=== PATIENT | female | born 1940 | race Hispanic/Latino ===

== ENCOUNTER → 2017-02-22 | Day surgery (SDC) | payer OTHER ==
[~2017-02-22] MED LIST: BUPIVACAINE 0.25%/EPI 30ML SDV INJ ONE; CATAPRES-TTS 21 EACH PO; DECARA25000 UNIT PO; DILANTIN100 MG PO; EXEMESTANE25 MG PO; FENTANYL CITRATE/PF 100MCG/2 ML INJ ONE; LEVOTHYROXINE100 MC1 PO; LIDOCAINE HCL 1% LOCAL INJ 20 ML VIAL ONE; LIDOCAINE HCL 2% LOCAL INJ 5 ML SDV VIAL INJ ONE; OMEPRAZOLE40 MG PO; ONCE DAILY1 EACH PO; OXYBUTYNIN CHLOR5 M1 PO; PROBIOTIC & AC1 EACH PO; PROPOFOL IV EMULSION 10 MG/ML 50 ML VIAL ONE; RESTASIS1 EACH OP; SERTRALINE HCL50 MG PO; STOOL SOFTENER100 MG PO; TYLENOL WITH C1 EACH PO
[2017-02-22 13:10] LABS: BASOPHILS % 0.7 % (0.0-1.0); EOSINOPHILS % 0.7 % (0.0-6.0); HEMATOCRIT 40.8 % (34.2-44.1); HEMOGLOBIN 13.8 g/dL (12.0-16.0); LYMPHOCYTES # (AUTO) 2.3 (1.0-3.2); LYMPHOCYTES % 38.3 % (18.0-39.1); MEAN CORPUSCULAR HEMOGLOBIN 32.2 pg (28-32); MEAN CORPUSCULAR HGB CONC 33.8 g/dL (31-35); MEAN CORPUSCULAR VOLUME 95.1 fL (81-99); MONOCYTES # (AUTO) 0.4 (0.2-0.8); MONOCYTES % 6.1 % (4.4-11.3); NEUTROPHILS # (AUTO) 3.3 (2.1-6.9); PLATELET COUNT 251 x10e3/uL (140-360); RED BLOOD COUNT 4.29 x10e6/uL (3.6-5.1); RED CELL DISTRIBUTION WIDTH 14.5 % (11.7-14.4)
[2017-02-22 13:27] LABS: ALANINE AMINOTRANSFERASE 32 IU/L (0-55); ALBUMIN 4.1 g/dL (3.5-5.0); ALBUMIN/GLOBULIN RATIO 1.1 (0.8-2.0); ALKALINE PHOSPHATASE 142 IU/L (40-150); ANION GAP 14.6 mmol/L (8-16); BLOOD UREA NITROGEN 12 mg/dL (7-26); BUN/CREATININE RATIO 16 (6-25); CALCIUM 9.3 mg/dL (8.4-10.2); CARBON DIOXIDE 26 mmol/L (22-29); CHLORIDE 103 mmol/L (98-107); CREATININE, SERUM 0.74 mg/dL (0.57-1.11); EST GLOMERULAR FILTRATION RATE > 60 ML/MIN (60-); GLUCOSE 96 mg/dL (74-118); POTASSIUM 3.6 mmol/L (3.5-5.1); SODIUM 140 mmol/L (136-145)
--- NOTE | 2017-02-22 16:26 | Operative Report ---
PREOPERATIVE DIAGNOSIS: Malfunctioning venous access port. POSTOPERATIVE DIAGNOSIS: Malfunctioning venous access port. OPERATION PERFORMED: Removal of right subclavian venous access port. ANESTHESIA: Local 1% Xylocaine and MAC. COMPLICATIONS: None. ESTIMATED BLOOD LOSS: Minimal. DESCRIPTION OF PROCEDURE: With the patient lying in bed in the supine position under good IV sedation, the right chest was prepped with Betadine solution and draped in the usual manner. The area overlying the port was then infiltrated with 1% Xylocaine solution. An incision was made, carried down through the subcutaneous tissue and through the capsule of the port. The port was being held down with 3 sutures of Prolene. All 3 were removed and the port very easily was removed in its entirety without any problems. The hemostasis was ascertained. The capsule of the port was then closed with interrupted sutures of 3-0 Vicryl. The subcutaneous tissue was approximated with 4-0 Vicryl and the skin was closed with subcuticular 5-0 Vicryl. Benzoin, Steri-Strips, and dressings were applied. The sponge, lap, and needle count was correct. The patient tolerated the procedure well and returned to the recovery room in stable condition. Job#: [id number] VAS
== END | disposition home or self-care (01) ==
LOC: OR 12:09
PROVIDERS: ATTEND Surgery
DX: T82.598A Other mechanical complication of other cardiac and vascular devices and implants, initial encounter (principal); C50.919 Malignant neoplasm of unspecified site of unspecified female breast; I10 Essential (primary) hypertension; E78.5 Hyperlipidemia, unspecified; M19.90 Unspecified osteoarthritis, unspecified site; R56.9 Unspecified convulsions; K29.70 Gastritis, unspecified, without bleeding; K21.9 Gastro-esophageal reflux disease without esophagitis; N39.0 Urinary tract infection, site not specified; R05 Cough; F32.9 Major depressive disorder, single episode, unspecified; Y83.8 Other surgical procedures as the cause of abnormal reaction of the patient, or of later complication, without mention of misadventure at the time of the procedure
CPT/HCPCS: 36415; 36590; 80053; 85025; 93005; J2001 ×2

== ENCOUNTER 2017-02-26 10:44 | Emergency (ER) | payer OTHER ==
[~2017-02-26] VITALS: Ht 157.5 cm; Wt 60.3 kg
[~2017-02-26 10:44] MED LIST changes: -BUPIVACAINE 0.25%/EPI 30ML SDV INJ ONE; -FENTANYL CITRATE/PF 100MCG/2 ML INJ ONE; -LIDOCAINE HCL 1% LOCAL INJ 20 ML VIAL ONE; -LIDOCAINE HCL 2% LOCAL INJ 5 ML SDV VIAL INJ ONE; -PROPOFOL IV EMULSION 10 MG/ML 50 ML VIAL ONE
== END 2017-02-26 12:08 | disposition home or self-care (01) ==
LOC: ER 10:44
DX: H10.023 Other mucopurulent conjunctivitis, bilateral (principal); I10 Essential (primary) hypertension
CPT/HCPCS: 99282

== ENCOUNTER 2017-03-01 11:24 | Emergency (ER) | payer OTHER ==
[~2017-03-01] VITALS: Ht 157.5 cm; Wt 60.3 kg
== END 2017-03-01 13:06 | disposition home or self-care (01) ==
LOC: ER 11:24
DX: H10.13 Acute atopic conjunctivitis, bilateral (principal)
CPT/HCPCS: 99281

== ENCOUNTER 2018-06-20 06:58 | Observation (INO) | payer OTHER ==
--- NOTE | 2018-06-17 11:01 | Diagnostic Imaging Report ---
EXAMINATION: CHEST 2 VIEWS INDICATION: Pre-op radiograph. COMPARISON: None FINDINGS: TUBES and LINES: None. LUNGS: Lungs are well inflated. There is no evidence of pneumonia or pulmonary edema. PLEURA: No pleural effusion or pneumothorax. HEART AND MEDIASTINUM: The cardiomediastinal silhouette is unremarkable. BONES AND SOFT TISSUES: No acute osseous abnormality. Status post right mastectomy. Right axillary surgical clips. UPPER ABDOMEN: No free air under the diaphragm. IMPRESSION: No acute radiographic abnormality. Signed by: Dr. Jacques Samuel MD on 06/17/2018 10:58 AM
--- OUTSIDE RECORDS SUMMARY | 2018-06-20 07:02 | XMS REPORT | Summary of Care ---
Author Author [facility] Organization [facility] Address Unknown Phone Unavailable Encounter HQ Ryan(FIN) [id number] Date(s): 05/14/17 - 05/14/17 [facility] [address], [address] [place], [place] [id number]- [phone] Discharge Disposition: Home or Self Care Attending Physician: Melissa Griffin MD Vital Signs Most recent to 1 2 oldest [Reference Range]: Height 157.48 cm (05/14/17 11:30 AM) Temperature Oral 97.3 DegF [96.4-99.1 DegF] (05/14/17 11:30 AM) Blood Pressure 135/67 mmHg 152/75 mmHg [90-140/60-90 mmHg] (05/14/17 1:36 PM) *HI* (05/14/17 11:30 AM) Respiratory Rate 16 BRMIN [14-20 BRMIN] (05/14/17 11:30 AM) Peripheral Pulse 66 bpm Rate [60-100 bpm] (05/14/17 11:30 AM) Weight 59.545 kg (05/14/17 11:30 AM) Body Mass Index 24.01 m2 (05/14/17 11:30 AM) Problem List Condition Effective Dates Status Health Status Informant 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 Colitis(Confirmed)2 Resolved Conjunctivitis3 01/02/13 Resolved Intolerance of oral Active bisphosphonate therapy(Confirmed) Gastritis(Confirmed) Active GERD - Active Gastro-esophageal reflux disease(Confirmed) H/O squamous cell Resolved carcinoma of skin(Confirmed) Hyperlipidemia(Confi Active rmed) Hypothyroidism(Confi Active rmed)4 Irritable bowel Active syndrome5 Recurrent cancer of Active right breast.(Confirmed) Mixed anxiety and 12/08/12 Active depressive disorder(Confirmed)6 Osteoarthritis7 06/06/13 Active Osteoporosis(Confirm Active ed) Seizure Active disorder(Confirmed)8 UI (urinary Active incontinence)(Confir med) Vitamin D 08/09/13 Active deficiency9 1Data migrated from [employer] on 08/04/14. 2hospitalized 10/03/2015 and received antibiotics 3Data migrated from [employer] on 09/22/14. 4Data migrated from [employer] on 08/04/14. 5Data migrated from [employer] on 08/04/14. 6Data migrated from [employer] on 08/04/14. 7Data migrated from [employer] on 08/04/14. 8Data migrated from [employer] on 08/04/14. 9Data migrated from [employer] on 08/04/14. Allergies, Adverse Reactions, Alerts Substance Reaction Severity Status penicillins1 Active penicillin Active midazolam2 Active Versed Active 1Data migrated from [employer] on 10/04/14. Originally documented as PENICILLIN. 2Data migrated from [employer] on 07/03/14. Originally documented as VERSED. Medications levothyroxine 88 mcg (0.088 mg) oral tablet 88 microgram=1 tab, PO, Daily, # 90 tab, 0 Refill(s), [id number], Dose decrease from 100 to 88 mcg Start Date: 02/19/17 Stop Date: 03/09/17 Status: Completed levothyroxine 88 mcg (0.088 mg) oral tablet See Instructions, # 90 tab, TAKE ONE TABLET BY MOUTH ONCE DAILY .DOSE DECREASE FROM 100 TO 88 MCG., [id number] Start Date: 08/03/17 Stop Date: 09/13/17 Status: Discontinued Results No data available for this section Immunizations Given and Recorded Vaccine Date Status Refusal Reason influenza virus vaccine, inactivated1 12/08/17 Given influenza virus vaccine, inactivated2 12/18/16 Given influenza virus vaccine, inactivated 02/11/15 Given influenza virus vaccine, inactivated3 02/15/14 Given influenza virus vaccine, inactivated4 11/29/13 Given influenza virus vaccine, inactivated5 12/08/12 Given pneumococcal 13-valent vaccine6 02/15/14 Given Hx influenza vaccine-unspecified7 12/08/12 Given pneumococcal 23-valent vaccine8 01/14/12 Given 1Result Comment: Patient waited in room ten mins no allergic reaction. 2Result Comment: Patient waited in room ten mins, no allergic reaction. 3Admin Note: had at Drs office in nov 2013 4Result Comment: fluzone high dose [[id number]]. Migrated from OBS ; Data migrated from [employer] on 04/09/2015. 5Result Comment: fluzone (>3 yrs.) [[id number]]. Migrated from OBS ; Data migrated from [employer] on 04/09/2015. 6Admin Note: had at Drs office 2 years ago 7Result Comment: done. Migrated from OBS ; Data migrated from [employer] on 04/09/2015. 8Result Comment: pneumovax. Migrated from OBS ; Data migrated from [employer] on 04/09/2015. Procedures Procedure Date Related Diagnosis Body Site Status Mammogram1, 2 03/31/18 Completed Examination of eye3 01/14/18 Completed Bone density scan4 10/20/17 Completed Mastectomy of right breast5 01/2016 Completed Biopsy of breast6 09/05/15 Completed Echocardiogram7 12/28/14 Completed Endoscopy8 11/21/14 Completed Colonoscopy9 12/2011 Completed Appendectomy Completed CEIOL - Cataract extraction and insertion of Completed intraocular lens Cholecystectomy Completed Hysterectomy Completed Lithotripsy of gall bladder using Completed fluoroscopic guidance 1Lymph node 3 cm needs USG biopsy. 2Left diagnostic mammogram: negative. aanual screening in a year Dr Trujillo 3Dr Fuad Solano 4Osteoporosis 5010/16/2015 6Right breast invasive lobular carcinoma 7EF 68% Dr Blackmon 8Gastritis (Dr Rondon) 9Internal Hemorrhoids Dr Rondon Social History Social History Type Response Substance Abuse Use: None. Alcohol Never Smoking Status Never smoker; Exposure to Tobacco Smoke None; Cigarette Smoking Last 365 Days No; Reg Smoking Cessation Counseling No entered on: 03/14/18 Assessment and Plan No data available for this section
--- OUTSIDE RECORDS SUMMARY | 2018-06-20 07:02 | XMS REPORT | Summary of Care ---
Author Author [facility] Organization [facility] Address Unknown Phone Unavailable Encounter MATT Davis(FIN) [id number] Date(s): 05/14/17 - 05/14/17 [facility] [address], [address] [place] [address] [phone] Discharge Disposition: Home or Self Care Attending [...] Active deficiency1 Colitis(Confirmed)2 Resolved Conjunctivitis3 01/02/13 Resolved Gastritis(Confirmed) Active GERD - Active Gastro-esophageal reflux disease(Confirmed) H/O squamous cell Resolved carcinoma of skin(Confirmed) Hypertriglyceridemia Active (Confirmed) Hypothyroidism(Confi Active rmed)4 Irritable bowel Active syndrome5 [...] Daily, # 90 tab, 0 Refill(s), [id number], Dose decrease from 100 to 88 mcg Start Date: 02/19/17 Stop Date: 03/09/17 Status: Completed levothyroxine 88 mcg (0.088 mg) oral tablet See Instructions, # 90 tab, TAKE ONE TABLET BY MOUTH ONCE DAILY .DOSE DECREASE FROM 100 TO 88 MCG., Pharmacy: [id number] Start Date: 08/03/17 Status: Ordered Results No data available for this section Immunizations Given and Recorded Vaccine Date Status Refusal Reason influenza virus vaccine, inactivated1 12/18/16 Given influenza virus vaccine, inactivated 02/11/15 Given influenza virus vaccine, inactivated2 02/15/14 Given influenza virus vaccine, inactivated3 11/29/13 Given influenza virus vaccine, inactivated4 12/08/12 Given pneumococcal 13-valent vaccine5 02/15/14 Given Hx influenza vaccine-unspecified6 12/08/12 Given pneumococcal 23-valent vaccine7 01/14/12 Given 1Result Comment: Patient waited in room ten mins, no allergic reaction. 2Admin Note: had at Drs office in nov 2013 3Result Comment: fluzone high dose [[id number]]. Migrated from OBS ; Data migrated from [employer] on 04/09/2015. 4Result Comment: fluzone (>3 yrs.) [[id number]]. Migrated from OBS ; Data migrated from [employer] on 04/09/2015. 5Admin Note: had at Drs office 2 years ago 6Result Comment: done. Migrated from OBS ; Data migrated from [employer] on 04/09/2015. 7Result Comment: pneumovax. Migrated from OBS ; Data migrated from [employer] on 04/09/2015. Procedures Procedure Date Related Diagnosis Body Site Status Examination of eye1 07/07/17 Completed Mammogram2 02/10/17 Completed Mastectomy of right breast3 01/2016 Completed Biopsy of breast4 09/05/15 Completed Bone density scan 07/23/15 Completed Echocardiogram5 12/28/14 Completed Endoscopy6 11/21/14 Completed Colonoscopy7 12/2011 Completed Appendectomy Completed CEIOL - Cataract extraction and insertion of Completed intraocular lens Cholecystectomy Completed Hysterectomy Completed Lithotripsy of gall bladder using Completed fluoroscopic guidance 1Dr Fuad Solano 2Left diagnostic mammogram: negative. aanual screening in a year Dr Trujillo 4Right breast invasive lobular carcinoma 5EF 68% Dr Blackmon 6Gastritis (Dr Rondon) 7Internal Hemorrhoids Dr Rondon Social History Social History Type Response Substance Abuse Use: None. Alcohol Never Smoking Status Never smoker; Exposure to Tobacco Smoke None; Cigarette Smoking Last 365 Days No; Reg Smoking Cessation Counseling No entered on: 05/14/17 Assessment and Plan No data available for this section
--- OUTSIDE RECORDS SUMMARY | 2018-06-20 07:02 | XMS REPORT | Continuity of Care Document ---
Author Author [facility] Interface Address Unknown Phone Unavailable Problems Problem Status Onset Date Classification Date Reported Comments Source UNK Active 03/27/2016 [facility] C50.919 Active 01/28/2016 [facility] COLITIS Active 10/02/2015 [facility] ABD PAIN Active 10/02/2015 [facility] ABN MAMMO RT BREAST Active 07/29/2015 [facility] Dizziness<sup>5</sup> Active 10/02/2014 Problem 04/04/2016 Data migrated from [employer] on 10/27/14. [facility] Dizziness<sup>3</sup> Active 10/02/2014 Problem 10/07/2015 Data migrated from [employer] on 10/27/14. 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 [facility] Vitamin D deficiency<sup>9</sup> Active 08/09/2013 Problem 06/06/2018 Data migrated from [employer] on 08/04/14. [facility] Cobalamin deficiency<sup>2</sup> Active 08/09/2013 Problem 04/04/2016 Data migrated from [employer] on 08/04/14. [facility] Vitamin D deficiency<sup>14</sup> Active 08/09/2013 Problem 04/04/2016 Data migrated from [employer] on 08/04/14. [facility] Vitamin D deficiency<sup>11</sup> Active 08/09/2013 Problem 10/07/2015 Data migrated from [employer] on 08/04/14. [facility] Osteoarthritis<sup>7</sup> Active 06/06/2013 Problem 06/06/2018 Data migrated from [employer] on 08/04/14. [facility] Osteoarthritis<sup>10</sup> Active 06/06/2013 Problem 04/04/2016 Data migrated from [employer] on 08/04/14. [facility] Tinnitus<sup>13</sup> Active 06/06/2013 Problem 04/04/2016 Data migrated from [employer] on 08/04/14. [facility] Osteoarthritis<sup>8</sup> Active 06/06/2013 Problem 10/07/2015 Data migrated from [employer] on 08/04/14. [facility] Tinnitus<sup>10</sup> Active 06/06/2013 Problem 10/07/2015 Data migrated from [employer] on 08/04/14. [facility] Conjunctivitis<sup>3</sup> Resolved 01/02/2013 Problem 06/06/2018 Data migrated from [employer] on 09/22/14. [facility] Conjunctivitis<sup>4</sup> Resolved 01/02/2013 Problem 04/04/2016 Data migrated from [employer] on 09/22/14. [facility] Conjunctivitis<sup>2</sup> Resolved 01/02/2013 Problem 10/07/2015 Data migrated from [employer] on 09/22/14. [facility] Mixed anxiety and depressive disorder<sup>6</sup> Active 12/08/2012 Problem 06/06/2018 Data migrated from [employer] on 08/04/14. [facility] Mixed anxiety and depressive disorder<sup>9</sup> Active 12/08/2012 Problem 04/04/2016 Data migrated from [employer] on 08/04/14. [facility] Mixed anxiety and depressive disorder<sup>7</sup> Active 12/08/2012 Problem 10/07/2015 Data migrated from [employer] on 08/04/14. [facility] Grand mal seizure Active 09/30/2010 Problem 02/19/2014 [facility] Colitis<sup>2</sup> Resolved Problem 06/06/2018 hospitalized 10/03/2015 and received antibiotics [facility] Gastritis Active Problem 06/06/2018 [facility] GERD - Gastro-esophageal reflux disease Active Problem 06/06/2018 [facility] H/O squamous cell carcinoma of skin Resolved Problem 06/06/2018 [facility] Hypertriglyceridemia Active Problem 08/21/2017 [facility] Hypothyroidism<sup>4</sup> Active Problem 06/06/2018 Data migrated from [employer] on 08/04/14. [facility] Irritable bowel syndrome<sup>5</sup> Active Problem 06/06/2018 Data migrated from [employer] on 08/04/14. [facility] Recurrent cancer of right breast. Active Problem 06/06/2018 [facility] Osteoporosis Active Problem 06/06/2018 [facility] Seizure disorder<sup>8</sup> Active Problem 06/06/2018 Data migrated from [employer] on 08/04/14. 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 [facility] Impaired fasting glycaemia<sup>7</sup> Active Problem 04/04/2016 Data migrated from [employer] on 08/04/14. [facility] Irritable bowel syndrome<sup>8</sup> Active Problem 04/04/2016 Data migrated from [employer] on 08/04/14. [facility] Overactive bladder Active Problem 04/04/2016 [facility] Recurrent cyst of breast<sup>11</sup> Active Problem 04/04/2016 right breast [facility] Seizure Active Problem 11/21/2015 [facility] Seizure disorder<sup>12</sup> Active Problem 04/04/2016 Data migrated from [employer] on 08/04/14. [facility] Depression Active Problem 04/04/2016 [facility] Motion sickness Active Problem 04/04/2016 [facility] Breast cancer Active Problem 10/07/2015 [facility] Impaired fasting glycaemia<sup>5</sup> Active Problem 10/07/2015 Data migrated from [place] on 08/04/14. [facility] Irritable bowel syndrome<sup>6</sup> Active Problem 10/07/2015 Data migrated from [employer] on 08/04/14. [facility] Seizure disorder<sup>9</sup> Active Problem 10/07/2015 Data migrated from [employer] on 08/04/14. 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 Active [facility] Medications Medication Details Route Status Patient Instructions Ordering Provider Order Date Source Prolia as directed Subcutaneous Active 60 MG/ML Subcutaneous q 6 months Blake 12/13/2017 Ramy Blake meloxicam 7.5 mg oral tablet 7.5 mg=1 tab, PO, BID, as needed for pain, # 40 tab, 0 Refill(s), Pharmacy: [id number] Active 09/13/2017 [facility] levothyroxine 100 mcg (0.1 mg) oral tablet 100 microgram=1 tab, PO, Daily, # 30 tab, 1 Refill(s), Pharmacy: [id number], Dose increased from 88 to 100 mcg Active 09/13/2017 [facility] levothyroxine 88 mcg (0.088 mg) oral tablet See Instructions, # 90 tab, TAKE ONE TABLET BY MOUTH ONCE DAILY .DOSE DECREASE FROM 100 TO 88 MCG., Pharmacy: [id number] No Longer Active 08/03/2017 [facility] levothyroxine 88 mcg (0.088 mg) oral tablet 88 microgram=1 tab, PO, Daily, # 90 tab, 0 Refill(s), Pharmacy: [id number], Dose decrease from 100 to 88 mcg No Longer Active 02/19/2017 [facility] acetaminophen-codeine #3 1 tab, Route: PO, Drug Form: TAB, Dosing Weight 61.989, kg, Q4H, PRN Pain Score 4-6, Start date: 04/01/16 13:14:00 [employer]YPESET[employer] MACHINE OPERATOR, Duration: 30 day, Stop date: 05/01/16 13:13:00 [employer]RON[employer] TYPESETTING MACHINE OPERATOR No Longer Active 04/01/2016 [facility] Acetaminophen 300 MG / Codeine Phosphate 30 MG Oral Tablet [Tylenol with Codeine #3] 1 - 2 tab, PO, Q4H, PRN Pain, X 4 day, # 36 tab, 0 Refill(s) Active 04/01/2016 [facility] propofol (ANES) Route: IV, Drug form: INJ, ONCE, Stop date: 04/01/16 13:09:00 [employer]LECTRON[employer] TYPESETTING MACHINE OPERATOR Inactive 04/01/2016 [facility] ondansetron (ANES) Route: IV, Drug form: INJ, ONCE, Stop date: 04/01/16 13:09:00 [employer]LECTRON[employer] TYPESETTING MACHINE OPERATOR Inactive 04/01/2016 [facility] ceFAZolin (ANES) Route: IV, Drug form: INJ, ONCE, Stop date: 04/01/16 13:09:00 ELECTRONIC TYPESETTING MACHINE OPERATOR Inactive 04/01/2016 [facility] lidocaine (ANES) Route: IV, Drug form: INJ, ONCE, Stop date: 04/01/16 13:09:00 [employer]LECTRONIC TYPESETTING MACHINE OPERATOR Inactive 04/01/2016 [facility] phenylephrine (ANES) Route: IV, Drug form: INJ, ONCE, Stop date: 04/01/16 13:09:00 ELECTRONIC TYPESETTING MACHINE OPERATOR Inactive 04/01/2016 [facility] fentaNYL (ANES) Route: IV, Drug form: INJ, ONCE, Stop date: 04/01/16 13:09:00 ELECTRONIC TYPESETTING MACHINE OPERATOR Inactive 04/01/2016 [facility] dexamethasone (ANES) Route: IV, Drug form: INJ, ONCE, Stop date: 04/01/16 13:09:00 [employer]LECTRONIC TYPESETTING MACHINE OPERATOR Inactive 04/01/2016 [facility] Albuterol 0.83 MG/ML Inhalant Solution 2.49 mg, Route: NEB, Q20Min, Dosing Weight 61.989, kg, PRN Wheezing, Priority: STAT, Start date: 04/01/16 13:08:00 [employer]LECTRON[employer] TYPESETTING MACHINE OPERATOR, Duration: 30 day, Stop date: 05/01/16 13:07:00 ELECTRONIC TYPESETTING MACHINE OPERATOR No Longer Active 04/01/2016 [facility] Diphenhydramine 12.5 mg, Route: IVP, Drug form: INJ, Q6H, Dosing Weight 61.989, kg, PRN Itching, Start date: 04/01/16 13:08:00 ELECTRONIC TYPESETTING MACHINE OPERATOR, Duration: 30 day, Stop date: 05/01/16 13:07:00 ELECTRONIC TYPESETTING MACHINE OPERATOR No Longer Active 04/01/2016 [facility] Flumazenil 0.2 mg, Route: IVP, PRN, Dosing Weight 61.989, kg, PRN Benzodiazepine Reversal, Initial dose, Start date: 04/01/16 13:08:00 ELECTRONIC TYPESETTING MACHINE OPERATOR, Duration: 30 day, Stop date: 05/01/16 13:07:00 ELECTRONIC TYPESETTING MACHINE OPERATOR No Longer Active 04/01/2016 [facility] Naloxone 0.4 mg, Route: IVP, Q2MIN, Dosing Weight 61.989, kg, PRN Narcotic Reversal, Start date: 04/01/16 13:08:00 ELECTRONIC TYPESETTING MACHINE OPERATOR, Duration: 8 doses or times, Stop date: Limited # of times No Longer Active 04/01/2016 [facility] Meperidine 12.5 mg, Route: IVP, Q30Min, Dosing Weight 61.989, kg, PRN Other -See Comment, For shivering, Start date: 04/01/16 13:08:00 ELECTRONIC TYPESETTING MACHINE OPERATOR, Duration: 2 doses or times, Stop date: Limited # of times No Longer Active 04/01/2016 [facility] Ondansetron 4 mg, Route: IVP, ONCE, Dosing Weight 61.989, kg, PRN Nausea & Vomiting, Start date: 04/01/16 13:08:00 ELECTRONIC TYPESETTING MACHINE OPERATOR Inactive 04/01/2016 [facility] Hydromorphone 0.5 mg, Route: IVP, Q5Min, Dosing Weight 61.989, kg, PRN Pain Score 7-10, Start date: 04/01/16 13:08:00 ELECTRONIC TYPESETTING MACHINE OPERATOR, Duration: 4 doses or times, Stop date: Limited # of times No Longer Active 04/01/2016 [facility] Oxycodone 5 mg, Route: PO, Drug form: TAB, Q4H, Dosing Weight 61.989, kg, PRN Pain Score 4-6, Start date: 04/01/16 13:08:00 ELECTRONIC TYPESETTING MACHINE OPERATOR, Duration: 30 day, Stop date: 05/01/16 13:07:00 ELECTRONIC TYPESETTING MACHINE OPERATOR No Longer Active 04/01/2016 [facility] Fentanyl 25 microgram, Route: IVP, Q5Min, Dosing Weight 61.989, kg, PRN Pain Score 4-6, Priority: Routine, Start date: 04/01/16 13:08:00 ELECTRONIC TYPESETTING MACHINE OPERATOR, Duration: 4 doses or times, Stop date: Limited # of times No Longer Active 04/01/2016 [facility] Hydralazine 10 mg, Route: IVP, Q20Min, Dosing Weight 61.989, kg, PRN Elevated BP, Start date: 04/01/16 13:08:00 ELECTRONIC TYPESETTING MACHINE OPERATOR, Duration: 2 doses or times, Stop date: Limited # of times No Longer Active 04/01/2016 [facility] esmolol 10 mg, Route: IVP, Q5Min, Dosing Weight 61.989, kg, PRN Other -See Comment, Start date: 04/01/16 13:08:00 ELECTRONIC TYPESETTING MACHINE OPERATOR, Duration: 5 doses or times, Stop date: Limited # of times No Longer Active 04/01/2016 [facility] Labetalol 10 mg, Route: IVP, Q5Min, Dosing Weight 61.989, kg, PRN Elevated BP, Start date: 04/01/16 13:08:00 ELECTRONIC TYPESETTING MACHINE OPERATOR, Duration: 5 doses or times, Stop date: Limited # of times No Longer Active 04/01/2016 [facility] Acetaminophen 1,000 mg, Route: PO, Drug form: TAB, ONCE, Dosing Weight 61.989, kg, PRN Pain Score 1-3, Start date: 04/01/16 13:08:00 ELECTRONIC TYPESETTING MACHINE OPERATOR, Duration: 1 doses or times, Stop date: Limited # of times No Longer Active 04/01/2016 [facility] LR 1000 mL INJ (ANES) Route: IV, Total Volume: 1,000, Start date: 04/01/16 12:20:00 ELECTRONIC TYPESETTING MACHINE OPERATOR, Stop date: 04/01/16 13:20:00 ELECTRONIC TYPESETTING MACHINE OPERATOR Inactive 04/01/2016 [facility] Calcium Chloride 0.0014 MEQ/ML / Potassium Chloride 0.004 MEQ/ML / Sodium Chloride 0.103 MEQ/ML / Sodium Lactate 0.028 MEQ/ML Injectable Solution 1,000 mL, Rate: 25 ml/hr, Infuse over: 40 hr, Route: IV, Dosing Weight 61.989 kg, Total Volume: 1,000, Start date: 04/01/16 10:34:00 ELECTRONIC TYPESETTING MACHINE OPERATOR, Duration: 30 day, Stop date: 05/01/16 10:33:00 ELECTRONIC TYPESETTING MACHINE OPERATOR No Longer Active 04/01/2016 [facility] Radha-Colace Reformulated Apr 2007 2 tab, PO, Dinner, 0 Refill(s) Active 03/31/2016 [facility] omeprazole 40 mg oral delayed release capsule 40 mg=1 cap, PO, Daily, # 90 cap, 0 Refill(s) Active 03/31/2016 [facility] levothyroxine 100 mcg (0.1 mg) oral tablet 100 microgram=1 tab, PO, Daily, # 90 tab, 1 Refill(s) Active 03/31/2016 [facility] Ondansetron 4 mg, Route: IVP, ONCE, Dosing Weight 62.182, kg, PRN Nausea & Vomiting, Start date: 02/03/16 12:21:00 ELECTRONIC TYPESETTING MACHINE OPERATOR Inactive 02/03/2016 [facility] Naloxone 0.4 mg, Route: IVP, Q2MIN, Dosing Weight 62.182, kg, PRN Narcotic Reversal, Start date: 02/03/16 12:21:00 ELECTRONIC TYPESETTING MACHINE OPERATOR, Duration: 8 doses or times, Stop date: Limited # of times No Longer Active 02/03/2016 [facility] Morphine 2 mg, Route: IVP, Q5Min, Dosing Weight 62.182, kg, PRN Pain Score 4-6, Start date: 02/03/16 12:21:00 ELECTRONIC TYPESETTING MACHINE OPERATOR, Duration: 5 doses or times, Stop date: Limited # of times No Longer Active 02/03/2016 [facility] Flumazenil 0.2 mg, Route: IVP, PRN, Dosing Weight 62.182, kg, PRN Benzodiazepine Reversal, Initial dose, Start date: 02/03/16 12:21:00 ELECTRONIC TYPESETTING MACHINE OPERATOR, Duration: 30 day, Stop date: 03/04/16 12:20:00 ELECTRONIC TYPESETTING MACHINE OPERATOR No Longer Active 02/03/2016 [facility] Labetalol 10 mg, Route: IVP, Q5Min, Dosing Weight 62.182, kg, PRN Elevated BP, Start date: 02/03/16 12:21:00 ELECTRONIC TYPESETTING MACHINE OPERATOR, Duration: 5 doses or times, Stop date: Limited # of times No Longer Active 02/03/2016 [facility] glycopyrrolate (ANES) Route: IV, Drug form: INJ, ONCE, Stop date: 02/03/16 12:01:00 ELECTRONIC TYPESETTING MACHINE OPERATOR Inactive 02/03/2016 [facility] neostigmine (ANES) Route: IV, Drug form: INJ, ONCE, Stop date: 02/03/16 12:01:00 ELECTRONIC TYPESETTING MACHINE OPERATOR Inactive 02/03/2016 [facility] acetaminophen (ANES) Route: IV, Drug form: INJ, ONCE, Stop date: 02/03/16 12:01:00 ELECTRONIC TYPESETTING MACHINE OPERATOR Inactive 02/03/2016 [facility] ondansetron (ANES) Route: IV, Drug form: INJ, ONCE, Stop date: 02/03/16 12:01:00 ELECTRONIC TYPESETTING MACHINE OPERATOR Inactive 02/03/2016 [facility] fentaNYL (ANES) Route: IV, Drug form: INJ, ONCE, Stop date: 02/03/16 11:55:00 ELECTRONIC TYPESETTING MACHINE OPERATOR Inactive 02/03/2016 [facility] lidocaine (ANES) Route: IV, Drug form: INJ, ONCE, Stop date: 02/03/16 11:55:00 ELECTRONIC TYPESETTING MACHINE OPERATOR Inactive 02/03/2016 [facility] rocuronium (ANES) Route: IV, Drug form: INJ, ONCE, Stop date: 02/03/16 11:55:00 ELECTRONIC TYPESETTING MACHINE OPERATOR Inactive 02/03/2016 [facility] propofol (ANES) Route: IV, Drug form: INJ, ONCE, Stop date: 02/03/16 11:55:00 ELECTRONIC TYPESETTING MACHINE OPERATOR Inactive 02/03/2016 [facility] Calcium Chloride 0.0014 MEQ/ML / Potassium Chloride 0.004 MEQ/ML / Sodium Chloride 0.103 MEQ/ML / Sodium Lactate 0.028 MEQ/ML Injectable Solution 1,000 mL, Rate: 25 ml/hr, Infuse over: 40 hr, Route: IV, Dosing Weight 62.182 kg, Total Volume: 1,000, Start date: 02/03/16 11:34:00 ELECTRONIC TYPESETTING MACHINE OPERATOR, Duration: 30 day, Stop date: 03/04/16 11:33:00 ELECTRONIC TYPESETTING MACHINE OPERATOR Inactive 02/03/2016 [facility] LR 1000 mL INJ (ANES) Route: IV, Total Volume: 1,000, Start date: 02/03/16 11:00:00 ELECTRONIC TYPESETTING MACHINE OPERATOR, Stop date: 02/03/16 12:00:00 ELECTRONIC TYPESETTING MACHINE OPERATOR Inactive 02/03/2016 [facility] ketOROLAC 30 mg/mL injectable solution 30 mg, Route: IV, POST OP, Dosing Weight 62.5, kg, Start date: 11/18/15 13:00:00 CDT Inactive 11/18/2015 [facility] Promethazine 6.25 mg, Route: IVPB, ONCE, Dosing Weight 62.5, kg, PRN Nausea & Vomiting, Start date: 11/18/15 12:01:00 CDT Inactive 11/18/2015 [facility] Ondansetron 4 mg, Route: IVP, ONCE, Dosing Weight 61.364, kg, PRN Nausea & Vomiting, Start date: 11/18/15 12:01:00 CDT Inactive 11/18/2015 [facility] Diphenhydramine 12.5 mg, Route: IVP, Drug form: INJ, Q6H, Dosing Weight 62.5, kg, PRN Itching, Start date: 11/18/15 12:01:00 CDT, Duration: 30 day, Stop date: 12/18/15 12:00:00 CDT Inactive 11/18/2015 [facility] Meperidine 12.5 mg, Route: IVP, Q30Min, Dosing Weight 62.5, kg, PRN Other -See Comment, For shivering, Start date: 11/18/15 12:01:00 CDT, Duration: 2 doses or times, Stop date: Limited # of times Inactive 11/18/2015 [facility] Naloxone 0.4 mg, Route: IVP, Q2MIN, Dosing Weight 61.364, kg, PRN Narcotic Reversal, Start date: 11/18/15 12:01:00 CDT, Duration: 8 doses or times, Stop date: Limited # of times Inactive 11/18/2015 [facility] Oxycodone 5 mg, Route: PO, Drug form: TAB, Q4H, Dosing Weight 61.364, kg, PRN Pain Score 4-6, Start date: 11/18/15 12:01:00 CDT, Duration: 30 day, Stop date: 12/18/15 12:00:00 CDT Inactive 11/18/2015 [facility] Hydralazine 10 mg, Route: IVP, Q20Min, Dosing Weight 62.5, kg, PRN Elevated BP, Start date: 11/18/15 12:01:00 CDT, Duration: 2 doses or times, Stop date: Limited # of times Inactive 11/18/2015 [facility] Labetalol 10 mg, Route: IVP, Q5Min, Dosing Weight 62.5, kg, PRN Elevated BP, Start date: 11/18/15 12:01:00 CDT, Duration: 5 doses or times, Stop date: Limited # of times Inactive 11/18/2015 [facility] esmolol 10 mg, Route: IVP, Q5Min, Dosing Weight 62.5, kg, PRN Other -See Comment, Start date: 11/18/15 12:01:00 CDT, Duration: 5 doses or times, Stop date: Limited # of times Inactive 11/18/2015 [facility] Fentanyl 25 microgram, Route: IVP, Q5Min, Dosing Weight 61.364, kg, PRN Pain Score 4-6, Start date: 11/18/15 12:01:00 CDT, Duration: 4 doses or times, Stop date: Limited # of times Inactive 11/18/2015 [facility] Hydromorphone 0.5 mg, Route: IVP, Q5Min, Dosing Weight 61.364, kg, PRN Pain Score 7-10, Start date: 11/18/15 12:01:00 CDT, Duration: 4 doses or times, Stop date: Limited # of times Inactive 11/18/2015 [facility] Acetaminophen 1,000 mg, Route: PO, Drug form: TAB, ONCE, Dosing Weight 62.5, kg, PRN Pain Score 1-3, Start date: 11/18/15 12:01:00 CDT, Duration: 1 doses or times, Stop date: Limited # of times Inactive 11/18/2015 [facility] Sodium Chloride 0.154 MEQ/ML Injectable Solution 500 mL, Rate: 125 ml/hr, Infuse over: 4 hr, Route: IV, Dosing Weight 62.5 kg, Total Volume: 500, Start date: 11/18/15 12:01:00 CDT, Duration: 30 day, Stop date: 12/18/15 12:00:00 CDT Inactive 11/18/2015 [facility] Calcium Chloride 0.0014 MEQ/ML / Potassium Chloride 0.004 MEQ/ML / Sodium Chloride 0.103 MEQ/ML / Sodium Lactate 0.028 MEQ/ML Injectable Solution 1,000 mL, Rate: 125 ml/hr, Infuse over: 8 hr, Route: IV, Dosing Weight 62.5 kg, Total Volume: 1,000, Start date: 11/18/15 12:01:00 CDT, Duration: 30 day, Stop date: 12/18/15 12:00:00 CDT Inactive 11/18/2015 [facility] Flumazenil 0.2 mg, Route: IVP, PRN, Dosing Weight 61.364, kg, PRN Benzodiazepine Reversal, Initial dose, Start date: 11/18/15 12:01:00 CDT, Duration: 30 day, Stop date: 12/18/15 12:00:00 CDT Inactive 11/18/2015 [facility] tramadol hydrochloride 50 MG Oral Tablet 50 mg=1 tab, PO, Q6H, PRN Pain, X 10 day, # 20 tab, 0 Refill(s) Active 11/18/2015 [facility] acetaminophen (ANES) Route: IV, Drug form: INJ, ONCE, Stop date: 11/18/15 11:43:00 CDT Inactive 11/18/2015 [facility] ondansetron (ANES) Route: IV, Drug form: INJ, ONCE, Stop date: 11/18/15 11:38:00 CDT Inactive 11/18/2015 [facility] famotidine (ANES) Route: IV, Drug form: INJ, ONCE, Stop date: 11/18/15 11:38:00 CDT Inactive 11/18/2015 [facility] lidocaine (ANES) Route: IV, Drug form: INJ, ONCE, Stop date: 11/18/15 11:33:00 CDT Inactive 11/18/2015 [facility] ceFAZolin (ANES) Route: IV, Drug form: INJ, ONCE, Stop date: 11/18/15 11:33:00 CDT Inactive 11/18/2015 [facility] fentaNYL (ANES) Route: IV, Drug form: INJ, ONCE, Stop date: 11/18/15 11:33:00 CDT Inactive 11/18/2015 [facility] propofol (ANES) Route: IV, Drug form: INJ, ONCE, Stop date: 11/18/15 11:33:00 CDT Inactive 11/18/2015 [facility] LR 1000 mL INJ (ANES) Route: IV, Total Volume: 1,000, Start date: 11/18/15 10:47:00 CDT, Stop date: 11/18/15 11:47:00 CDT Inactive 11/18/2015 [facility] Albuterol 0.833 MG/ML / Ipratropium [place] 0.167 MG/ML Inhalant Solution 3 mL, Route: NEB, Dosing Weight 62.5, kg, ONCE, STAT, Start date: 11/18/15 9:34:00 CDT, Stop date: 11/18/15 9:34:00 CDT Inactive 11/18/2015 [facility] Sodium Chloride 0.154 MEQ/ML Injectable Solution 500 mL, Rate: 25 ml/hr, Infuse over: 20 hr, Route: IV, Dosing Weight 62.5 kg, Total Volume: 500, Start date: 11/18/15 9:34:00 CDT, Duration: 30 day, Stop date: 12/18/15 9:33:00 CDT Inactive 11/18/2015 [facility] Calcium Chloride 0.0014 MEQ/ML / Potassium Chloride 0.004 MEQ/ML / Sodium Chloride 0.103 MEQ/ML / Sodium Lactate 0.028 MEQ/ML Injectable Solution 1,000 mL, Rate: 25 ml/hr, Infuse over: 40 hr, Route: IV, Dosing Weight 62.5 kg, Total Volume: 1,000, Start date: 11/18/15 9:34:00 CDT, Duration: 30 day, Stop date: 12/18/15 9:33:00 CDT Inactive 11/18/2015 [facility] tramadol hydrochloride 50 MG Oral Tablet 100 mg, Route: PO, Drug form: TAB, ONCE, Dosing Weight 61.364, kg, PRN Pain Score 4-6, Start date: 10/16/15 15:54:00 CDT, Stop date: 11/15/15 15:53:00 CDT Inactive 10/16/2015 [facility] Promethazine 6.25 mg, Route: IVPB, ONCE, Dosing Weight 61.364, kg, PRN Nausea & Vomiting, Start date: 10/16/15 12:40:00 CDT Inactive 10/16/2015 [facility] Ondansetron 4 mg, Route: IVP, ONCE, Dosing Weight 61.364, kg, PRN Nausea & Vomiting, Start date: 10/16/15 12:40:00 CDT Inactive 10/16/2015 [facility] Meperidine 12.5 mg, Route: IVP, Q30Min, Dosing Weight 61.364, kg, PRN Other -See Comment, For shivering, Start date: 10/16/15 12:40:00 CDT, Duration: 2 doses or times, Stop date: Limited # of times Inactive 10/16/2015 [facility] Hydralazine 10 mg, Route: IVP, Q20Min, Dosing Weight 61.364, kg, PRN Elevated BP, Start date: 10/16/15 12:40:00 CDT, Duration: 2 doses or times, Stop date: Limited # of times Inactive 10/16/2015 [facility] esmolol 10 mg, Route: IVP, Q5Min, Dosing Weight 61.364, kg, PRN Other -See Comment, Start date: 10/16/15 12:40:00 CDT, Duration: 5 doses or times, Stop date: Limited # of times Inactive 10/16/2015 [facility] Labetalol 10 mg, Route: IVP, Q5Min, Dosing Weight 61.364, kg, PRN Elevated BP, Start date: 10/16/15 12:40:00 CDT, Duration: 5 doses or times, Stop date: Limited # of times Inactive 10/16/2015 [facility] Acetaminophen 1,000 mg, Route: IVPB, Drug form: INJ, ONCE, Dosing Weight 61.364, kg, PRN Pain Score 1-3, Start date: 10/16/15 12:40:00 CDT, Duration: 1 doses or times, Stop date: Limited # of times Inactive 10/16/2015 [facility] Calcium Chloride 0.0014 MEQ/ML / Potassium Chloride 0.004 MEQ/ML / Sodium Chloride 0.103 MEQ/ML / Sodium Lactate 0.028 MEQ/ML Injectable Solution 1,000 mL, Rate: 125 ml/hr, Infuse over: 8 hr, Route: IV, Dosing Weight 61.364 kg, Total Volume: 1,000, Start date: 10/16/15 12:40:00 CDT, Duration: 30 day, Stop date: 11/15/15 12:39:00 CDT Inactive 10/16/2015 [facility] Sodium Chloride 0.154 MEQ/ML Injectable Solution 500 mL, Rate: 125 ml/hr, Infuse over: 4 hr, Route: IV, Dosing Weight 61.364 kg, Total Volume: 500, Start date: 10/16/15 12:40:00 CDT, Duration: 30 day, Stop date: 11/15/15 12:39:00 CDT Inactive 10/16/2015 [facility] Flumazenil 0.2 mg, Route: IVP, PRN, Dosing Weight 61.364, kg, PRN Benzodiazepine Reversal, Initial dose, Start date: 10/16/15 12:40:00 CDT, Duration: 30 day, Stop date: 11/15/15 12:39:00 CDT Inactive 10/16/2015 [facility] Naloxone 0.4 mg, Route: IVP, Q2MIN, Dosing Weight 61.364, kg, PRN Narcotic Reversal, Start date: 10/16/15 12:40:00 CDT, Duration: 8 doses or times, Stop date: Limited # of times Inactive 10/16/2015 [facility] Diphenhydramine 12.5 mg, Route: IVP, Drug form: INJ, Q6H, Dosing Weight 61.364, kg, PRN Itching, Start date: 10/16/15 12:40:00 CDT, Duration: 30 day, Stop date: 11/15/15 12:39:00 CDT Inactive 10/16/2015 [facility] Fentanyl 25 microgram, Route: IVP, Q5Min, Dosing Weight 61.364, kg, PRN Pain Score 4-6, Start date: 10/16/15 12:40:00 CDT, Duration: 4 doses or times, Stop date: Limited # of times Inactive 10/16/2015 [facility] Oxycodone 10 mg, Route: PO, Drug form: TAB, Q4H, Dosing Weight 61.364, kg, PRN Pain Score 7-10, Start date: 10/16/15 12:40:00 CDT, Duration: 30 day, Stop date: 11/15/15 12:39:00 CDT Inactive 10/16/2015 [facility] Hydromorphone 0.5 mg, Route: IVP, Q5Min, Dosing Weight 61.364, kg, PRN Pain Score 7-10, Start date: 10/16/15 12:40:00 CDT, Duration: 4 doses or times, Stop date: Limited # of times Inactive 10/16/2015 [facility] tramadol hydrochloride 50 MG Oral Tablet 50 mg=1 tab, PO, Q6H, PRN Pain, X 10 day, # 20 tab, 0 Refill(s) Active 10/16/2015 [facility] ketOROLAC (ANES) IV, ONCE Inactive 10/16/2015 [facility] ondansetron (ANES) Route: IV, Drug form: INJ, ONCE, Stop date: 10/16/15 12:00:00 CDT Inactive 10/16/2015 [facility] clindamycin (ANES) Route: IV, Drug form: INJ, ONCE, Stop date: 10/16/15 12:00:00 CDT Inactive 10/16/2015 [facility] dexamethasone (ANES) Route: IV, Drug form: INJ, ONCE, Stop date: 10/16/15 12:00:00 CDT Inactive 10/16/2015 [facility] lidocaine (ANES) Route: IV, Drug form: INJ, ONCE, Stop date: 10/16/15 11:55:00 CDT Inactive 10/16/2015 [facility] propofol (ANES) Route: IV, Drug form: INJ, ONCE, Stop date: 10/16/15 11:55:00 CDT Inactive 10/16/2015 [facility] fentaNYL (ANES) Route: IV, Drug form: INJ, ONCE, Stop date: 10/16/15 11:55:00 CDT Inactive 10/16/2015 [facility] Albuterol 0.833 MG/ML / Ipratropium [place] 0.167 MG/ML Inhalant Solution 3 mL, Route: NEB, Dosing Weight 61.364, kg, ONCE, STAT, Start date: 10/16/15 10:58:00 CDT, Stop date: 10/16/15 10:58:00 CDT Inactive 10/16/2015 [facility] Calcium Chloride 0.0014 MEQ/ML / Potassium Chloride 0.004 MEQ/ML / Sodium Chloride 0.103 MEQ/ML / Sodium Lactate 0.028 MEQ/ML Injectable Solution 1,000 mL, Rate: 25 ml/hr, Infuse over: 40 hr, Route: IV, Dosing Weight 61.364 kg, Total Volume: 1,000, Start date: 10/16/15 10:58:00 CDT, Duration: 30 day, Stop date: 11/15/15 10:57:00 CDT Inactive 10/16/2015 [facility] Sodium Chloride 0.154 MEQ/ML Injectable Solution 500 mL, Rate: 25 ml/hr, Infuse over: 20 hr, Route: IV, Dosing Weight 61.364 kg, Total Volume: 500, Start date: 10/16/15 10:58:00 CDT, Duration: 30 day, Stop date: 11/15/15 10:57:00 CDT Inactive 10/16/2015 [facility] LR 1000 mL INJ (ANES) Route: IV, Total Volume: 1,000, Start date: 10/16/15 10:54:00 CDT, Stop date: 10/16/15 11:54:00 CDT Inactive 10/16/2015 [facility] EVA EVA, PO, Daily, Refill(s) 0 Active 10/09/2015 [facility] stool softener stool softener, Daily, Refill(s) 0 Active 10/09/2015 [facility] Ondansetron 4 MG Oral Tablet [Zofran] 4 mg=1 tab, PO, TID, # 3 tab, 0 Refill(s) Active 10/09/2015 [facility] Probiotic Formula 1 cap, PO, Daily, 0 Refill(s) Active 10/09/2015 [facility] multivitamin PO, Daily, 0 Refill(s) Active 10/09/2015 [facility] meclizine 25 mg oral tablet 25 mg=1 tab, PO, TID, PRN Other- See Comments, # 30 tab, 0 Refill(s) Active 10/09/2015 [facility] ciprofloxacin 500 mg oral tablet 500 mg=1 tab, PO, Q12H, X 7 day, # 14 tab, 0 Refill(s) Active 10/04/2015 [facility] Metronidazole 500 MG Oral Tablet 500 mg=1 tab, PO, Q8H, X 7 day, # 21 tab, 0 Refill(s) Active 10/04/2015 [facility] potassium chloride 40 mEq, 2 tab, Route: PO, Drug form: ERTAB, ONCE, Dosing Weight 65.455, kg, Start date: 10/04/15 9:35:00 CDT, Stop date: 10/04/15 9:35:00 CDTNotes: (Same as: K-Dur 20) "Do Not Crush" With food and full glass of water Inactive 10/04/2015 [facility] Thyroxine 100 microgram, 1 tab, Route: PO, Drug form: TAB, Q6AM, Dosing Weight 65.455, kg, Start date: 10/04/15 6:00:00 CDT, Duration: 30 day, Stop date: 11/02/15 6:00:00 CDTNotes: Take 1 hour before or 2 hours after meal; Enteral feeds may interefere with the absorption of this medication. (Same as:Levothroid, Synthroid) Inactive 10/04/2015 [facility] Calcium Carbonate 1500 MG / Cholecalciferol 400 UNT Oral Tablet 1 tab, Route: PO, Drug Form: TAB, Dosing Weight 65.455, kg, BID-Meals, Start date: 10/03/15 17:00:00 CDT, Duration: 30 day, Stop date: 11/02/15 8:00:00 CDTNotes: (Same As: Keron-D, OsCal-D, Oyster Calcium) No Longer Active 10/03/2015 [facility] Phenytoin sodium 100 MG Extended Release Capsule [Dilantin] 300 mg, 3 cap, Route: PO, Drug form: ERCAP, Bedtime, Dosing Weight 65.455, kg, Start date: 10/03/15 9:09:00 CDT, Duration: 30 day, Stop date: 11/01/15 21:00:00 CDT No Longer Active 10/03/2015 [facility] Pepcid 20 mg, 1 tab, Route: PO, Drug form: TAB, Daily, Start date: 10/03/15 9:00:00 CDT, Duration: 30 day, Stop date: 11/01/15 9:00:00 CDTNotes: (Same as: Pepcid) No Longer Active 10/03/2015 [facility] Enoxaparin 40 mg, 0.4 mL, Route: SUB-Q, Drug form: INJ, [id number], Dosing Weight 65.455, kg, Start date: 10/03/15 9:00:00 CDT, Duration: 30 day, Stop date: 11/01/15 9:00:00 CDTNotes: (Same as: Lovenox) No Longer Active 10/03/2015 [facility] Streptococcus pneumoniae serotype 1 capsular antigen diphtheria [id number] protein conjugate vaccine / Streptococcus pneumoniae serotype 14 capsular antigen diphtheria [id number] protein conjugate vaccine / Streptococcus pneumoniae serotype 18C capsular antigen d 0.5 mL, Route: IM, Drug Form: INJ, Daily, Start date: 10/03/15 9:00:00 CDT, Duration: 1 doses or times, Stop date: 10/03/15 9:00:00 CDTNotes: Lightly roll vial (DO NOT SHAKE) before administration. (Same as: Prevnar 13) Inactive 10/03/2015 [facility] Sertraline 50 mg, 1 tab, Route: PO, Drug form: TAB, Daily, Dosing Weight 65.455, kg, Start date: 10/03/15 9:00:00 CDT, Duration: 30 day, Stop date: 11/01/15 9:00:00 CDTNotes: (Same as: Zoloft) No Longer Active 10/03/2015 [facility] Ranitidine 150 MG Oral Tablet 150 mg, 1 tab, Route: PO, Drug form: TAB, Daily, Dosing Weight 65.455, kg, Start date: 10/03/15 9:00:00 CDT, Duration: 30 day, Stop date: 11/01/15 9:00:00 CDT Inactive 10/03/2015 [facility] Lorazepam 1 mg, 1 tab, Route: PO, Drug form: TAB, Q8H, Dosing Weight 65.455, kg, PRN Anxiety, Start date: 10/03/15 8:23:00 CDT, Duration: 30 day, Stop date: 11/02/15 8:22:00 CDTNotes: (Same as: Ativan) No Longer Active 10/03/2015 [facility] Dilaudid 0.5 mg, 0.5 mL, Route: IV, Drug form: INJ, Q4H, Dosing Weight 61.364, kg, PRN Pain Score 7-10, Start date: 10/03/15 4:11:00 CDT, Duration: 30 day, Stop date: 11/02/15 4:10:00 CDT No Longer Active 10/03/2015 [facility] Saline Flush 0.9% 10 ml, Route: IVP, Drug Form: INJ, Dosing Weight 61.364, kg, PRN, PRN Line Flush, Start date: 10/03/15 3:31:00 CDT, Duration: 30 day, Stop date: 11/02/15 3:30:00 CDTNotes: (Same as: BD Posiflush) No Longer Active 10/03/2015 [facility] Ondansetron 4 mg, 2 mL, Route: IVP, Drug form: INJ, Q6H, Dosing Weight 61.364, kg, PRN Nausea & Vomiting, Start date: 10/03/15 3:31:00 CDT, Duration: 30 day, Stop date: 11/02/15 3:30:00 CDTNotes: (Same as: Zofran) MEDICATION WASTE Product Size: 4 mg Product Wasted: ___ mg No Longer Active 10/03/2015 [facility] Morphine 4 mg, 2 mL, Route: IVP, Drug form: INJ, Q4H, Dosing Weight 61.364, kg, PRN Pain Score 7-10, Start date: 10/03/15 3:31:00 CDT, Duration: 30 day, Stop date: 11/02/15 3:30:00 CDTNotes: (Same as:MORPhine Sulfate) No Longer Active 10/03/2015 [facility] Flagyl 500 mg, 100 mL, Route: IVPB, Drug form: INJ, ABXQ8H, Dosing Weight 61.364, kg, Priority: STAT, Start date: 10/03/15 3:31:00 CDT, Duration: 30 day, Stop date: 11/01/15 18:00:00 CDTNotes: (Same as: Flagyl) Avoid alcohol. No Longer Active 10/03/2015 [facility] Cipro 400 mg, 200 mL, Route: IVPB, Drug form: INJ, [id number], Dosing Weight 61.364, kg, Priority: STAT, Start date: 10/03/15 3:31:00 CDT, Duration: 30 day, Stop date: 11/01/15 15:00:00 CDTNotes: Do not refrigerate No Longer Active 10/03/2015 [facility] Morphine 4 mg, Route: IVP, Drug form: INJ, ONCE, Dosing Weight 61.364, kg, Priority: STAT, Start date: 10/03/15 2:15:00 CDT, Stop date: 10/03/15 2:15:00 CDT Inactive 10/03/2015 [facility] Ciprofloxacin 400 mg, Route: IVPB, ONCE, Dosing Weight 61.364, kg, Priority: STAT, Start date: 10/03/15 1:20:00 CDT, Stop date: 10/03/15 1:20:00 CDT Inactive 10/03/2015 [facility] Metronidazole 500 mg, Route: IVPB, ONCE, Dosing Weight 61.364, kg, Priority: STAT, Start date: 10/03/15 1:20:00 CDT, Stop date: 10/03/15 1:20:00 CDT Inactive 10/03/2015 [facility] Ondansetron 4 mg, 2 mL, Route: IVP, Drug form: INJ, ONCE, Dosing Weight 61.364, kg, Priority: STAT, Start date: 10/02/15 21:33:00 CDT, Stop date: 10/02/15 21:33:00 CDTNotes: (Same as: Zofran) MEDICATION WASTE Product Size: 4 mg Product Wasted: ___ mg Inactive 10/03/2015 [facility] Morphine 4 mg, 2 mL, Route: IVP, Drug form: INJ, ONCE, Dosing Weight 61.364, kg, Priority: STAT, Start date: 10/02/15 21:33:00 CDT, Stop date: 10/02/15 21:33:00 CDTNotes: (Same as:MORPhine Sulfate) Inactive 10/03/2015 [facility] Sodium Chloride 0.154 MEQ/ML Injectable Solution 1,000 mL, 2,000 ml/hr, Infuse Over: 30 minutes, Route: IV, 1,000, Drug form: INJ, ONCE, Priority: STAT, Dosing Weight 61.364 kg, Start date: 10/02/15 21:33:00 CDT, Duration: 1 doses or times, Stop date: 10/02/15 21:33:00 CDT Inactive 10/03/2015 [facility] Protonix 40 mg, 1 tab, Route: PO, Drug form: ECTAB, Before Dinner, Start date: 02/16/14 16:30:00, Duration: 30 day, Stop date: 03/17/14 16:30:00Notes: Tablet should not be chewed or crushed. (Same as: Protonix) Inactive 02/16/2014 [facility] vancomycin 250 mg/5 mL oral solution 125 mg=2.5 mL, PO, ABXQ6H, # 100 mL, 0 Refill(s) Active 02/16/2014 [facility] Calcium Gluconate 2 gm, 20 mL, Route: IVPB, PRN, Dosing Weight 61.364, kg, PRN Abnormal Lab Result, For NON-ICU Patients Only., Start date: 02/16/14 15:07:00, Duration: 30 day, Stop date: 03/18/14 15:06:00 Inactive 02/16/2014 [facility] Potassium Chloride 20 mEq, 15 mL, Route: NJ, Drug form: LIQ, PRN, Dosing Weight 61.364, kg, PRN Abnormal Lab Result, For NON-ICU Patients Only, Start date: 02/16/14 15:07:00, Duration: 30 day, Stop date: 03/18/14 15:06:00Notes: (Same as: Potassium Chloride) Inactive 02/16/2014 [facility] Phosphorus / Potassium 15 mmol, 5 mL, Route: IVPB, PRN, Dosing Weight 61.364, kg, PRN Abnormal Lab Result, For NON-ICU Patients Only., Start date: 02/16/14 15:07:00, Duration: 30 day, Stop date: 03/18/14 15:06:00Notes: (Same as: K Phosphate.) 1 mMol phoshate has 1.47 mEq potassium Infuse over 4 hours Inactive 02/16/2014 [facility] Sodium Phosphate, Monobasic 15 mmol, 5 mL, Route: IVPB, PRN, Dosing Weight 61.364, kg, PRN Abnormal Lab Result, For NON-ICU Patients Only., Start date: 02/16/14 15:07:00, Duration: 30 day, Stop date: 03/18/14 15:06:00 Inactive 02/16/2014 [facility] Magnesium Sulfate 2 gm, 50 mL, Route: IVPB, Drug form: INJ, PRN, Dosing Weight 61.364, kg, PRN Abnormal Lab Result, For NON-ICU Patients Only., Start date: 02/16/14 15:07:00, Duration: 30 day, Stop date: 03/18/14 15:06:00 Inactive 02/16/2014 [facility] Magnesium Oxide 800 mg, 2 tab, Route: PO, Drug form: TAB, PRN, Dosing Weight 61.364, kg, PRN Abnormal Lab Result, For NON-ICU Patients Only., Start date: 02/16/14 15:07:00, Duration: 30 day, Stop date: 03/18/14 15:0 6:00Notes: (Same as: Mag-Ox 400) Magnesium oxide [id number] elemental magnesium Dose=____mg magnesium oxide (___mg elemental magnesium) Inactive 02/16/2014 [facility] potassium phosphate-sodium phosphate 250 mg-278 mg-164 mg oral powder 2 pkt, Route: PO, Drug Form: PDR/REC, Dosing Weight 61.364, kg, PRN, PRN Abnormal Lab Result, For NON-ICU Patients Only, Start date: 02/16/14 15:07:00, Duration: 30 day, Stop date: 03/18/14 15:06:00Notes: (Same as: Neutra- Phos) Each 1.25 gm pkt has 250mg phosphorous. Mix w/2.5oz water and stir. Inactive 02/16/2014 [facility] Sertraline 50 mg, 1 tab, Route: PO, Drug form: TAB, Daily, Dosing Weight 61.364, kg, Start date: 02/16/14 9:00:00, Duration: 30 day, Stop date: 03/17/14 9:00:00Notes: (Same as: Zoloft) Inactive 02/16/2014 [facility] oxybutynin 15 mg, 3 tab, Route: PO, Drug form: ERTAB, Daily, Dosing Weight 61.364, kg, Start date: 02/16/14 9:00:00, Duration: 30 day, Stop date: 03/17/14 9:00:00Notes: (Same as: Ditropan XL) "Do Not Crush" Inactive 02/16/2014 [facility] Nexium 40 mg, Route: PO, Drug form: ECCAP, Daily, Dosing Weight 61.364, kg, Start date: 02/16/14 9:00:00, Duration: 30 day, Stop date: 03/17/14 9:00:00 No Longer Active 02/16/2014 [facility] Thyroxine 88 microgram, 1 tab, Route: PO, Drug form: TAB, [id number], Dosing Weight 61.364, kg, Start date: 02/16/14 6:30:00, Duration: 30 day, Stop date: 03/17/14 6:30:00Notes: Take 1 hour before or 2 hours after meal; Enteral feeds may interefere with the absorption of this medication. (Same as:Synthroid) Inactive 02/16/2014 [facility] Nitroglycerin 0.4 MG Sublingual Tablet 0.4 mg, 1 tab, Route: SL, Drug form: TAB, Q5Min, Dosing Weight 61.364, kg, PRN Chest Pain, Start date: 02/16/14 6:13:00, Duration: 30 day, Stop date: 03/18/14 6:12:00, Chest Pain,repeat Q5 minutes for total of 3 dosesNotes: (Same as:Nitroquick, Nitrostat) "Do Not Crush" Sublingual tablet Inactive 02/16/2014 [facility] Atropine 0.5 mg, 1.25 mL, Route: IVP, Drug form: INJ, PRN, Dosing Weight 61.364, kg, PRN See Nurse's Notes, Start date: 02/16/14 6:13:00, Duration: 30 day, Stop date: 03/18/14 6:12:00, symptomatic bradycardia, HR Inactive 02/16/2014 [facility] Phenytoin 200 mg, 2 cap, Route: PO, Drug form: ERCAP, Bedtime, Dosing Weight 61.364, kg, Start date: 02/15/14 21:00:00, Duration: 30 day, Stop date: 03/16/14 21:00:00Notes: (Same as: Dilantin) Do not open, crush, or chew. No Longer Active 02/16/2014 [facility] Vancomycin 125 mg, 2.5 mL, Route: PO, Drug form: SUSP, ABXQ6H, Dosing Weight 61.364, kg, Priority: NOW, Start date: 02/15/14 14:03:00, Duration: 30 day, Stop date: 03/17/14 8:03:00Notes: "DILUTE EACH DOSE WITH 30ML OF WATER OR APPLE/ORANGE JUICE PRIOR TO ADMINISTRATION" No Longer Active 02/15/2014 [facility] Esomeprazole 40 MG Enteric Coated Capsule [Nexium] 40 mg=1 cap, PO, Daily Active 02/15/2014 [facility] phenytoin 100 mg oral capsule, extended release 200 mg=2 cap, PO, Bedtime Active 02/15/2014 [facility] sertraline 50 mg oral tablet 50 mg=1 tab, PO, Daily Active 02/15/2014 [facility] Enoxaparin 40 mg, 0.4 mL, Route: SUB-Q, Drug form: INJ, [id number], Dosing Weight 61.364, kg, Start date: 02/15/14 9:00:00, Duration: 30 day, Stop date: 03/16/14 9:00:00Notes: (Same as: Lovenox) No Longer Active 02/15/2014 [facility] Phenergan 6.25 mg, 0.25 mL, Route: IVPB, Drug form: INJ, Q6H, Dosing Weight 61.364, kg, PRN Nausea & Vomiting, Start date: 02/15/14 8:30:00, Duration: 30 day, Stop date: 03/17/14 8:29:00Notes: Do not give IV p ush. (Same as: Phenergan) No Longer Active 02/15/2014 [facility] Ciprofloxacin 400 mg, 200 mL, Route: IVPB, Drug form: INJ, [id number], Dosing Weight 61.364, kg, Priority: STAT, Start date: 02/15/14 4:34:00, Duration: 30 day, Stop date: 03/16/14 16:34:00Notes: Do not refrigerate Inactive 02/15/2014 [facility] Flagyl 500 mg, 100 mL, Route: IVPB, Drug form: INJ, ABXQ8H, Dosing Weight 61.364, kg, Priority: STAT, Start date: 02/15/14 4:34:00, Duration: 30 day, Stop date: 03/16/14 20:34:00Notes: (Same as: Flagyl) Avoid alcohol. No Longer Active 02/15/2014 [facility] Sodium Chloride 0.154 MEQ/ML Injectable Solution 1,000 mL, Rate: 125 ml/hr, Infuse over: 8 hr, Route: IV, Dosing Weight 61.364 kg, Total Volume: 1,000, Start date: 02/15/14 4:34:00, Duration: 30 day, Stop date: 03/17/14 4:33:00 No Longer Active 02/15/2014 [facility] Saline Flush 0.9% 10 ml, Route: IVP, Drug Form: INJ, Dosing Weight 61.364, kg, PRN, PRN Line Flush, Start date: 02/15/14 4:34:00, Duration: 30 day, Stop date: 03/17/14 4:33:00Notes: (Same as: BD Posiflush) No Longer Active 02/15/2014 [facility] Acetaminophen 650 mg, 2 tab, Route: PO, Drug form: TAB, Q4H, Dosing Weight 61.364, kg, PRN Pain 1-3/Temp > 100.4 F, Start date: 02/15/14 4:34:00, Duration: 30 day, Stop date: 03/17/14 4:33:00Notes: Do not exceed 4 gm/day. (Same as: Tylenol) No Longer Active 02/15/2014 [facility] Morphine 2 mg, 1 mL, Route: IVP, Drug form: INJ, Q3H, Dosing Weight 61.364, kg, PRN Pain Score 4-6, Start date: 02/15/14 4:34:00, Duration: 30 day, Stop date: 03/17/14 4:33:00Notes: (Same as:MORPhine Sulfate) No Longer Active 02/15/2014 [facility] Docusate 100 mg, 1 cap, Route: PO, Drug form: CAP, BID, Dosing Weight 61.364, kg, PRN Constipation, Start date: 02/15/14 4:34:00, Duration: 30 day, Stop date: 03/17/14 4:33:00Notes: (Same as: Colace) (Do Not Crush) No Longer Active 02/15/2014 [facility] Cipro 400 mg, Route: IVPB, ONCE, Dosing Weight 61.364, kg, Priority: STAT, Start date: 02/15/14 3:57:00, Stop date: 02/15/14 3:57:00 Inactive 02/15/2014 [facility] Flagyl 500 mg, 100 mL, Route: IVPB, Drug form: INJ, ONCE, Dosing Weight 61.364, kg, Priority: STAT, Start date: 02/15/14 3:56:00, Stop date: 02/15/14 3:56:00Notes: (Same as: Flagyl) Avoid alcohol. Inactive 02/15/2014 [facility] Zofran 4 mg, Route: IM, Drug form: INJ, ONCE, Dosing Weight 61.364, kg, Priority: STAT, Start date: 02/15/14 3:54:00, Stop date: 02/15/14 3:54:00 Inactive 02/15/2014 [facility] Zofran 4 mg, Route: IVP, Drug form: INJ, ONCE, Dosing Weight 61.364, kg, Priority: STAT, Start date: 02/15/14 1:48:00, Stop date: 02/15/14 1:48:00 Inactive 02/15/2014 [facility] Morphine 4 mg, Route: IVP, Drug form: INJ, ONCE, Dosing Weight 61.364, kg, Priority: STAT, Start date: 02/15/14 1:48:00, Stop date: 02/15/14 1:48:00 Inactive 02/15/2014 [facility] Ketorolac 30 mg, Route: IVP, Drug form: INJ, ONCE, Dosing Weight 61.364, kg, Priority: STAT, Start date: 02/14/14 23:11:00, Stop date: 02/14/14 23:11:00 Inactive 02/15/2014 [facility] Pepcid 20 mg, Route: IV, ONCE, Dosing Weight 61.364, kg, Start date: 02/14/14 23:07:00, Stop date: 02/14/14 23:07:00 Inactive 02/15/2014 [facility] GI cocktail 30 mL, Route: PO, Dosing Weight 61.364, kg, ONCE, STAT, Start date: 02/14/14 23:07:00, Stop date: 02/14/14 23:07:00 Inactive 02/15/2014 [facility] Potassium Chloride 1.33 MEQ/ML Oral Solution 40 mEq, 30 mL, Route: PO, Drug form: LIQ, ONCE, Dosing Weight 61.364, kg, Priority: STAT, Start date: 02/14/14 23:06:00, Stop date: 02/14/14 23:06:00Notes: (Same as: Potassium Chloride) Inactive 02/15/2014 [facility] Ondansetron 4 mg, 2 mL, Route: IVP, Drug form: INJ, ONCE, Dosing Weight 61.364, kg, Priority: STAT, Start date: 02/14/14 21:33:00, Stop date: 02/14/14 21:33:00Notes: (Same as: Zofran) Inactive 02/15/2014 [facility] GI cocktail 30 mL, Route: PO, Drug Form: SUSP, Dosing Weight 61.364, kg, ONCE, STAT, Start date: 02/14/14 21:33:00, Stop date: 02/14/14 21:33:00Notes: G.I. Cocktail=antacid with simethicone 22.5 mL - lidocaine v iscous 7.5 mL Inactive 02/15/2014 [facility] Famotidine 20 mg, 2 mL, Route: IVP, Drug form: INJ, ONCE, Dosing Weight 61.364, kg, Priority: STAT, Start date: 02/14/14 21:33:00, Stop date: 02/14/14 21:33:00Notes: (Same as: Pepcid) Can be dilute in 5-10cc NS IVP: Slow IV push over at least 2 minutes. Inactive 02/15/2014 [facility] Morphine 4 mg, 2 mL, Route: IVP, Drug form: INJ, ONCE, Dosing Weight 61.364, kg, Priority: STAT, Start date: 02/14/14 21:33:00, Stop date: 02/14/14 21:33:00Notes: (Same as:MORPhine Sulfate) Inactive 02/15/2014 [facility] Saline Flush 0.9% 10 mL, Route: IVP, Drug Form: INJ, Dosing Weight 61.364, kg, PRN, PRN Line Flush, Start date: 02/14/14 21:33:00, Duration: 30 day, Stop date: 03/16/14 21:32:00Notes: (Same as: BD Posiflush) No Longer Active 02/15/2014 [facility] Green Tea as directed Orally Active 150 MG Orally [facility] Ramy Blake Multivitamin as directed Orally Active - Orally [facility] Ramy Blake Dilantin 1 capsule Orally Active 100 MG Orally twice a day [facility] Ramy Blake Oxybutynin Chloride as directed Orally Active 15 MG Orally [facility] Ramy Blake Omeprazole 1 capsule Orally Active 40 MG Orally Once a day [facility] Rmay Blake Probiotic 1 capsule Orally Active 250 MG Orally Twice a day [facility] Ramy Blake Tumeric 1 capsule Orally Active 400 MG Orally Once a day [facility] Ramy Blake Sertraline HCl 1 tablet Orally Active 50 MG Orally Once a day [facility] Ramy lBake Levothyroxine Sodium 1 tablet on an empty stomach in the morning Orally Active 88 MCG Orally Once a day [facility] Ramy Blake Allergies, Adverse Reactions, Alerts Substance Category Reaction Severity Reaction type Status Date Reported Comments Source midazolam<sup>2</sup> Assertion Drug allergy Active 06/06/2013 Data migrated from [place] on 07/03/14. Originally documented as VERSED. [facility] midazolam<sup>1</sup> Assertion Drug allergy Active 06/06/2013 Data migrated from [place] on 07/03/14. Originally documented as VERSED. [facility] penicillins<sup>1</sup> Assertion Drug allergy Active Data migrated from [place] on 10/04/14. Originally documented as PENICILLIN. [facility] penicillin Assertion Drug allergy Active [facility] Versed Assertion Drug allergy Active [facility] penicillins<sup>2</sup> Assertion Drug allergy Active Data migrated from [place] on 10/04/14. Originally documented as PENICILLIN. [facility] Immunizations Immunization Date Given Site Status Last Updated Comments Source influenza virus vaccine, inactivated<sup>1</sup> 12/08/2017 Left Deltoid completed [facility] Result Comment: Patient waited in room ten mins no allergic reaction. [facility] influenza virus vaccine, inactivated<sup>1</sup> 12/18/2016 Left Deltoid completed [facility] Result Comment: Patient waited in room ten mins, no allergic reaction. [facility] influenza virus vaccine, inactivated<sup>2</sup> 12/18/2016 Left Deltoid completed [facility] Result Comment: Patient waited in room ten mins, no allergic reaction. [facility] influenza virus vaccine, inactivated 02/11/2015 Left Deltoid completed [facility] pneumococcal 13-valent vaccine<sup>5</sup> 02/15/2014 completed Hail Admin Note: had at Drs office 2 years ago [facility] pneumococcal 13-valent vaccine<sup>6</sup> 02/15/2014 completed Hail Admin Note: had at Drs office 2 years ago [facility] pneumococcal 13-valent vaccine<sup>2</sup> 02/15/2014 completed Hail 2Admin Note: had at Drs office 2 years ago [facility] influenza virus vaccine, inactivated<sup>2</sup> 02/15/2014 Right upper arm completed Hail Admin Note: had at Drs office in nov 2013 [facility] influenza virus vaccine, inactivated<sup>3</sup> 02/15/2014 Right upper arm completed Hail Admin Note: had at Drs office in nov 2013 [facility] influenza virus vaccine, inactivated<sup>1</sup> 02/15/2014 Right upper arm completed Hail 1Admin Note: had at [facility] office in nov 2013 [facility] influenza virus vaccine, inactivated<sup>3</sup> 11/29/2013 Left Deltoid completed GE Result Comment: fluzone high dose [[id number]]. Migrated from [place] ; Data migrated from [employer] on 04/09/2015. [facility] influenza virus vaccine, inactivated<sup>4</sup> 11/29/2013 Left Deltoid completed GE Result Comment: fluzone high dose [[id number]]. Migrated from OBS ; Data migrated from [employer] on 04/09/2015. [facility] Hx influenza vaccine-unspecified<sup>6</sup> 12/08/2012 completed GE Result Comment: done. Migrated from OBS ; Data migrated from [employer] on 04/09/2015. [facility] Hx influenza vaccine-unspecified<sup>7</sup> 12/08/2012 completed GE Result Comment: done. Migrated from OBS ; Data migrated from [employer] on 04/09/2015. [facility] Hx influenza vaccine-unspecified<sup>1</sup> 12/08/2012 completed GE Result Comment: done. Migrated from OBS ; Data migrated from [employer] on 04/09/2015. [facility] influenza virus vaccine, inactivated<sup>4</sup> 12/08/2012 Right Deltoid completed GE Result Comment: fluzone (>3 yrs.) [[id number]]. Migrated from OBS ; Data migrated from [employer] on 04/09/2015. [facility] influenza virus vaccine, inactivated<sup>5</sup> 12/08/2012 Right Deltoid completed GE Result Comment: fluzone (>3 yrs.) [[id number]]. Migrated from OBS ; Data migrated from [employer] on 04/09/2015. [facility] pneumococcal 23-valent vaccine<sup>7</sup> 01/14/2012 completed GE Result Comment: pneumovax. Migrated from OBS ; Data migrated from [employer] on 04/09/2015. [facility] pneumococcal 23-valent vaccine<sup>8</sup> 01/14/2012 completed GE Result Comment: pneumovax. Migrated from OBS ; Data migrated from [employer] on 04/09/2015. [facility] pneumococcal 23-valent vaccine<sup>6</sup> 01/14/2012 completed [facility] Result Comment: pneumovax. Migrated from [facility] ; Data migrated from [place] on 04/09/2015. [facility] Results Order Name Results Value Reference Range Date Interpretation Comments Source Chest 1view DX Chest 1view DX Chest 1view DX CLINICAL HISTORY:Tube/Catheter Placement COMPARISON: 10/02/2015 FINDINGS/IMPRESSION: Limited AP portable study. Support Lines/Devices: Interval placement of right IJ Port-A-Cath and the tip terminates near SVC right atrial junction. No pneumothorax is evident. Lungs: Patchy infiltrate is noted in the right lower lobe. Findings may be related to atelectasis versus pneumonia. Left lung is clear. Cardiomediastinum: Cardiomediastinal silhouette is stable. Bone and Soft Tissues: No significant abnormality is evident. Multiple EKG leads and other wires project over the patient's chest. SL: [id number] 04/01/2016 - - Read by: Maurizio Lindsey MD Dictated Date/time: 04/01/16 17:32 Electronically Signed by: Maurizio Lindsey MD 04/01/16 17:33 FINAL REPORT [facility] ELECTROLYTES AGAP 11.9 meq/L 10.0 - 20.0 03/31/2016 [facility] ELECTROLYTES eGFR 82 mL/min/1.73m2 03/31/2016 Result Comment: The eGFR is calculated using the CKD-EPI formula. In most young, healthy individuals the eGFR will be >90 mL/min/1.73m2. The eGFR declines with age. An eGFR of 60-89 may be normal in some populations, particularly the elderly, for whom the CKD-EPI formula has not been extensively validated. Use of the eGFR is not recommended in the following populations: Individuals with unstable creatinine concentrations, including patients and those with serious co-morbid conditions. Patients with extremes in muscle mass or diet. The data above are obtained from the National Kidney Disease Education Program (NKDEP) which additionally recommends that when the eGFR is used in patients with extremes of body mass index for purposes of drug dosing, the eGFR should be multiplied by the estimated BMI. [facility] ELECTROLYTES Sodium Lvl 139 meq/L 135 - 145 03/31/2016 [facility] ELECTROLYTES BUN 9 mg/dL 7 - 22 03/31/2016 [facility] ELECTROLYTES Chloride Lvl 105 meq/L 95 - 109 03/31/2016 [facility] ELECTROLYTES CO2 26 meq/L 24 - 32 03/31/2016 [facility] ELECTROLYTES Potassium Lvl 3.9 meq/L 3.5 - 5.1 03/31/2016 [facility] ELECTROLYTES Glucose Lvl 105 mg/dL 70 - 99 03/31/2016 [facility] ELECTROLYTES Creatinine Lvl 0.72 mg/dL 0.50 - 1.40 03/31/2016 [facility] ELECTROLYTES Calcium Lvl 8.7 mg/dL 8.5 - 10.5 03/31/2016 [facility] HEMATOLOGY Basophils 0.7 % 0.0 - 1.0 03/31/2016 [facility] HEMATOLOGY Eosinophils 0.9 % 0.0 - 4.0 03/31/2016 [facility] HEMATOLOGY Monocytes 5.7 % 2.0 - 12.0 03/31/2016 [facility] HEMATOLOGY Monocytes # 0.4 K/CMM 0.0 - 0.8 03/31/2016 [facility] HEMATOLOGY Lymphocytes # 2.6 K/CMM 1.0 - 5.5 03/31/2016 [facility] HEMATOLOGY Segs-Bands # 3.7 K/CMM 1.5 - 8.1 03/31/2016 [facility] HEMATOLOGY Lymphocytes 38.1 % 20.0 - 40.0 03/31/2016 [facility] HEMATOLOGY Segs 54.6 % 45.0 - 75.0 03/31/2016 [facility] HEMATOLOGY Basophils # 0.1 K/CMM 0.0 - 0.2 03/31/2016 [facility] HEMATOLOGY Eosinophils # 0.1 K/CMM 0.0 - 0.5 03/31/2016 [facility] HEMATOLOGY MPV 7.4 fL 7.4 - 10.4 03/31/2016 [facility] HEMATOLOGY Hct 44.6 % 36.0 - 48.0 03/31/2016 [facility] HEMATOLOGY Hgb 15.0 g/dL 12.0 - 16.0 03/31/2016 [facility] HEMATOLOGY RBC 4.70 M/CMM 4.20 - 5.40 03/31/2016 [facility] MCH 32.0 pg 27.0 - 31.0 03/31/2016 [facility] HEMATOLOGY MCV 94.9 fL 80.0 - 98.0 03/31/2016 [facility] HEMATOLOGY Platelet 260 K/CMM 133 - 450 03/31/2016 [facility] HEMATOLOGY RDW 13.6 % 11.5 - 14.5 03/31/2016 [facility] MCHC 33.7 g/dL 32.0 - 36.0 03/31/2016 [facility] HEMATOLOGY WBC 6.8 K/CMM 3.7 - 10.4 03/31/2016 [facility] MPV 6.9 fL 7.4 - 10.4 11/18/2015 [facility] RDW 13.8 % 11.5 - 14.5 11/18/2015 [facility] HEMATOLOGY Platelet 269 K/CMM 133 - 450 11/18/2015 [facility] MCV 94.6 fL 80.0 - 98.0 11/18/2015 [facility] Hgb 14.5 g/dL 12.0 - 16.0 11/18/2015 [facility] Hct 43.9 % 36.0 - 48.0 11/18/2015 [facility] RBC 4.64 M/CMM 4.20 - 5.40 11/18/2015 [facility] WBC 7.3 K/CMM 3.7 - 10.4 11/18/2015 [facility] MCHC 33.1 g/dL 32.0 - 36.0 11/18/2015 [facility] MCH 31.3 pg 27.0 - 31.0 11/18/2015 [facility] Lymphocytes 40.7 % 20.0 - 40.0 11/18/2015 [facility] Monocytes 6.9 % 2.0 - 12.0 11/18/2015 [facility] Eosinophils 3.4 % 0.0 - 4.0 11/18/2015 [facility] Basophils 0.3 % 0.0 - 1.0 11/18/2015 [facility] HEMATOLOGY Segs-Bands # 3.6 K/CMM 1.5 - 8.1 11/18/2015 [facility] Lymphocytes # 3.0 K/CMM 1.0 - 5.5 11/18/2015 [facility] Monocytes # 0.5 K/CMM 0.0 - 0.8 11/18/2015 [facility] Eosinophils # 0.2 K/CMM 0.0 - 0.5 11/18/2015 [facility] Segs 48.7 % 45.0 - 75.0 11/18/2015 [facility] Sentinal Node injection NM Sentinal Node injection NM Sentinal Node injection NM CLINICAL HISTORY: 75 year-old female with right breast carcinoma presents for preoperative sentinel node injection. TECHNIQUE: The patient was cleaned and prepped in the usual manner. 1 mCi of Tc 99m filtered sulfur colloid was administered in the subareolar location of the right breast. The patient tolerated procedure well. The patient's right breast will be massaged per protocol by the industrial technologist prior to sending the patient for surgery. IMPRESSION: Injection performed without incident. No immediate complications. SL: [id number] 10/16/2015 - - Read by: Maurizio Lindsey MD Dictated Date/time: 10/16/15 16:07 Electronically Signed by: Maurizio Lindsey MD 10/16/15 16:08 FINAL REPORT [facility] CHEM PANEL eGFR 88 mL/min/1.73m2 10/09/2015 Result Comment: The eGFR is calculated using the CKD-EPI formula. In most young, healthy individuals the eGFR will be >90 mL/min/1.73m2. The eGFR declines with age. An eGFR of 60-89 may be normal in some populations, particularly the elderly, for whom the CKD-EPI formula has not been extensively validated. Use of the eGFR is not recommended in the following populations: Individuals with unstable creatinine concentrations, including patients and those with serious co-morbid conditions. Patients with extremes in muscle mass or diet. The data above are obtained from the National Kidney Disease Education Program (NKDEP) which additionally recommends that when the eGFR is used in patients with extremes of body mass index for purposes of drug dosing, the eGFR should be multiplied by the estimated BMI. [facility] CHEM PANEL BUN 10 mg/dL 7 - 22 10/09/2015 [facility] CHEM PANEL Glucose Lvl 88 mg/dL 70 - 99 10/09/2015 [facility] CHEM PANEL AGAP 9.8 meq/L 10.0 - 20.0 10/09/2015 [facility] CHEM PANEL Potassium Lvl 3.8 meq/L 3.5 - 5.1 10/09/2015 [facility] CHEM PANEL Sodium Lvl 138 meq/L 135 - 145 10/09/2015 [facility] CHEM PANEL Creatinine Lvl 0.61 mg/dL 0.50 - 1.40 10/09/2015 [facility] CHEM PANEL CO2 28 meq/L 24 - 32 10/09/2015 [facility] CHEM PANEL Chloride Lvl 104 meq/L 95 - 109 10/09/2015 [facility] CHEM PANEL Calcium Lvl 8.7 mg/dL 8.5 - 10.5 10/09/2015 [facility] CHEM PANEL Phosphorus 3.5 mg/dL 2.5 - 4.5 10/04/2015 [facility] CHEM PANEL Magnesium Lvl 1.8 mg/dL 1.8 - 2.4 10/04/2015 [facility] ELECTROLYTES AGAP 16.2 meq/L 10.0 - 20.0 10/04/2015 [facility] ELECTROLYTES eGFR 85 mL/min/1.73m2 10/04/2015 Result Comment: The eGFR is calculated using the CKD-EPI formula. In most young, healthy individuals the eGFR will be >90 mL/min/1.73m2. The eGFR declines with age. An eGFR of 60-89 may be normal in some populations, particularly the elderly, for whom the CKD-EPI formula has not been extensively validated. Use of the eGFR is not recommended in the following populations: Individuals with unstable creatinine concentrations, including patients and those with serious co-morbid conditions. Patients with extremes in muscle mass or diet. The data above are obtained from the National Kidney Disease Education Program (NKDEP) which additionally recommends that when the eGFR is used in patients with extremes of body mass index for purposes of drug dosing, the eGFR should be multiplied by the estimated BMI. [facility] ELECTROLYTES Calcium Lvl 7.9 mg/dL 8.5 - 10.5 10/04/2015 [facility] ELECTROLYTES CO2 23 meq/L 24 - 32 10/04/2015 [facility] ELECTROLYTES Potassium Lvl 3.2 meq/L 3.5 - 5.1 10/04/2015 [facility] ELECTROLYTES Chloride Lvl 105 meq/L 95 - 109 10/04/2015 [facility] ELECTROLYTES Sodium Lvl 141 meq/L 135 - 145 10/04/2015 [facility] ELECTROLYTES Glucose Lvl 107 mg/dL 70 - 99 10/04/2015 [facility] ELECTROLYTES BUN 12 mg/dL 7 - 22 10/04/2015 [facility] ELECTROLYTES Creatinine Lvl 0.68 mg/dL 0.50 - 1.40 10/04/2015 [facility] HEMATOLOGY Monocytes # 0.6 K/CMM 0.0 - 0.8 10/04/2015 [facility] HEMATOLOGY Eosinophils # 0.1 K/CMM 0.0 - 0.5 10/04/2015 [facility] HEMATOLOGY Basophils # 0.1 K/CMM 0.0 - 0.2 10/04/2015 [facility] HEMATOLOGY Lymphocytes # 2.4 K/CMM 1.0 - 5.5 10/04/2015 [facility] HEMATOLOGY Segs 64.2 % 45.0 - 75.0 10/04/2015 [facility] Lymphocytes 27.6 % 20.0 - 40.0 10/04/2015 [facility] Monocytes 6.8 % 2.0 - 12.0 10/04/2015 [facility] Eosinophils 0.8 % 0.0 - 4.0 10/04/2015 [facility] Basophils 0.6 % 0.0 - 1.0 10/04/2015 [facility] Segs-Bands # 5.6 K/CMM 1.5 - 8.1 10/04/2015 [facility] Hct 40.0 % 36.0 - 48.0 10/04/2015 [facility] RBC 4.26 M/CMM 4.20 - 5.40 10/04/2015 [facility] MCV 93.9 fL 80.0 - 98.0 10/04/2015 [facility] WBC 8.8 K/CMM 3.7 - 10.4 10/04/2015 [facility] Hgb 13.7 g/dL 12.0 - 16.0 10/04/2015 [facility] MPV 7.2 fL 7.4 - 10.4 10/04/2015 [facility] Platelet 231 K/CMM 133 - 450 10/04/2015 [facility] RDW 14.2 % 11.5 - 14.5 10/04/2015 [facility] MCHC 34.2 g/dL 32.0 - 36.0 10/04/2015 [facility] MCH 32.1 pg 27.0 - 31.0 10/04/2015 [facility] CHEM PANEL eGFR 83 mL/min/1.73m2 10/03/2015 Result Comment: The eGFR is calculated using the CKD-EPI formula. In most young, healthy individuals the eGFR will be >90 mL/min/1.73m2. The eGFR declines with age. An eGFR of 60-89 may be normal in some populations, particularly the elderly, for whom the CKD-EPI formula has not been extensively validated. Use of the eGFR is not recommended in the following populations: Individuals with unstable creatinine concentrations, including patients and those with serious co-morbid conditions. Patients with extremes in muscle mass or diet. The data above are obtained from the National Kidney Disease Education Program (NKDEP) which additionally recommends that when the eGFR is used in patients with extremes of body mass index for purposes of drug dosing, the eGFR should be multiplied by the estimated BMI. [facility] CHEM PANEL Creatinine Lvl 0.71 mg/dL 0.50 - 1.40 10/03/2015 [facility] HEMATOLOGY Platelet 242 K/CMM 133 - 450 10/03/2015 [facility] TOXICOLOGY Phenytoin Free 0.85 ug/ml 1.00 - 2.00 10/03/2015 [facility] URINE AND STOOL UA Color Ltyellow 10/03/2015 [facility] URINE AND STOOL UA Urobilinogen <=1.0 mg/dL 0.1 - 1.0 10/03/2015 [facility] URINE AND STOOL UA RBC null 0 - 2 10/03/2015 [facility] URINE AND STOOL UA Sq Epi None Seen 10/03/2015 [facility] URINE AND STOOL UA WBC 1 /HPF 0 - 5 10/03/2015 [facility] URINE AND STOOL UA Leuk Est Negative (10/02/15 11:33 PM) Negative 10/03/2015 [facility] URINE AND STOOL UA Nitrite Negative (10/02/15 11:33 PM) Negative 10/03/2015 [facility] URINE AND STOOL UA Blood Negative (10/02/15 11:33 PM) Negative 10/03/2015 [facility] URINE AND STOOL UA Bili Negative *NA* (10/02/15 11:33 PM) Negative 10/03/2015 [facility] URINE AND STOOL UA pH 8.0 5.0 - 8.0 10/03/2015 [facility] URINE AND STOOL UA Spec Grav 1.002 <=1.030 10/03/2015 [facility] URINE AND STOOL UA Turbidity Clear (10/02/15 11:33 PM) Clear 10/03/2015 [facility] URINE AND STOOL UA Protein Negative mg/dL Negative mg/dL 10/03/2015 [facility] URINE AND STOOL UA Glucose Negative mg/dL Negative mg/dL 10/03/2015 [facility] URINE AND STOOL UA Ketones Negative mg/dL Negative mg/dL 10/03/2015 [facility] CARDIAC ENZYMES Total CK 59 unit/L 12 - 191 10/03/2015 [facility] CARDIAC ENZYMES Troponin-I null 0.00 - 0.40 10/03/2015 [facility] CARDIAC ENZYMES CK MB null 0.5 - 3.6 10/03/2015 [facility] CARDIAC ENZYMES CK MB Index null 0.0 - 2.5 10/03/2015 [facility] CHEM PANEL Lipase Lvl 105 unit/L 73 - 393 10/03/2015 [facility] CHEM PANEL eGFR 66 mL/min/1.73m2 10/03/2015 Result Comment: The eGFR is calculated using the CKD-EPI formula. In most young, healthy individuals the eGFR will be >90 mL/min/1.73m2. The eGFR declines with age. An eGFR of 60-89 may be normal in some populations, particularly the elderly, for whom the CKD-EPI formula has not been extensively validated. Use of the eGFR is not recommended in the following populations: Individuals with unstable creatinine concentrations, including patients and those with serious co-morbid conditions. Patients with extremes in muscle mass or diet. The data above are obtained from the National Kidney Disease Education Program (NKDEP) which additionally recommends that when the eGFR is used in patients with extremes of body mass index for purposes of drug dosing, the eGFR should be multiplied by the estimated BMI. [facility] CHEM PANEL A/G Ratio 1.3 0.7 - 1.6 10/03/2015 [facility] CHEM PANEL Alk Phos 143 unit/L 39 - 136 10/03/2015 [facility] CHEM PANEL Bili Total 0.3 mg/dL 0.2 - 1.3 10/03/2015 [facility] CHEM PANEL AGAP 15.7 meq/L 10.0 - 20.0 10/03/2015 [facility] CHEM PANEL B/C Ratio 19 6 - 25 10/03/2015 [facility] CHEM PANEL Globulin 3.4 g/dL 2.0 - 4.0 10/03/2015 [facility] CHEM PANEL ALT 54 unit/L 0 - 65 10/03/2015 [facility] CHEM PANEL Albumin Lvl 4.3 g/dL 3.5 - 5.0 10/03/2015 [facility] CHEM PANEL AST 32 unit/L 0 - 37 10/03/2015 [facility] CHEM PANEL Sodium Lvl 137 meq/L 135 - 145 10/03/2015 [facility] CHEM PANEL Creatinine Lvl 0.85 mg/dL 0.50 - 1.40 10/03/2015 [facility] CHEM PANEL Potassium Lvl 3.7 meq/L 3.5 - 5.1 10/03/2015 [facility] CHEM PANEL Total Protein 7.7 g/dL 6.4 - 8.4 10/03/2015 [facility] CHEM PANEL Chloride Lvl 98 meq/L 95 - 109 10/03/2015 [facility] CHEM PANEL CO2 27 meq/L 24 - 32 10/03/2015 [facility] CHEM PANEL Calcium Lvl 9.4 mg/dL 8.5 - 10.5 10/03/2015 [facility] CHEM PANEL Glucose Lvl 102 mg/dL 70 - 99 10/03/2015 [facility] CHEM PANEL BUN 16 mg/dL 7 - 22 10/03/2015 [facility] HEMATOLOGY PTT 27.6 s 22.9 - 35.8 10/03/2015 [facility] HEMATOLOGY INR 1.06 0.85 - 1.17 10/03/2015 [facility] HEMATOLOGY PT 14.1 s 12.0 - 14.7 10/03/2015 [facility] HEMATOLOGY RDW 14.1 % 11.5 - 14.5 10/03/2015 [facility] Platelet 266 K/CMM 133 - 450 10/03/2015 [facility] MCHC 33.0 g/dL 32.0 - 36.0 10/03/2015 [facility] MPV 8.0 fL 7.4 - 10.4 10/03/2015 [facility] WBC 14.9 K/CMM 3.7 - 10.4 10/03/2015 [facility] RBC 4.94 M/CMM 4.20 - 5.40 10/03/2015 [facility] Hgb 15.4 g/dL 12.0 - 16.0 10/03/2015 [facility] Hct 46.6 % 36.0 - 48.0 10/03/2015 [facility] MCV 94.4 fL 80.0 - 98.0 10/03/2015 [facility] MCH 31.1 pg 27.0 - 31.0 10/03/2015 [facility] HEMATOLOGY Segs 81.3 % 45.0 - 75.0 10/03/2015 [facility] HEMATOLOGY Lymphocytes 13.4 % 20.0 - 40.0 10/03/2015 [facility] HEMATOLOGY Monocytes 4.6 % 2.0 - 12.0 10/03/2015 [facility] HEMATOLOGY Eosinophils 0.2 % 0.0 - 4.0 10/03/2015 [facility] HEMATOLOGY Basophils 0.5 % 0.0 - 1.0 10/03/2015 [facility] HEMATOLOGY Segs-Bands # 12.2 K/CMM 1.5 - 8.1 10/03/2015 [facility] HEMATOLOGY Basophils # 0.1 K/CMM 0.0 - 0.2 10/03/2015 [facility] HEMATOLOGY Monocytes # 0.7 K/CMM 0.0 - 0.8 10/03/2015 [facility] HEMATOLOGY Lymphocytes # 2.0 K/CMM 1.0 - 5.5 10/03/2015 [facility] Abdomen/Pelvis w IV contrast CT Abdomen/Pelvis w IV contrast CT Patient Name: HERBERT KAY : 1940; Age: 75 years Female MR: [id number] Study: Abdomen/Pelvis w IV contrast CT 10/02/2015 9:20 PM CDT Clinical Indication: Abdominal pain, acute. from home with abd pain x 10 starting today, with blood in stool today. hx of breast CA, with scheduled surgery oct 15. pt states chills, but denies any fever, cp, sob, or headache. COMPARISON: February 2014. June 2006. TECHNIQUE: Helical imaging was performed diaphragm through the symphysis with multiplanar reformations obtained after the administration of IV contrast. FINDINGS: LOWER CHEST: Bibasilar atelectasis. Cardiomegaly. ABDOMEN: No free air. LIVER: Normal. BILIARY TREE: Stable dilation of the biliary tree. GALLBLADDER: Surgically absent. Right. Clip in the mid abdomen. PANCREAS: Normal. SPLEEN: Normal. ADRENALS: Normal. KIDNEYS: No hydronephrosis. PELVIS: No pelvic mass. The urinary bladder is normal. BOWEL: No small bowel obstruction. Diffuse wall thickening involving the entirety of the colon with sparing of the cecum and ascending colon. The appendix is not confidently visualized. PERITONEUM: No free intraperitoneal fluid. RETROPERITONEUM: Atheromatous aortic calcification. There is no pathologic lymphadenopathy. MUSCULOSKELETAL: L5-S1 spondylosis. Schmorl's node formation at L1. IMPRESSION: 1. Changes in the majority of the colon suspicious for colitis, inflammatory bowel disease. 2. Postcholecystectomy with its stable dilation of the biliary tree. 3. The appendix is not confidently visualized. Consider follow-up imaging as indicated. 4. Cardiomegaly. SL: ALDO 10/03/2015 - - Read by: Audie Woodson MD Dictated Date/time: 10/03/15 00:59 Electronically Signed by: Audie Woodson MD 10/03/15 01:08 FINAL REPORT [facility] Chest 1view DX Chest 1view DX EXAM: Chest 1view DX DATE: 10/02/2015 9:20 PM CDT INDICATION: Chest pain COMPARISON: 09/30/2010. IMPRESSION: Stable cardiac silhouette and mediastinum. Atherosclerotic thoracic aorta. No focal consolidation, significant pleural effusion or pneumothorax. Multiple surgical clips are present within the right axilla. SL: [id number] 10/02/2015 - - Read by: Aryan Trujillo MD Dictated Date/time: 10/02/15 21:44 Electronically Signed by: Aryan Trujillo MD 10/02/15 21:45 FINAL REPORT [facility] CHEM PANEL Magnesium Lvl 1.9 mg/dL 1.8 - 2.4 02/16/2014 [facility] ELECTROLYTES Potassium Lvl 3.1 meq/L 3.5 - 5.1 02/16/2014 [facility] ELECTROLYTES Sodium Lvl 145 meq/L 135 - 145 02/16/2014 [facility] ELECTROLYTES Chloride Lvl 111 meq/L 95 - 109 02/16/2014 [facility] ELECTROLYTES eGFR 86 mL/min/1.73m2 02/16/2014 2Result Comment: The eGFR is calculated using the CKD-EPI formula. In most young, healthy individuals the eGFR will be >90 mL/min/1.73m2. The eGFR declines with age. An eGFR of 60-89 may be normal in some populations, particularly the elderly, for whom the CKD-EPI formula has not been extensively validated. Use of the eGFR is not recommended in the following populations: Individuals with unstable creatinine concentrations, including patients and those with serious co-morbid conditions. Patients with extremes in muscle mass or diet. The data above are obtained from the National Kidney Disease Education Program (NKDEP) which additionally recommends that when the eGFR is used in patients with extremes of body mass index for purposes of drug dosing, the eGFR should be multiplied by the estimated BMI. [facility] ELECTROLYTES Glucose Lvl 94 mg/dL 70 - 99 02/16/2014 5Interpretive Data: Adult reference range values reflect the clinical guidelines of the [place] [employer]. [facility] ELECTROLYTES BUN 10 mg/dL 7 - 22 02/16/2014 [facility] ELECTROLYTES ALT 47 unit/L 0 - 65 02/16/2014 [facility] ELECTROLYTES Creatinine Lvl 0.7 mg/dL 0.5 - 1.4 02/16/2014 [facility] ELECTROLYTES Bili Total 0.5 mg/dL 0.2 - 1.3 02/16/2014 [facility] ELECTROLYTES Alk Phos 102 unit/L 39 - 136 02/16/2014 [facility] ELECTROLYTES AST 27 unit/L 0 - 37 02/16/2014 [facility] ELECTROLYTES Albumin Lvl 2.8 g/dL 3.5 - 5.0 02/16/2014 [facility] ELECTROLYTES Total Protein 5.6 g/dL 6.4 - 8.4 02/16/2014 [facility] ELECTROLYTES Calcium Lvl 7.8 mg/dL 8.5 - 10.5 02/16/2014 [facility] ELECTROLYTES CO2 26 meq/L 24 - 32 02/16/2014 [facility] ELECT[facility]YTES A/G Ratio 1.0 0.7 - 1.6 02/16/2014 [facility] ELECTROLYTES Globulin 2.8 g/dL 2.0 - 4.0 02/16/2014 [facility] ELECTROLYTES B/C Ratio 14 6 - 25 02/16/2014 [facility] ELECTROLYTES AGAP 11.1 meq/L 10.0 - 20.0 02/16/2014 [facility] HEMATOLOGY Monocytes 6.0 % 2.0 - 12.0 02/16/2014 [facility] HEMATOLOGY Lymphocytes 35.1 % 20.0 - 40.0 02/16/2014 [facility] HEMATOLOGY Segs 57.5 % 45.0 - 75.0 02/16/2014 [facility] HEMATOLOGY Eosinophils 0.8 % 0.0 - 4.0 02/16/2014 [facility] HEMATOLOGY Monocytes # 0.5 K/CMM 0.0 - 0.8 02/16/2014 [facility] HEMATOLOGY Lymphocytes # 3.1 K/CMM 1.0 - 5.5 02/16/2014 [facility] HEMATOLOGY Eosinophils # 0.1 K/CMM 0.0 - 0.5 02/16/2014 [facility] HEMATOLOGY Segs-Bands # 5.0 K/CMM 1.5 - 8.1 02/16/2014 [facility] HEMATOLOGY Basophils 0.6 % 0.0 - 1.0 02/16/2014 [facility] HEMATOLOGY Basophils # 0.1 K/CMM 0.0 - 0.2 02/16/2014 [facility] HEMATOLOGY WBC 8.7 K/CMM 3.7 - 10.4 02/16/2014 [facility] HEMATOLOGY Hgb 12.3 g/dL 12.0 - 16.0 02/16/2014 [facility] HEMATOLOGY RBC 3.74 M/CMM 4.20 - 5.40 02/16/2014 [facility] HEMATOLOGY Hct 35.7 % 36.0 - 48.0 02/16/2014 [facility] HEMATOLOGY MCV 95.4 fL 80.0 - 98.0 02/16/2014 [facility] MCH 32.8 pg 27.0 - 31.0 02/16/2014 [facility] MCHC 34.4 g/dL 32.0 - 36.0 02/16/2014 [facility] RDW 13.9 % 11.5 - 14.5 02/16/2014 [facility] MPV 7.6 fL 7.4 - 10.4 02/16/2014 [facility] Platelet 286 K/CMM 133 - 450 02/16/2014 [facility] PTT 31.7 s 22.9 - 35.8 02/15/2014 7Interpretive Data: Heparin Therapeutic Range: 57 - 92 Seconds [facility] CHEM PANEL eGFR 86 mL/min/1.73m2 02/15/2014 3Result Comment: The eGFR is calculated using the CKD-EPI formula. In most young, healthy individuals the eGFR will be >90 mL/min/1.73m2. The eGFR declines with age. An eGFR of 60-89 may be normal in some populations, particularly the elderly, for whom the CKD-EPI formula has not been extensively validated. Use of the eGFR is not recommended in the following populations: Individuals with unstable creatinine concentrations, including patients and those with serious co-morbid conditions. Patients with extremes in muscle mass or diet. The data above are obtained from the National Kidney Disease Education Program (NKDEP) which additionally recommends that when the eGFR is used in patients with extremes of body mass index for purposes of drug dosing, the eGFR should be multiplied by the estimated BMI. [facility] CHEM PANEL Creatinine Lvl 0.7 mg/dL 0.5 - 1.4 02/15/2014 [facility] Platelet 300 K/CMM 133 - 450 02/15/2014 [facility] TOXICOLOGY Phenytoin Total 3.5 ug/ml 10.0 - 20.0 02/15/2014 [facility] URINE AND STOOL UA Urobilinogen <=1.0 mg/dL 0.1 - 1.0 02/15/2014 [facility] URINE AND STOOL UA Color Ltyellow 02/15/2014 [facility] URINE AND STOOL UA Turbidity Clear (02/14/14 11:47 PM) Clear 02/15/2014 [facility] URINE AND STOOL UA Sq Epi Occasional /LPF Few /LPF 02/15/2014 [facility] URINE AND STOOL UA Nitrite Negative (02/14/14 11:47 PM) Negative 02/15/2014 [facility] URINE AND STOOL UA Leuk Est Trace *ABN* (02/14/14 11:47 PM) Negative 02/15/2014 [facility] URINE AND STOOL UA Blood Negative (02/14/14 11:47 PM) Negative 02/15/2014 [facility] URINE AND STOOL UA Bili Negative *NA* (02/14/14 11:47 PM) Negative 02/15/2014 [facility] URINE AND STOOL UA Glucose Negative mg/dL Negative mg/dL 02/15/2014 [facility] URINE AND STOOL UA Ketones 20 mg/dL Negative mg/dL 02/15/2014 [facility] URINE AND STOOL UA pH 8.0 5.0 - 8.0 02/15/2014 [facility] URINE AND STOOL UA Protein Negative mg/dL Negative mg/dL 02/15/2014 [facility] URINE AND STOOL UA Spec Grav 1.013 <=1.030 02/15/2014 [facility] URINE AND STOOL UA Bacteria Occasional /HPF None Seen /HPF 02/15/2014 [facility] URINE AND STOOL UA Mucus Few /LPF None Seen /LPF 02/15/2014 [facility] URINE AND STOOL UA WBC 9 /HPF 0 - 5 02/15/2014 [facility] URINE AND STOOL UA RBC 4 /HPF 0 - 2 02/15/2014 [facility] CARDIAC ENZYMES Troponin-I null 0.00 - 0.40 02/15/2014 [facility] CARDIAC ENZYMES CK MB null 0.5 - 3.6 02/15/2014 [facility] CHEM PANEL Lipase Lvl 56 unit/L 73 - 393 02/15/2014 [facility] CHEM PANEL Amylase Lvl 46 unit/L 25 - 115 02/15/2014 [facility] CHEM PANEL A/G Ratio 0.9 0.7 - 1.6 02/15/2014 [facility] CHEM PANEL AGAP 13.0 meq/L 10.0 - 20.0 02/15/2014 [facility] CHEM PANEL Globulin 3.6 g/dL 2.0 - 4.0 02/15/2014 [facility] CHEM PANEL B/C Ratio 17 6 - 25 02/15/2014 [facility] CHEM PANEL eGFR 90 mL/min/1.73m2 02/15/2014 4Result Comment: The eGFR is calculated using the CKD-EPI formula. In most young, healthy individuals the eGFR will be >90 mL/min/1.73m2. The eGFR declines with age. An eGFR of 60-89 may be normal in some populations, particularly the elderly, for whom the CKD-EPI formula has not been extensively validated. Use of the eGFR is not recommended in the following populations: Individuals with unstable creatinine concentrations, including patients and those with serious co-morbid conditions. Patients with extremes in muscle mass or diet. The data above are obtained from the National Kidney Disease Education Program (NKDEP) which additionally recommends that when the eGFR is used in patients with extremes of body mass index for purposes of drug dosing, the eGFR should be multiplied by the estimated BMI. [facility] CHEM PANEL ALT 45 unit/L 0 - 65 02/15/2014 [facility] CHEM PANEL Alk Phos 140 unit/L 39 - 136 02/15/2014 [facility] CHEM PANEL Albumin Lvl 3.4 g/dL 3.5 - 5.0 02/15/2014 [facility] CHEM PANEL Bili Total 0.4 mg/dL 0.2 - 1.3 02/15/2014 [facility] CHEM PANEL AST 25 unit/L 0 - 37 02/15/2014 [facility] CHEM PANEL Total Protein 7.0 g/dL 6.4 - 8.4 02/15/2014 [facility] CHEM PANEL BUN 10 mg/dL 7 - 22 02/15/2014 [facility] CHEM PANEL CO2 24 meq/L 24 - 32 02/15/2014 [facility] CHEM PANEL Creatinine Lvl 0.6 mg/dL 0.5 - 1.4 02/15/2014 [facility] CHEM PANEL Glucose Lvl 116 mg/dL 70 - 99 02/15/2014 6Interpretive Data: Adult reference range values reflect the clinical guidelines of the [place] [employer]. [facility] CHEM PANEL Sodium Lvl 137 meq/L 135 - 145 02/15/2014 [facility] CHEM PANEL Potassium Lvl 3.0 meq/L 3.5 - 5.1 02/15/2014 1Result Comment: Critical Result(s) called to prasad bansal at 02/14/2014 23:02 byemw. Read back OK. [facility] CHEM PANEL Chloride Lvl 103 meq/L 95 - 109 02/15/2014 [facility] CHEM PANEL Calcium Lvl 8.7 mg/dL 8.5 - 10.5 02/15/2014 [facility] HEMATOLOGY Monocytes # 0.5 K/CMM 0.0 - 0.8 02/15/2014 [facility] Monocytes 4.7 % 2.0 - 12.0 02/15/2014 [facility] Lymphocytes 27.7 % 20.0 - 40.0 02/15/2014 [facility] Segs-Bands # 6.9 K/CMM 1.5 - 8.1 02/15/2014 [facility] Basophils 0.4 % 0.0 - 1.0 02/15/2014 [facility] Eosinophils 0.1 % 0.0 - 4.0 02/15/2014 [facility] Lymphocytes # 2.8 K/CMM 1.0 - 5.5 02/15/2014 [facility] Segs 67.1 % 45.0 - 75.0 02/15/2014 [facility] MPV 7.3 fL 7.4 - 10.4 02/15/2014 [facility] Platelet 330 K/CMM 133 - 450 02/15/2014 [facility] RDW 13.4 % 11.5 - 14.5 02/15/2014 [facility] MCHC 34.4 g/dL 32.0 - 36.0 02/15/2014 [facility] MCH 32.6 pg 27.0 - 31.0 02/15/2014 [facility] MCV 94.7 fL 80.0 - 98.0 02/15/2014 [facility] Hct 40.9 % 36.0 - 48.0 02/15/2014 [facility] Hgb 14.1 g/dL 12.0 - 16.0 02/15/2014 [facility] RBC 4.32 M/CMM 4.20 - 5.40 02/15/2014 [facility] WBC 10.2 K/CMM 3.7 - 10.4 02/15/2014 [facility] Abdomen/Pelvis w IV contrast CT Abdomen/Pelvis w IV contrast CT I. CT SCAN of the ABDOMEN with CONTRAST II. CT SCAN of the PELVIS with CONTRAST HISTORY: Abdominal pain. Comparison is made to 06/26/2006. I. CT SCAN of the ABDOMEN with CONTRAST TECHNIQUE: Helical CT images were obtained from the domes the diaphragms to the iliac crests following the administration of oral and nonionic iodinated intravenous contrast. II. CT SCAN of the PELVIS with CONTRAST TECHNIQUE: Helical CT images were obtained from the iliac crests to the pubic symphysis following the administration of oral and nonionic iodinated intravenous contrast. Sagittal and coronal reconstructions were provided. FINDINGS: 1. Questionable right-sided colitis. On the prior CT scan from 2006, there is suggestive mild thickening of the terminal ileum and cecum. On today's study, there appears to be focal thickening of the cecum and ascending colon although evaluation is difficult due to lack of distention. Also, there is minimal hazy density adjacent the right colon which may represent inflammation. Overall, there may be colitis involving the cecum and proximal ascending colon. Please correlate with clinical information. If indicated, further evaluation with colonoscopy would be helpful. 2. The remainder of the gastrointestinal structures are unremarkable. No evidence of obstruction or ileus. The appendix is not visualized. However, there are no findings to suggest appendicitis. 3. There is no free intraperitoneal gas, intra-abdominal abscess, or ascites. 4. Status post cholecystectomy. There is marked dilatation the common bile duct which measures up to 15 mm in maximal diameter. There is also mild intrahepatic ductal dilatation. The appearance is unchanged from June 2006 and therefore may represent postcholecystectomy changes although these changes are greater than normally seen. Please correlate with clinical and laboratory information. 5. No mass or adenopathy seen within the abdomen or pelvis. 6. Mild diffuse fatty change involving the liver. The liver is otherwise unremarkable. 7. The spleen, pancreas, adrenal glands, and kidneys are normal in appearance. The kidneys show good, symmetrical excretion without hydronephrosis. 8. Mild atherosclerotic change involving the abdominal aorta. There is no aneurysm. 9. Very small umbilical hernia. There is no herniation of bowel. 10. The visualized lung bases are clear. There is mild scarring in the right middle lobe. There are no pleural effusions. 11. Borderline cardiomegaly. There is no pericardial effusion. 12. Mild compression deformity involving the superior endplate of L1. This is of indeterminate age but was not present on 06/26/2006. The remainder of the vertebral bodies in the lumbar spine are normal in height. 13. Degenerative disease at L5-S1 with disc space narrowing and a vacuum disc phenomena. There are very mild degenerative changes elsewhere in the lumbar spine. Coding: Abdomen/Pelvis w contrast CT SL: 12 Jhon Potter M.D. 02/15/2014 - - Read by: Jhon Potter MD Dictated Date/time: 02/15/14 02:42 Electronically Signed by: Jhon Potter MD 02/15/14 02:49 FINAL REPORT [facility] Vital Signs Vital Sign Value Date Comments Source Weight 58.182 04/08/2018 [facility] BMI Calculated 23.46 04/08/2018 [facility] Height 157.48 cm 04/08/2018 [facility] Respitory Rate 16 04/08/2018 [facility] Temperature Oral (F) 97.3 F 04/08/2018 [facility] Heart Rate 77 04/08/2018 [facility] Systolic (mm Hg) 126 04/08/2018 [facility] Diastolic (mm Hg) 77 04/08/2018 [facility] Weight 131 12/23/2017 [facility] Height 60 12/23/2017 [facility] Temperature Oral (F) 99.2 F 12/23/2017 [facility] Heart Rate 80 12/23/2017 [facility] Diastolic (mm Hg) 86 12/23/2017 [facility] Systolic (mm Hg) 130 12/23/2017 [facility] Weight 131 12/13/2017 [facility] Height 60 12/13/2017 [facility] Temperature Oral (F) 98.2 F 12/13/2017 [facility] Heart Rate 72 12/13/2017 [facility] Diastolic (mm Hg) 60 12/13/2017 [facility] Systolic (mm Hg) 108 12/13/2017 [facility] Systolic (mm Hg) 130 10/18/2017 [facility] Diastolic (mm Hg) 77 10/18/2017 [facility] Temperature Oral (F) 97.2 F 10/18/2017 [facility] Respitory Rate 14 10/18/2017 [facility] Heart Rate 67 10/18/2017 [facility] Height 154.94 cm 10/18/2017 [facility] BMI Calculated 24.61 10/18/2017 [facility] Weight 59.091 10/18/2017 [facility] Height 157.48 cm 09/13/2017 [facility] Weight 60.142 09/13/2017 [facility] BMI Calculated 24.25 09/13/2017 [facility] Systolic (mm Hg) 135 09/13/2017 [facility] Diastolic (mm Hg) 71 09/13/2017 [facility] Respitory Rate 16 09/13/2017 [facility] Heart Rate 71 09/13/2017 [facility] Temperature Oral (F) 97.3 F 09/13/2017 [facility] Systolic (mm Hg) 135 05/14/2017 [facility] Diastolic (mm Hg) 67 05/14/2017 [facility] BMI Calculated 24.01 05/14/2017 [facility] Weight 59.545 05/14/2017 [facility] Height 157.48 cm 05/14/2017 [facility] Respitory Rate 16 05/14/2017 [facility] Heart Rate 66 05/14/2017 [facility] Temperature Oral (F) 97.3 F 05/14/2017 [facility] Systolic (mm Hg) 152 05/14/2017 [facility] Diastolic (mm Hg) 75 05/14/2017 [facility] Systolic (mm Hg) 121 04/01/2016 [facility] Diastolic (mm Hg) 62 04/01/2016 [facility] Respitory Rate 14 04/01/2016 [facility] Systolic (mm Hg) 131 04/01/2016 [facility] Diastolic (mm Hg) 62 04/01/2016 [facility] Respitory Rate 14 04/01/2016 [facility] Systolic (mm Hg) 128 04/01/2016 [facility] Diastolic (mm Hg) 59 04/01/2016 [facility] Respitory Rate 16 04/01/2016 [facility] Heart Rate 68 04/01/2016 [facility] Temperature Oral (F) 97.8 F 03/31/2016 [facility] Heart Rate 63 03/31/2016 [facility] Weight 61.989 03/31/2016 [facility] BMI Calculated 25.82 03/31/2016 [facility] Height 154.94 cm 03/31/2016 [facility] Systolic (mm Hg) 104 02/03/2016 [facility] Diastolic (mm Hg) 53 02/03/2016 [facility] Respitory Rate 40 02/03/2016 [facility] Systolic (mm Hg) 117 02/03/2016 [facility] Diastolic (mm Hg) 55 02/03/2016 [facility] Respitory Rate 12 02/03/2016 [facility] Systolic (mm Hg) 109 02/03/2016 [facility] Diastolic (mm Hg) 49 02/03/2016 [facility] Respitory Rate 12 02/03/2016 [facility] Heart Rate 65 01/29/2016 [facility] Temperature Oral (F) 98 F 01/29/2016 [facility] Weight 62.182 01/29/2016 [facility] BMI Calculated 25.9 01/29/2016 [facility] Height 154.94 cm 01/29/2016 [facility] Systolic (mm Hg) 123 11/18/2015 [facility] Diastolic (mm Hg) 62 11/18/2015 [facility] Systolic (mm Hg) 126 11/18/2015 [facility] Diastolic (mm Hg) 70 11/18/2015 [facility] Systolic (mm Hg) 137 11/18/2015 [facility] Diastolic (mm Hg) 63 11/18/2015 [facility] Respitory Rate 12 11/18/2015 [facility] Respitory Rate 9 11/18/2015 [facility] Respitory Rate 18 11/18/2015 [facility] Temperature Oral (F) 97.6 F 11/18/2015 [facility] Heart Rate 65 11/18/2015 [facility] BMI Calculated 26.03 11/18/2015 [facility] Height 154.94 cm 11/18/2015 [facility] Weight 62.5 11/18/2015 [facility] Systolic (mm Hg) 130 10/16/2015 [facility] Diastolic (mm Hg) 61 10/16/2015 [facility] Systolic (mm Hg) 154 10/16/2015 [facility] Diastolic (mm Hg) 78 10/16/2015 [facility] Systolic (mm Hg) 142 10/16/2015 [facility] Diastolic (mm Hg) 61 10/16/2015 [facility] Respitory Rate 23 10/16/2015 [facility] Respitory Rate 14 10/16/2015 [facility] Respitory Rate 14 10/16/2015 [facility] Temperature Oral (F) 98 F 10/09/2015 [facility] Heart Rate 68 10/09/2015 [facility] Weight 61.364 10/09/2015 [facility] BMI Calculated 25.15 10/09/2015 [facility] Height 156.21 cm 10/09/2015 [facility] Respitory Rate 16 10/04/2015 [facility] Heart Rate 64 10/04/2015 [facility] Temperature Oral (F) 97.5 F 10/04/2015 [facility] Systolic (mm Hg) 129 10/04/2015 [facility] Diastolic (mm Hg) 71 10/04/2015 [facility] Temperature Oral (F) 97.5 F 10/04/2015 [facility] Heart Rate 69 10/04/2015 [facility] Systolic (mm Hg) 143 10/04/2015 [facility] Diastolic (mm Hg) 77 10/04/2015 [facility] Respitory Rate 18 10/04/2015 [facility] Temperature Oral (F) 98.1 F 10/04/2015 [facility] Respitory Rate 18 10/04/2015 [facility] Systolic (mm Hg) 108 10/04/2015 [facility] Diastolic (mm Hg) 58 10/04/2015 [facility] Heart Rate 63 10/04/2015 [facility] Weight 65.455 10/03/2015 [facility] BMI Calculated 24.01 10/03/2015 [facility] Height 165.1 cm 10/03/2015 [facility] Height 154.94 cm 10/03/2015 [facility] BMI Calculated 25.56 10/03/2015 [facility] Weight 61.364 10/03/2015 [facility] Diastolic (mm Hg) 84 02/16/2014 [facility] Temperature Oral (F) 98.3 F 02/16/2014 [facility] Respitory Rate 18 02/16/2014 [facility] Heart Rate 61 02/16/2014 [facility] Systolic (mm Hg) 166 02/16/2014 [facility] Temperature Oral (F) 98.4 F 02/16/2014 [facility] Diastolic (mm Hg) 80 02/16/2014 [facility] Systolic (mm Hg) 157 02/16/2014 [facility] Respitory Rate 18 02/16/2014 [facility] Heart Rate 60 02/16/2014 [facility] Heart Rate 57 02/16/2014 [facility] Respitory Rate 18 02/16/2014 [facility] Diastolic (mm Hg) 75 02/16/2014 [facility] Temperature Oral (F) 98.3 F 02/16/2014 [facility] Systolic (mm Hg) 132 02/16/2014 [facility] Height 165.1 cm 02/15/2014 [facility] BMI Calculated 22.51 02/15/2014 [facility] Weight 61.364 02/15/2014 [facility] Encounters Location Location Details Encounter Type Encounter Number Reason For Visit Attending Provider ADM Date DC Date Status Source [facility] OBS Observation Patient [id number] London Lynch 02/15/2014 02/16/2014 [facility] Outpatient [id number] JELENA ESPINO 09/19/2014 Active [facility] Outpatient [id number] JELENA ESPINO 11/16/2014 Active [facility] Outpatient [id number] NURSE VISIT 02/11/2015 Active [facility] Outpatient [id number] JUAN SÁNCHEZ 03/14/2015 Active [facility] Outpatient [id number] JELENA ESPINO 05/23/2015 Active [facility] Outpatient [id number] JELENA ESPINO 06/07/2015 Active [facility] Outpatient [id number] JELENA ESPINO 07/12/2015 Active [facility] Outpatient [id number] JELENA ESPINO 08/30/2015 Active [facility] Inpatient [id number] Pepper Sam 10/03/2015 10/04/2015 [facility] Day Surgery [id number] Abhijit Ballesteros 10/16/2015 10/16/2015 [facility] Day Surgery [id number] Abhijit Krishnamurthynandez 11/18/2015 11/18/2015 [facility] Outpatient [id number] JELENA ESPINO 01/22/2016 Active [facility] Unknown [id number] 01/28/2016 01/28/2016 [facility] Day Surgery [id number] Abhijit Ballesteros 02/03/2016 02/03/2016 [facility] Day Surgery [id number] Sidra Fox 04/01/2016 04/01/2016 [facility] Outpatient [id number] JELENA ESPINO 04/23/2016 Active [facility] Outpatient [id number] JELENA ESPINO 08/19/2016 Active [facility] Outpatient [id number] JELENA ESPINO 12/18/2016 Active [facility] Outpatient [id number] JELENA ESPINO 05/14/2017 Active [facility] Outpatient [id number] Jelena Espino 05/14/2017 05/15/2017 [facility] Outpatient [id number] JELENA ESPINO 09/13/2017 Active [facility] Outpatient [id number] Jelena Espino 09/13/2017 09/14/2017 [facility] Outpatient [id number] LUIS LEMOS 10/18/2017 Active [facility] Outpatient [id number] Jelena Espino 10/18/2017 10/19/2017 [facility] Phone Message [id number] 10/18/2017 10/20/2017 [facility] Outpatient [id number] NURSE VISIT 12/08/2017 Active [facility] [id number] SHANEL CARDENAS 03/14/2018 Active [facility] [id number] JELENA ESPINO 04/08/2018 Active [facility] [id number] Jelena Espino 04/08/2018 04/09/2018 [facility] Phone Message [id number] 05/24/2018 05/26/2018 [facility] Phone Message [id number] 06/03/2018 06/05/2018 [facility] Procedures Procedure Code Date Perfomer Comments Source Mammogram<sup>1, 2</sup> [id number] 03/31/2018 Lymph node 3 cm needs USG biopsy.Left diagnostic mammogram: negative. aanual screening in a year Dr Trujillo [facility] Examination of eye<sup>3</sup> [id number] 01/14/2018 Dr Fuad Solano [facility] Bone density scan<sup>4</sup> [id number] 10/20/2017 Osteoporosis [facility] Examination of eye<sup>1</sup> [id number] 07/07/2017 Dr Fuad Solano [facility] Examination of eye<sup>1</sup> [id number] 03/10/2017 Dr Fuad Solano [facility] Mammogram<sup>2</sup> [id number] 02/10/2017 Left diagnostic mammogram: negative. aanual screening in a year Dr Trujillo [facility] Mastectomy of right breast<sup>3</sup> [id number] 01/07/2016 10/16/2015 [facility] Mastectomy of right breast<sup>5</sup> [id number] 01/07/2016 10/16/2015 [facility] Breast lumpectomy [id number] 11/07/2015 [facility] Biopsy of breast<sup>4</sup> [id number] 09/05/2015 Right breast invasive lobular carcinoma [facility] Biopsy of breast<sup>6</sup> [id number] 09/05/2015 Right breast invasive lobular carcinoma [facility] Biopsy of breast<sup>1</sup> [id number] 09/05/2015 Right breast invasive lobular carcinoma [facility] Mammogram<sup>2</sup> [id number] 08/26/2015 Right breast biopsy Invasive lobular carcinoma [facility] Bone density scan [id number] 07/23/2015 [facility] Bone density scan [id number] 07/23/2015 [facility] Eye examination<sup>3</sup> [id number] 2015 Dr Fuad Solano dry eyes [facility] Echocardiogram<sup>5</sup> [id number] 12/28/2014 EF 68% Dr [facility] Echocardiogram<sup>7</sup> [id number] 12/28/2014 EF 68% Dr [facility] Echocardiogram<sup>4</sup> [id number] 12/28/2014 EF 68% Dr Blackmon [facility]<sup>6</sup> [id number] 11/21/2014 Gastritis (Dr Rondon) [facility] Endoscopy<sup>8</sup> [id number] 11/21/2014 Gastritis (Dr Rondon[facility] Endoscopy<sup>5</sup> [id number] 11/21/2014 Gastritis (Dr Rondon) [facility] Colonoscopy<sup>7</sup> [id number] 12/07/[address] [facility] Colonoscopy<sup>9</sup> [id number] 12/07/[address] [facility] Colonoscopy<sup>6</sup> [id number] 12/07/[address] Rondon [facility] Breast lumpectomy [id number] 03/08/1996 [facility] Mastectomy of right breast [id number] 03/08/1996 [facility] Appendectomy [id number] [facility] CEIOL - Cataract extraction and insertion of intraocular lens [id number] [facility] Cholecystectomy [id number] [facility] Hysterectomy [id number] [facility] Lithotripsy of gall bladder using fluoroscopic guidance [id number] [facility] Appendectomy [id number] [facility] CEIOL - Cataract extraction and insertion of intraocular lens [id number] [facility] Cholecystectomy [id number] [facility] Hysterectomy [id number] [facility] Lithotripsy of gall bladder using fluoroscopic guidance [id number] [facility] Mastectomy of right breast<sup>7</sup> [id number] 10/16/2015 [facility] Procedure on thyroid gland [id number] [facility]
--- OUTSIDE RECORDS SUMMARY | 2018-06-20 07:02 | XMS REPORT | Summary of Care ---
Author Author [facility] Organization [facility] Address Unknown Phone Unavailable Encounter HQ Ryan(FIN) [id number] Date(s): 10/18/17 - 10/18/17 [facility] [address], [address] [place], [place] [address]- [phone] Discharge Disposition: Home or Self Care Attending Physician: Melissa Griffin MD Vital Signs Most recent to 1 oldest [Reference Range]: Height 154.94 cm (10/18/17 11:10 AM) Temperature Oral 97.2 DegF [96.4-99.1 DegF] (10/18/17 11:10 AM) Blood Pressure 130/77 mmHg [90-140/60-90 mmHg] (10/18/17 11:10 AM) Respiratory Rate 14 BRMIN [14-20 BRMIN] (10/18/17 11:10 AM) Peripheral Pulse 67 bpm Rate [60-100 bpm] (10/18/17 11:10 AM) Weight 59.091 kg (10/18/17 11:10 AM) Body Mass Index 24.61 m2 (10/18/17 11:10 AM) Problem List Condition Effective Dates Status [...] disorder(Confirmed)6 Osteoarthritis7 06/06/13 Active Osteoporosis(Confirm Active ed) 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 Originally documented as VERSED. Medications No Known Medications Results No data available for this section [...] nov 2013 4Result Comment: fluzone high dose [[id number]]. Migrated from OBS ; Data migrated from [employer] on 04/09/2015. 5Result Comment: fluzone (>3 yrs.) [[id number]]. Migrated from OBS ; Data migrated from [employer] on 04/09/2015. 6Admin Note: had at Drs office 2 years ago 7Result Comment: done. Migrated from OBS ; Data migrated from [employer] on 04/09/2015. 8Result Comment: pneumovax. Migrated from OBS ; Data migrated from [employer] on 04/09/2015. Procedures Procedure Date Related Diagnosis [...] Reg Smoking Cessation Counseling No entered on: 04/08/18 Assessment and Plan No data available for this section
--- OUTSIDE RECORDS SUMMARY | 2018-06-20 07:02 | XMS REPORT | Summary of Care ---
Author Author [facility] Organization [facility] Address Unknown Phone Unavailable Encounter HQ Rommelr_lin(FIN) [id number] Date(s): 06/03/18 - 06/04/18 [facility] [address] [address]- Vital Signs No data available for this section Problem List Condition Effective Dates Status Health [...] 07/03/14. Originally documented as VERSED. Medications No data available for this section Results No data available for this section [...] nov 2013 4Result Comment: fluzone high dose [[id number]]. Migrated from OBS ; Data migrated from [employer] on 04/09/2015. 5Result Comment: fluzone (>3 yrs.) [[id number]]. Migrated from OBS ; Data migrated from [...] year Dr Trujillo 3Dr Fuad Solano 4Osteoporosis 508/12/2015 6Right breast invasive lobular carcinoma 7EF 68% [...]
--- OUTSIDE RECORDS SUMMARY | 2018-06-20 07:02 | XMS REPORT | Summary of Care ---
Author Author [facility] Organization [facility] Address Unknown Phone Unavailable Encounter HQ Ryan(FIN) [id number] Date(s): 09/13/17 - 09/13/17 [facility] [address], [address] [place] [address]- [phone] Discharge Disposition: Home or Self Care Attending Physician: Melissa Griffin MD Vital Signs Most recent to 1 oldest [Reference Range]: Height 157.48 cm (09/13/17 1:08 PM) Temperature Oral 97.3 DegF [96.4-99.1 DegF] (09/13/17 1:08 PM) Blood Pressure 135/71 mmHg [90-140/60-90 mmHg] (09/13/17 1:08 PM) Respiratory Rate 16 BRMIN [14-20 BRMIN] (09/13/17 1:08 PM) Peripheral Pulse 71 bpm Rate [60-100 bpm] (09/13/17 1:08 PM) Weight 60.142 kg (09/13/17 1:08 PM) Body Mass Index 24.25 m2 (09/13/17 1:08 PM) Problem List Condition Effective Dates Status Health [...] D 08/09/13 Active deficiency9 1Data migrated from [facility] on 08/04/14. 2hospitalized 10/03/2015 and received antibiotics [...] 07/03/14. Originally documented as VERSED. Medications levothyroxine 100 mcg (0.1 mg) oral tablet 100 microgram=1 tab, PO, Daily, # 30 tab, 1 Refill(s), [id number], Dose increased from 88 to 100 mcg Start Date: 09/13/17 Status: Ordered meloxicam 7.5 mg oral tablet 7.5 mg=1 tab, PO, BID, as needed for pain, # 40 tab, 0 Refill(s), Pharmacy: [id number] Start Date: 09/13/17 Status: Ordered Results No data available for [...] nov 2013 3Result Comment: fluzone high dose [[id number]]. Migrated from OBS ; Data migrated from [employer] on 04/09/2015. 4Result Comment: fluzone (>3 yrs.) [[id number]]. Migrated from OBS ; Data migrated from [employer] on 04/09/2015. 5Admin Note: had at Drs office 2 years ago 6Result Comment: done. Migrated from OBS ; Data migrated from [employer] on 04/09/2015. 7Result Comment: pneumovax. Migrated from OBS ; Data migrated from [employer] on 04/09/2015. Procedures Procedure Date Related Diagnosis [...] Reg Smoking Cessation Counseling No entered on: 09/13/17 Assessment and Plan No data available for this section
--- OUTSIDE RECORDS SUMMARY | 2018-06-20 07:02 | XMS REPORT | Summary of Care ---
Author Author [facility] Organization [facility] Address Unknown Phone Unavailable Encounter MATT Davis(FIN) [id number] Date(s): 05/14/17 - 05/14/17 [facility] [address], [address] [place] [address]- [phone] Discharge Disposition: Home or Self Care Attending [...] Daily, # 90 tab, 0 Refill(s), Pharmacy: [id number], Dose decrease from 100 to 88 mcg Start Date: 02/19/17 Stop Date: 03/09/17 Status: Completed Results No data available for this section [...] nov 2013 3Result Comment: fluzone high dose [[id number]]. Migrated from OBS ; Data migrated from [employer] on 04/09/2015. 4Result Comment: fluzone (>3 yrs.) [[id number]]. Migrated from OBS ; Data migrated from [employer] on 04/09/2015. 5Admin Note: had at Drs office 2 years ago 6Result Comment: done. Migrated from OBS ; Data migrated from [employer] on 04/09/2015. 7Result Comment: pneumovax. Migrated from OBS ; Data migrated from [employer] on 04/09/2015. Procedures Procedure Date Related Diagnosis Body Site Status Examination of eye1 03/10/17 Completed Mammogram2 02/10/17 Completed Mastectomy of right [...]
--- OUTSIDE RECORDS SUMMARY | 2018-06-20 07:02 | XMS REPORT | Summary of Care ---
Author Author [facility] Organization [facility] Address Unknown Phone Unavailable Encounter HQ Jorgentr_lin(FIN) [id number] Date(s): 10/18/17 - 10/19/17 [facility] [address], [address] [place], [place] [address]- [phone] Vital Signs No data available for this [...] nov 2013 4Result Comment: fluzone high dose [[id number]]. Migrated from OBS ; Data migrated from [employer] on 04/09/2015. 5Result Comment: fluzone (>3 yrs.) [[id number]]. Migrated from OBS ; Data migrated from [...]
--- OUTSIDE RECORDS SUMMARY | 2018-06-20 07:03 | XMS REPORT | Summary of Care ---
Author Author [facility] Organization [facility] Address Unknown Phone Unavailable Encounter MATT Davis(SKYLA) [id number] Date(s): 11/18/15 - 11/18/15 [facility] [address] [place] [address]- Discharge Disposition: Home or Self Care Attending Physician: Abhijit Ballesteros MD Referring Physician: Abhijit Ballesteros MD Vital Signs 1 2 3 Most recent to oldest [Reference Range]: 154.94 cm (11/18/15 8:08 AM) Height 97.6 DegF (11/18/15 8:19 AM) Temperature Oral [96.4-99.1 DegF] 123/62 mmHg (11/18/15 2:30 PM) 126/70 mmHg (11/18/15 2:00 PM) 137/63 mmHg (11/18/15 1:30 PM) Blood Pressure [90-140/60-90 mmHg] 12 BRMIN *LOW* (11/18/15 1:00 PM) 9 BRMIN *LOW* (11/18/15 12:45 PM) 18 BRMIN (11/18/15 12:30 PM) Respiratory Rate [14-20 BRMIN] 65 bpm (11/18/15 8:19 AM) Peripheral Pulse Rate [60-100 bpm] 62.5 kg (11/18/15 8:08 AM) Weight 26.03 m2 (11/18/15 8:08 AM) Body Mass Index Problem List Condition Effective Dates Status Health Status Informant Anxiety(Confirmed) Active Breast Active cancer(Confirmed)1 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 Colitis(Confirmed)3 Resolved Conjunctivitis4 01/02/13 Resolved Dizziness5 10/02/14 Active Gastritis(Confirmed) Active GERD - Active Gastro-esophageal reflux disease(Confirmed) H/O squamous cell Resolved carcinoma of skin(Confirmed) Hypertriglyceridemia Active (Confirmed) Hypothyroid(Confirme Active d) Hypothyroidism6 Active Impaired fasting Active glycaemia7 Irritable bowel Active syndrome8 Mixed anxiety and 12/08/12 Active depressive disorder9 [id number] 06/06/13 Active Osteoporosis(Confirm Active ed) Osteoporosis(Confirm Active ed) Overactive Active bladder(Confirmed) Recurrent cyst of Active breast(Confirmed)11 Seizure(Confirmed) Active Seizure(Confirmed) Resolved Seizure [id number] Active Cyauotrx54 06/06/13 Active Vitamin D 08/09/13 Active [id number] 1previous right breast cancer 2Data migrated from [employer] on 08/04/14. 3hospitalized 10/03/2015 and received antibiotics 4Data migrated from [employer] on 09/22/14. 5Data migrated from [employer] on 10/27/14. 6Data migrated from [employer] on 08/04/14. 7Data migrated from [employer] on 08/04/14. 8Data migrated from [employer] on 08/04/14. 9Data migrated from [employer] on 08/04/14. 10Data migrated from [employer] on 08/04/14. 11right breast 12Data migrated from [employer] on 08/04/14. 13Data migrated from [employer] on 08/04/14. 14Data migrated from [employer] on 08/04/14. Allergies, Adverse Reactions, Alerts Substance Reaction Severity Status midazolam1 Active penicillin Active penicillins2 Active Versed Active 1Data migrated from [employer] on 07/03/14. Originally documented as VERSED. 2Data migrated from [employer] on 10/04/14. Originally documented as PENICILLIN. Medications acetaminophen (ANES) Route: IV, Drug form: INJ, ONCE, Stop date: 11/18/15 11:43:00 CDT Start Date: 11/18/15 Stop Date: 11/18/15 Status: Completed albuterol-ipratropium 2.5-0.5 mg inhalation solution 3 mL, Route: NEB, Dosing Weight 62.5, kg, ONCE, STAT, Start date: 11/18/15 9:34: 00 CDT, Stop date: 11/18/15 9:34:00 CDT Start Date: 11/18/15 Stop Date: 11/18/15 Status: Discontinued ANES acetaminophen 1,000 mg, Route: PO, Drug form: TAB, ONCE, Dosing Weight 62.5, kg, PRN Pain Scor e 1-3, Start date: 11/18/15 12:01:00 CDT, Duration: 1 doses or times, Stop date: Limited # of times Start Date: 11/18/15 Stop Date: 11/18/15 Status: Discontinued ANES diphenhydrAMINE 12.5 mg, Route: IVP, Drug form: INJ, Q6H, Dosing Weight 62.5, kg, PRN Itching, S tart date: 11/18/15 12:01:00 CDT, Duration: 30 day, Stop date: 12/18/15 12:00:00 CDT Start Date: 11/18/15 Stop Date: 11/18/15 Status: Discontinued ANES esmolol 10 mg, Route: IVP, Q5Min, Dosing Weight 62.5, kg, PRN Other -See Comment, Start date: 11/18/15 12:01:00 CDT, Duration: 5 doses or times, Stop date: Limited # of times Start Date: 11/18/15 Stop Date: 11/18/15 Status: Discontinued ANES fentaNYL 25 microgram, Route: IVP, Q5Min, Dosing Weight 61.364, kg, PRN Pain Score 4-6, S tart date: 11/18/15 12:01:00 CDT, Duration: 4 doses or times, Stop date: Limited # of times Start Date: 11/18/15 Stop Date: 11/18/15 Status: Discontinued ANES fentaNYL 50 microgram, Route: IVP, Q5Min, Dosing Weight 61.364, kg, PRN Pain Score 7-10, Start date: 11/18/15 12:01:00 CDT, Duration: 2 doses or times, Stop date: Limite d # of times Start Date: 11/18/15 Stop Date: 11/18/15 Status: Discontinued ANES flumazenil 0.2 mg, Route: IVP, PRN, Dosing Weight 61.364, kg, PRN Benzodiazepine Reversal, Initial dose, Start date: 11/18/15 12:01:00 CDT, Duration: 30 day, Stop date: 12:00:00 CDT Start Date: 11/18/15 Stop Date: 11/18/15 Status: Discontinued ANES hydrALAZINE 10 mg, Route: IVP, Q20Min, Dosing Weight 62.5, kg, PRN Elevated BP, Start date: 11/18/15 12:01:00 CDT, Duration: 2 doses or times, Stop date: Limited # of times Start Date: 11/18/15 Stop Date: 11/18/15 Status: Discontinued ANES HYDROmorphone 0.5 mg, Route: IVP, Q5Min, Dosing Weight 61.364, kg, PRN Pain Score 7-10, Start date: 11/18/15 12:01:00 CDT, Duration: 4 doses or times, Stop date: Limited # of times Start Date: 11/18/15 Stop Date: 11/18/15 Status: Discontinued ANES labetalol 10 mg, Route: IVP, Q5Min, Dosing Weight 62.5, kg, PRN Elevated BP, Start date: 0 11/18/15 12:01:00 CDT, Duration: 5 doses or times, Stop date: Limited # of times Start Date: 11/18/15 Stop Date: 11/18/15 Status: Discontinued ANES meperidine 12.5 mg, Route: IVP, Q30Min, Dosing Weight 62.5, kg, PRN Other -See Comment, For shivering, Start date: 11/18/15 12:01:00 CDT, Duration: 2 doses or times, Stop date: Limited # of times Start Date: 11/18/15 Stop Date: 11/18/15 Status: Discontinued ANES naloxone 0.4 mg, Route: IVP, Q2MIN, Dosing Weight 61.364, kg, PRN Narcotic Reversal, Star t date: 11/18/15 12:01:00 CDT, Duration: 8 doses or times, Stop date: Limited # of times Start Date: 11/18/15 Stop Date: 11/18/15 Status: Discontinued ANES ondansetron 4 mg, Route: IVP, ONCE, Dosing Weight 61.364, kg, PRN Nausea & Vomiting, Start date: 11/18/15 12:01:00 CDT Start Date: 11/18/15 Stop Date: 11/18/15 Status: Discontinued ANES oxyCODONE 5 mg, Route: PO, Drug form: TAB, Q4H, Dosing Weight 61.364, kg, PRN Pain Score 4 -6, Start date: 11/18/15 12:01:00 CDT, Duration: 30 day, Stop date: 12/18/15 12: 00:00 CDT Start Date: 11/18/15 Stop Date: 11/18/15 Status: Discontinued ANES oxyCODONE 10 mg, Route: PO, Drug form: TAB, Q4H, Dosing Weight 61.364, kg, PRN Pain Score 7-10, Start date: 11/18/15 12:01:00 CDT, Duration: 30 day, Stop date: 12/18/15 1 2:00:00 CDT Start Date: 11/18/15 Stop Date: 11/18/15 Status: Discontinued ANES promethazine 6.25 mg, Route: IVPB, ONCE, Dosing Weight 62.5, kg, PRN Nausea & Vomiting, Start date: 11/18/15 12:01:00 CDT Start Date: 11/18/15 Stop Date: 11/18/15 Status: Discontinued ceFAZolin (ANES) Route: IV, Drug form: INJ, ONCE, Stop date: 11/18/15 11:33:00 CDT Start Date: 11/18/15 Stop Date: 11/18/15 Status: Completed famotidine (ANES) Route: IV, Drug form: INJ, ONCE, Stop date: 11/18/15 11:38:00 CDT Start Date: 11/18/15 Stop Date: 11/18/15 Status: Completed fentaNYL (ANES) Route: IV, Drug form: INJ, ONCE, Stop date: 11/18/15 11:33:00 CDT Start Date: 11/18/15 Stop Date: 11/18/15 Status: Completed ketOROLAC 30 mg/mL injectable solution 30 mg, Route: IV, POST OP, Dosing Weight 62.5, kg, Start date: 11/18/15 13:00:00 CDT Start Date: 11/18/15 Stop Date: 11/18/15 Status: Completed Lactated Ringers Injection IV 1000 mL 1,000 mL, Rate: 125 ml/hr, Infuse over: 8 hr, Route: IV, Dosing Weight 62.5 kg, Total Volume: 1,000, Start date: 11/18/15 12:01:00 CDT, Duration: 30 day, Stop d ate: 12/18/15 12:00:00 CDT Start Date: 11/18/15 Stop Date: 11/18/15 Status: Discontinued Lactated Ringers Injection IV 1000 mL 1,000 mL, Rate: 25 ml/hr, Infuse over: 40 hr, Route: IV, Dosing Weight 62.5 kg, Total Volume: 1,000, Start date: 11/18/15 9:34:00 CDT, Duration: 30 day, Stop da te: 12/18/15 9:33:00 CDT Start Date: 11/18/15 Stop Date: 11/18/15 Status: Discontinued lidocaine (ANES) Route: IV, Drug form: INJ, ONCE, Stop date: 11/18/15 11:33:00 CDT Start Date: 11/18/15 Stop Date: 11/18/15 Status: Completed LR 1000 mL INJ (ANES) Route: IV, Total Volume: 1,000, Start date: 11/18/15 10:47:00 CDT, Stop date: 11:47:00 CDT Start Date: 11/18/15 Stop Date: 11/18/15 Status: Completed ondansetron (ANES) Route: IV, Drug form: INJ, ONCE, Stop date: 11/18/15 11:38:00 CDT Start Date: 11/18/15 Stop Date: 11/18/15 Status: Completed propofol (ANES) Route: IV, Drug form: INJ, ONCE, Stop date: 11/18/15 11:33:00 CDT Start Date: 11/18/15 Stop Date: 11/18/15 Status: Completed Sodium Chloride 0.9% IV 500 mL 500 mL, Rate: 125 ml/hr, Infuse over: 4 hr, Route: IV, Dosing Weight 62.5 kg, To layton Volume: 500, Start date: 11/18/15 12:01:00 CDT, Duration: 30 day, Stop date: 12/18/15 12:00:00 CDT Start Date: 11/18/15 Stop Date: 11/18/15 Status: Discontinued Sodium Chloride 0.9% IV 500 mL 500 mL, Rate: 25 ml/hr, Infuse over: 20 hr, Route: IV, Dosing Weight 62.5 kg, To layton Volume: 500, Start date: 11/18/15 9:34:00 CDT, Duration: 30 day, Stop date: 12/18/15 9:33:00 CDT Start Date: 11/18/15 Stop Date: 11/18/15 Status: Discontinued tramadol 50 mg oral tablet 50 mg=1 tab, PO, Q6H, PRN Pain, X 10 day, # 20 tab, 0 Refill(s) Start Date: 11/18/15 Stop Date: 11/28/15 Status: Ordered Results HEMATOLOGY Most recent to 1 oldest [Reference Range]: WBC [3.7-10.4 K/CMM] 7.3 K/CMM (11/18/15 8:25 AM) RBC [4.20-5.40 4.64 M/CMM M/CMM] (11/18/15 8:25 AM) Hgb [12.0-16.0 g/dL] 14.5 g/dL (11/18/15 8:25 AM) Hct [36.0-48.0 %] 43.9 % (11/18/15 8:25 AM) MCV [80.0-98.0 fL] 94.6 fL (11/18/15 8:25 AM) MCH [27.0-31.0 pg] 31.3 pg *HI* (11/18/15 8:25 AM) MCHC [32.0-36.0 33.1 g/dL g/dL] (11/18/15 8:25 AM) RDW [11.5-14.5 %] 13.8 % (11/18/15 8:25 AM) Platelet [133-450 269 K/CMM K/CMM] (11/18/15 8:25 AM) MPV [7.4-10.4 fL] 6.9 fL *LOW* (11/18/15 8:25 AM) Segs [45.0-75.0 %] 48.7 % (11/18/15 8:25 AM) Lymphocytes 40.7 % [20.0-40.0 %] *HI* (11/18/15 8:25 AM) Monocytes [2.0-12.0 6.9 % %] (11/18/15 8:25 AM) Eosinophils [0.0-4.0 3.4 % %] (11/18/15 8:25 AM) Basophils [0.0-1.0 0.3 % %] (11/18/15 8:25 AM) Segs-Bands # 3.6 K/CMM [1.5-8.1 K/CMM] (11/18/15 8:25 AM) Lymphocytes # 3.0 K/CMM [1.0-5.5 K/CMM] (11/18/15 8:25 AM) Monocytes # [0.0-0.8 0.5 K/CMM K/CMM] (11/18/15 8:25 AM) Eosinophils # 0.2 K/CMM [0.0-0.5 K/CMM] (11/18/15 8:25 AM) Immunizations Given and Recorded Vaccine Date Status Refusal Reason Hx influenza vaccine-unspecified1 12/08/12 Given influenza virus vaccine, inactivated 02/11/15 Given influenza virus vaccine, inactivated2 02/15/14 Given influenza virus vaccine, inactivated3 11/29/13 Given influenza virus vaccine, inactivated4 12/08/12 Given pneumococcal 13-valent vaccine5 02/15/14 Given pneumococcal 23-valent vaccine6 01/14/12 Given 1Result Comment: done. Migrated from OBS ; Data migrated from [email or web address] on 04/09/2015. 2Admin Note: had at Drs office in nov 2013 3Result Comment: fluzone high dose [[id number]]. Migrated from OBS ; Data migrated from [employer] on 04/09/2015. 4Result Comment: fluzone (>3 yrs.) [[id number]]. Migrated from OBS ; Data migrated from [employer] on 04/09/2015. 5Admin Note: had at Drs office 2 years ago 6Result Comment: pneumovax. Migrated from OBS ; Data migrated from [email or web address] on 04/09/2015. Procedures Procedure Date Related Diagnosis Body Site Biopsy of breast1 09/05/15 Mammogram2 08/26/15 Bone density scan 07/23/15 Eye examination3 05/10/15 Echocardiogram4 12/28/14 Endoscopy5 11/21/14 Colonoscopy6 12/2011 Breast lumpectomy 1996 Appendectomy CEIOL - Cataract extraction and insertion of intraocular lens Cholecystectomy Hysterectomy Lithotripsy of gall bladder using fluoroscopic guidance Mastectomy of right breast7 Procedure on thyroid gland 1Right breast invasive lobular carcinoma 2Right breast biopsy Invasive lobular carcinoma 3Dr Fuad Solano dry eyes 4EF 68% Dr Blackmon 5Gastritis (Dr Rondon) 6Internal Hemorrhoids Dr Rondon Social History Social History Type Response Alcohol Never Smoking Status Never smoker; Exposure to Tobacco Smoke None; Cigarette Smoking Last 365 Days No; Reg Smoking Cessation Counseling No Assessment and Plan No data available for this section
--- OUTSIDE RECORDS SUMMARY | 2018-06-20 07:03 | XMS REPORT | Summary of Care ---
Author Organization Unknown Address Unknown Phone Unavailable Encounter HQ Ryan(SKYLA) [id number] Date(s): 02/14/14 - 02/16/[address] [facility] [id number] [address] [place] [id number] - [facility] Discharge Disposition: Home Physician Attending: London Lynch MD Physician Admitting: London Lynch MD Reason for Visit ACUTE GASTROENTERITIS, ABDOMINAL PAIN, COLITIS, HYPOKAL Vital Signs 1 2 3 Most recent to oldest [Reference Range]: 165.1 cm (02/14/14 6:26 PM) Height 98.3 DegF (02/16/14 4:05 PM) 98.4 DegF (02/16/14 11:47 AM) 98.3 DegF (02/16/14 8:06 AM) Temperature Oral [96.4-99.1 DegF] 166 mmHg *HI* (02/16/14 4:05 PM) 157 mmHg *HI* (02/16/14 11:47 AM) 132 mmHg (02/16/14 8:06 AM) Systolic Blood Pressure [90-140 mmHg] 84 mmHg (02/16/14 4:05 PM) 80 mmHg (02/16/14 11:47 AM) 75 mmHg (02/16/14 8:06 AM) Diastolic Blood Pressure [60-90 mmHg] 18 BRMIN (02/16/14 4:05 PM) 18 BRMIN (02/16/14 11:47 AM) 18 BRMIN (02/16/14 8:06 AM) Respiratory Rate [14-20 BRMIN] 61 bpm (02/16/14 4:05 PM) 60 bpm (02/16/14 11:47 AM) 57 bpm *LOW* (02/16/14 8:06 AM) Peripheral Pulse Rate [60-100 bpm] 61.364 kg (02/14/14 6:26 PM) Weight 22.51 m2 (02/14/14 6:26 PM) Body Mass Index Problem List Condition Effective Dates Status Health Status Informant Breast 1996 Active cancer(Confirmed) Breast Resolved cancer(Confirmed) Depression(Confirmed Active ) GERD - Active Gastro-esophageal reflux disease(Confirmed) 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 (Same as: Tylenol) Start Date: 02/15/14 Stop Date: 02/16/14 Status: Discontinued atropine 0.5 mg, 1.25 mL, Route: IVP, Drug form: INJ, PRN, Dosing Weight 61.364, kg, PRN See Nurse's Notes, Start date: 02/16/14 6:13:00, Duration: 30 day, Stop date: 6:12:00, symptomatic bradycardia, HR <40/minute Start Date: 02/16/14 Stop Date: 02/16/14 Status: Discontinued calcium gluconate + Sodium Chloride 0.9% IV 120 mL 3 gm, 30 mL, Route: IVPB, PRN, Dosing Weight 61.364, kg, PRN Abnormal Lab Result , For NON-ICU Patients Only., Start date: 02/16/14 15:07:00, Duration: 30 day, S top date: 03/18/14 15:06:00 Start Date: 02/16/14 Stop Date: 02/16/14 Status: Discontinued calcium gluconate + Sodium Chloride 0.9% IV 80 mL 2 gm, 20 mL, Route: IVPB, PRN, Dosing Weight 61.364, kg, PRN Abnormal Lab Result , For NON-ICU Patients Only., Start date: 02/16/14 15:07:00, Duration: 30 day, S top date: 03/18/14 15:06:00 Start Date: 02/16/14 Stop Date: 02/16/14 Status: Discontinued Cipro 400 mg, Route: IVPB, ONCE, Dosing Weight 61.364, kg, Priority: STAT, Start date: 02/15/14 3:57:00, Stop date: 02/15/14 3:57:00 Start Date: 02/15/14 Stop Date: 02/15/14 Status: Completed ciprofloxacin 400 mg, 200 mL, Route: IVPB, Drug form: INJ, [id number], Dosing Weight 61.364, kg, Priority: STAT, Start date: 02/15/14 4:34:00, Duration: 30 day, Stop date: 03/16 16:34:00 Notes: Do not refrigerate Start Date: 02/15/14 Stop Date: 02/15/14 Status: Discontinued docusate 100 mg, 1 cap, Route: PO, Drug form: CAP, BID, Dosing Weight 61.364, kg, PRN Con stipation, Start date: 02/15/14 4:34:00, Duration: 30 day, Stop date: 03/17/14 4 :33:00 Notes: (Same as: Colace) (Do Not Crush) Start Date: 02/15/14 Stop Date: 02/16/14 Status: Discontinued enoxaparin 40 mg, 0.4 mL, Route: SUB-Q, Drug form: INJ, [id number], Dosing Weight 61.364, kg, Start date: 02/15/14 9:00:00, Duration: 30 day, Stop date: 03/16/14 9:00:00 Notes: (Same as: Lovenox) Start Date: 02/15/14 Stop Date: 02/16/14 Status: Discontinued famotidine 20 mg, 2 mL, Route: IVP, Drug form: INJ, ONCE, Dosing Weight 61.364, kg, Priorit y: STAT, Start date: 02/14/14 21:33:00, Stop date: 02/14/14 21:33:00 Notes: (Same as: Pepcid)Can be dilute in 5-10cc NS IVP: Slow IV push over at le ast 2 minutes. Start Date: 02/14/14 Stop Date: 02/14/14 Status: Completed Flagyl 500 mg, 100 mL, Route: IVPB, Drug form: INJ, ONCE, Dosing Weight 61.364, kg, [place] ority: STAT, Start date: 02/15/14 3:56:00, Stop date: 02/15/14 3:56:00 Notes: (Same as: Flagyl) Avoid alcohol. Start Date: 02/15/14 Stop Date: 02/15/14 Status: Completed Flagyl 500 mg, 100 mL, Route: IVPB, Drug form: INJ, [id number], Dosing Weight 61.364, kg, P riority: STAT, Start date: 02/15/14 4:34:00, Duration: 30 day, Stop date: 20:34:00 Notes: (Same as: Flagyl) Avoid alcohol. Start Date: 02/15/14 Stop Date: 02/16/14 Status: Discontinued GI cocktail 30 mL, Route: PO, Drug Form: SUSP, Dosing Weight 61.364, kg, ONCE, STAT, Start d ate: 02/14/14 21:33:00, Stop date: 02/14/14 21:33:00 Notes: G.I. Cocktail=antacid with simethicone 22.5 mL - lidocaine viscous 7.5 mL Start Date: 02/14/14 Stop Date: 02/14/14 Status: Completed GI cocktail 30 mL, Route: PO, Dosing Weight 61.364, kg, ONCE, STAT, Start date: 02/14/14 23: 07:00, Stop date: 02/14/14 23:07:00 Start Date: 02/14/14 Stop Date: 02/14/14 Status: Completed ketorolac 30 mg, Route: IVP, Drug form: INJ, ONCE, Dosing Weight 61.364, kg, Priority: STA T, Start date: 02/14/14 23:11:00, Stop date: 02/14/14 23:11:00 Start Date: 02/14/14 Stop Date: 02/14/14 Status: Completed levothyroxine 88 microgram, 1 tab, Route: PO, Drug form: TAB, [id number], Dosing Weight 61.364, kg , Start date: 02/16/14 6:30:00, Duration: 30 day, Stop date: 03/17/14 6:30:00 Notes: Take 1 hour before or 2 hours after meal; Enteral feeds may interefere wi th the absorption of this medication. (Same as:Synthroid) Start Date: 02/16/14 Stop Date: 02/16/14 Status: Discontinued magnesium oxide 800 mg, 2 tab, Route: PO, Drug form: TAB, PRN, Dosing Weight 61.364, kg, PRN Abn ormal Lab Result, For NON-ICU Patients Only., Start date: 02/16/14 15:07:00, Dur ation: 30 day, Stop date: 03/18/14 15:06:00 Notes: (Same as: Mag-Ox 400)Magnesium oxide 381lb=216gm elemental magnesiumDose= ____mg magnesium oxide (___mg elemental magnesium) Start Date: 02/16/14 Stop Date: 02/16/14 Status: Discontinued magnesium sulfate 2 gm, 50 mL, Route: IVPB, Drug form: INJ, PRN, Dosing Weight 61.364, kg, PRN Abn ormal Lab Result, For NON-ICU Patients Only., Start date: 02/16/14 15:07:00, Dur ation: 30 day, Stop date: 03/18/14 15:06:00 Start Date: 02/16/14 Stop Date: 02/16/14 Status: Discontinued magnesium sulfate 1 gm, 50 mL, Route: IVPB, Drug form: INJ, PRN, Dosing Weight 61.364, kg, PRN Abn ormal Lab Result, For NON-ICU Patients Only., Start date: 02/16/14 15:07:00, Dur ation: 30 day, Stop date: 03/18/14 15:06:00 Start Date: 02/16/14 Stop Date: 02/16/14 Status: Discontinued morphine Sulfate 4 mg, 2 mL, Route: IVP, Drug form: INJ, ONCE, Dosing Weight 61.364, kg, Priority : STAT, Start date: 02/14/14 21:33:00, Stop date: 02/14/14 21:33:00 Notes: (Same as:MORPhine Sulfate) Start Date: 02/14/14 Stop Date: 02/14/14 Status: Completed morphine Sulfate 4 mg, Route: IVP, Drug form: INJ, ONCE, Dosing Weight 61.364, kg, Priority: STAT , Start date: 02/15/14 1:48:00, Stop date: 02/15/14 1:48:00 Start Date: 02/15/14 Stop Date: 02/15/14 Status: Completed morphine Sulfate 2 mg, 1 mL, Route: IVP, Drug form: INJ, Q3H, Dosing Weight 61.364, kg, PRN Pain Score 4-6, Start date: 02/15/14 4:34:00, Duration: 30 day, Stop date: 03/17/14 4 :33:00 Notes: (Same as:MORPhine Sulfate) Start Date: 02/15/14 Stop Date: 02/16/14 Status: Discontinued NexIUM 40 mg, Route: PO, Drug form: ECCAP, Daily, Dosing Weight 61.364, kg, Start date: 02/16/14 9:00:00, Duration: 30 day, Stop date: 03/17/14 9:00:00 Start Date: 02/16/14 Stop Date: 02/15/14 Status: Deleted NexIUM 40 mg oral delayed release capsule 40 mg=1 cap, PO, Daily Start Date: 02/15/14 Status: Ordered nitroglycerin 0.4 mg sublingual tablet 0.4 mg, 1 tab, Route: SL, Drug form: TAB, Q5Min, Dosing Weight 61.364, kg, PRN C hest Pain, Start date: 02/16/14 6:13:00, Duration: 30 day, Stop date: 03/18/14 6 :12:00, Chest Pain,repeat Q5 minutes for total of 3 doses Notes: (Same as:Nitroquick, Nitrostat)"Do Not Crush" Sublingual tablet Start Date: 02/16/14 Stop Date: 02/16/14 Status: Discontinued ondansetron 4 mg, 2 mL, Route: IVP, Drug form: INJ, ONCE, Dosing Weight 61.364, kg, Priority : STAT, Start date: 02/14/14 21:33:00, Stop date: 02/14/14 21:33:00 Notes: (Same as: Zofran) Start Date: 02/14/14 Stop Date: 02/14/14 Status: Completed oxybutynin 15 mg, 3 tab, Route: PO, Drug form: ERTAB, Daily, Dosing Weight 61.364, kg, Star t date: 02/16/14 9:00:00, Duration: 30 day, Stop date: 03/17/14 9:00:00 Notes: (Same as: Ditropan XL) "Do Not Crush" Start Date: 02/16/14 Stop Date: 02/16/14 Status: Discontinued Pepcid 20 mg, Route: IV, ONCE, Dosing Weight 61.364, kg, Start date: 02/14/14 23:07:00, Stop date: 02/14/14 23:07:00 Start Date: 02/14/14 Stop Date: 02/14/14 Status: Completed Phenergan + Sodium Chloride 0.9% IV 50 mL 6.25 mg, 0.25 mL, Route: IVPB, Drug form: INJ, Q6H, Dosing Weight 61.364, kg, [place] N Nausea & Vomiting, Start date: 02/15/14 8:30:00, Duration: 30 day, Stop date: 03/17/14 8:29:00 Notes: Do not give IV push. (Same as: Phenergan) Start Date: 02/15/14 Stop Date: 02/16/14 Status: Discontinued phenytoin 200 mg, 2 cap, Route: PO, Drug form: ERCAP, Bedtime, Dosing Weight 61.364, kg, S tart date: 02/15/14 21:00:00, Duration: 30 day, Stop date: 03/16/14 21:00:00 Notes: (Same as: Dilantin) Do not open, crush, or chew. Start Date: 02/15/14 Stop Date: 02/16/14 Status: Discontinued phenytoin 100 mg oral capsule, extended release 200 mg=2 cap, PO, Bedtime Start Date: 02/15/14 Status: Ordered potassium chloride 20 mEq, 15 mL, Route: NJ, Drug form: LIQ, PRN, Dosing Weight 61.364, kg, PRN Abn ormal Lab Result, For NON-ICU Patients Only, Start date: 02/16/14 15:07:00, Dura tion: 30 day, Stop date: 03/18/14 15:06:00 Notes: (Same as: Potassium Chloride) Start Date: 02/16/14 Stop Date: 02/16/14 Status: Discontinued potassium chloride 20 mEq, 1 tab, Route: PO, Drug form: ERTAB, PRN, Dosing Weight 61.364, kg, PRN A bnormal Lab Result, For NON-ICU Patients Only, Start date: 02/16/14 15:07:00, Du ration: 30 day, Stop date: 03/18/14 15:06:00 Notes: (Same as: K-Dur 20)"Do Not Crush" With food and full glass of water Start Date: 02/16/14 Stop Date: 02/16/14 Status: Discontinued potassium chloride 10 mEq, 100 mL, Route: IVPB, Drug form: INJ, PRN, Dosing Weight 61.364, kg, PRN Abnormal Lab Result, For NON-ICU Patients Only, Start date: 02/16/14 15:07:00, D uration: 30 day, Stop date: 03/18/14 15:06:00 Notes: Infuse at a rate of 10 mEq/hr.(Same as: KCL) Start Date: 02/16/14 Stop Date: 02/16/14 Status: Discontinued potassium chloride 20 mEq/15 mL oral liquid 40 mEq, 30 mL, Route: PO, Drug form: LIQ, ONCE, Dosing Weight 61.364, kg, Priori ty: STAT, Start date: 02/14/14 23:06:00, Stop date: 02/14/14 23:06:00 Notes: (Same as: Potassium Chloride) Start Date: 02/14/14 Stop Date: 02/14/14 Status: Completed potassium phosphate + Sodium Chloride 0.9% IV 240 mL 30 mmol, 10 mL, Route: IVPB, PRN, Dosing Weight 61.364, kg, PRN Abnormal Lab Res ult, For NON-ICU Patients Only., Start date: 02/16/14 15:07:00, Duration: 30 day , Stop date: 03/18/14 15:06:00 Notes: (Same as: K Phosphate.) 1 mMol phoshate has 1.47 mEq potassium Infuse o oli 4 hours Start Date: 02/16/14 Stop Date: 02/16/14 Status: Discontinued potassium phosphate + Sodium Chloride 0.9% IV 245 mL 15 mmol, 5 mL, Route: IVPB, PRN, Dosing Weight 61.364, kg, PRN Abnormal Lab Resu lt, For NON-ICU Patients Only., Start date: 02/16/14 15:07:00, Duration: 30 day, Stop date: 03/18/14 15:06:00 Notes: (Same as: K Phosphate.) 1 mMol phoshate has 1.47 mEq potassium Infuse o oli 4 hours Start Date: 02/16/14 Stop Date: 02/16/14 Status: Discontinued potassium phosphate-sodium phosphate 250 mg-278 mg-164 mg oral powder 2 pkt, Route: PO, Drug Form: PDR/REC, Dosing Weight 61.364, kg, PRN, PRN Abnorma l Lab Result, For NON-ICU Patients Only, Start date: 02/16/14 15:07:00, Duration : 30 day, Stop date: 03/18/14 15:06:00 Notes: (Same as: Neutra-Phos) Each 1.25 gm pkt has 250mg phosphorous. Mix w/2.5 oz water and stir. Start Date: 02/16/14 Stop Date: 02/16/14 Status: Discontinued Protonix 40 mg, 1 tab, Route: PO, Drug form: ECTAB, Before Dinner, Start date: 02/16/14 1 6:30:00, Duration: 30 day, Stop date: 03/17/14 16:30:00 Notes: Tablet should not be chewed or crushed.(Same as: Protonix) Start Date: 02/16/14 Stop Date: 02/16/14 Status: Discontinued Saline Flush 0.9% 10 mL, Route: IVP, Drug Form: INJ, Dosing Weight 61.364, kg, PRN, PRN Line Flush , Start date: 02/14/14 21:33:00, Duration: 30 day, Stop date: 03/16/14 21:32:00 Notes: (Same as: BD Posiflush) Start Date: 02/14/14 Stop Date: 02/16/14 Status: Discontinued Saline Flush 0.9% 10 ml, Route: IVP, Drug Form: INJ, Dosing Weight 61.364, kg, PRN, PRN Line Flush , Start date: 02/15/14 4:34:00, Duration: 30 day, Stop date: 03/17/14 4:33:00 Notes: (Same as: BD Posiflush) Start Date: 02/15/14 Stop Date: 02/16/14 Status: Discontinued sertraline 50 mg, 1 tab, Route: PO, Drug form: TAB, Daily, Dosing Weight 61.364, kg, Start date: 02/16/14 9:00:00, Duration: 30 day, Stop date: 03/17/14 9:00:00 Notes: (Same as: Zoloft) Start Date: 02/16/14 Stop Date: 02/16/14 Status: Discontinued sertraline 50 mg oral tablet 50 mg=1 tab, PO, Daily Start Date: 02/15/14 Status: Ordered Sodium Chloride 0.9% IV 1,000 mL 1,000 mL, Rate: 125 ml/hr, Infuse over: 8 hr, Route: IV, Dosing Weight 61.364 kg , Total Volume: 1,000, Start date: 02/15/14 4:34:00, Duration: 30 day, Stop date : 03/17/14 4:33:00 Start Date: 02/15/14 Stop Date: 02/16/14 Status: Discontinued sodium phosphate + Dextrose 5% in Water IV 240 mL 30 mmol, 10 mL, Route: IVPB, PRN, Dosing Weight 61.364, kg, PRN Abnormal Lab Res ult, For NON-ICU Patients Only., Start date: 02/16/14 15:07:00, Duration: 30 day , Stop date: 03/18/14 15:06:00 Start Date: 02/16/14 Stop Date: 02/16/14 Status: Discontinued sodium phosphate + Dextrose 5% in Water IV 245 mL 15 mmol, 5 mL, Route: IVPB, PRN, Dosing Weight 61.364, kg, PRN Abnormal Lab Resu lt, For NON-ICU Patients Only., Start date: 02/16/14 15:07:00, Duration: 30 day, Stop date: 03/18/14 15:06:00 Start Date: 02/16/14 Stop Date: 02/16/14 Status: Discontinued vancomycin 125 mg, 2.5 mL, Route: PO, Drug form: SUSP, ABXQ6H, Dosing Weight 61.364, kg, Pr iority: NOW, Start date: 02/15/14 14:03:00, Duration: 30 day, Stop date: 5 8:03:00 Notes: "DILUTE EACH DOSE WITH 30ML OF WATER OR APPLE/ORANGE JUICE PRIOR TO ADMIN ISTRATION" Start Date: 02/15/14 Stop Date: 02/16/14 Status: Discontinued vancomycin 250 mg/5 mL oral solution 125 mg=2.5 mL, PO, ABXQ6H, # 100 mL, 0 Refill(s) Start Date: 02/16/14 Stop Date: 02/26/14 Status: Ordered Zofran 4 mg, Route: IM, Drug form: INJ, ONCE, Dosing Weight 61.364, kg, Priority: STAT, Start date: 02/15/14 3:54:00, Stop date: 02/15/14 3:54:00 Start Date: 02/15/14 Stop Date: 02/15/14 Status: Completed Zofran 4 mg, Route: IVP, Drug form: INJ, ONCE, Dosing Weight 61.364, kg, Priority: STAT , Start date: 02/15/14 1:48:00, Stop date: 02/15/14 1:48:00 Start Date: 02/15/14 Stop Date: 02/15/14 Status: Completed Results ELECTROLYTES 1 2 3 Most recent to oldest [Reference Range]: 145 mEq/L (02/16/14 5:02 AM) 137 mEq/L (02/14/14 10:30 PM) Sodium Lvl [135-145 mEq/L] 3.1 mEq/L *LOW* (02/16/14 5:02 AM) 3.0 mEq/L 1 *CRIT* (02/14/14 10:30 PM) Potassium Lvl [3.5-5.1 mEq/L] 111 mEq/L *HI* (02/16/14 5:02 AM) 103 mEq/L (02/14/14 10:30 PM) Chloride Lvl [95-109 mEq/L] 26 mEq/L (02/16/14 5:02 AM) 24 mEq/L (02/14/14 10:30 PM) CO2 [24-32 mEq/L] 11.1 mEq/L (02/16/14 5:02 AM) 13.0 mEq/L (02/14/14 10:30 PM) AGAP [10.0-20.0 mEq/L] 1Result Comment: Critical Result(s) called to prasad bansal at 02/14/2014 23:02 byemw. Read back OK. CHEM PANEL 1 2 3 Most recent to oldest [Reference Range]: 0.7 mg/dL (02/16/14 5:02 AM) 0.7 mg/dL (02/15/14 6:39 AM) 0.6 mg/dL (02/14/14 10:30 PM) Creatinine Lvl [0.5-1.4 mg/dL] 86 mL/min/1.73m2 2 *NA* (02/16/14 5:02 AM) 86 mL/min/1.73m2 3 *NA* (02/15/14 6:39 AM) 90 mL/min/1.73m2 4 *NA* (02/14/14 10:30 PM) eGFR 10 mg/dL (02/16/14 5:02 AM) 10 mg/dL (02/14/14 10:30 PM) BUN [7-22 mg/dL] 14 (02/16/14 5:02 AM) 17 (02/14/14 10:30 PM) B/C Ratio [6-25] 94 mg/dL 5 (02/16/14 5:02 AM) 116 mg/dL 6 *HI* (02/14/14 10:30 PM) Glucose Lvl [70-99 mg/dL] 5.6 g/dL *LOW* (02/16/14 5:02 AM) 7.0 g/dL (02/14/14 10:30 PM) Total Protein [6.4-8.4 g/dL] 2.8 g/dL *LOW* (02/16/14 5:02 AM) 3.4 g/dL *LOW* (02/14/14 10:30 PM) Albumin Lvl [3.5-5.0 g/dL] 2.8 g/dL (02/16/14 5:02 AM) 3.6 g/dL (02/14/14 10:30 PM) Globulin [2.0-4.0 g/dL] 1.0 (02/16/14 5:02 AM) 0.9 (02/14/14 10:30 PM) A/G Ratio [0.7-1.6] 7.8 mg/dL *LOW* (02/16/14 5:02 AM) 8.7 mg/dL (02/14/14 10:30 PM) Calcium Lvl [8.5-10.5 mg/dL] 1.9 mg/dL (02/16/14 5:02 AM) Magnesium Lvl [1.8-2.4 mg/dL] 47 unit/L (02/16/14 5:02 AM) 45 unit/L (02/14/14 10:30 PM) ALT [0-65 unit/L] 27 unit/L (02/16/14 5:02 AM) 25 unit/L (02/14/14 10:30 PM) AST [0-37 unit/L] 102 unit/L (02/16/14 5:02 AM) 140 unit/L *HI* (02/14/14 10:30 PM) Alk Phos [39-136 unit/L] 0.5 mg/dL (02/16/14 5:02 AM) 0.4 mg/dL (02/14/14 10:30 PM) Bili Total [0.2-1.3 mg/dL] 46 unit/L (02/14/14 10:30 PM) Amylase Lvl [25-115 unit/L] 56 unit/L *LOW* (02/14/14 10:30 PM) Lipase Lvl [73-393 unit/L] 2Result Comment: The eGFR is calculated using [...] from the National Kidney Disease Education Program ( NKDEP) which additionally recommends that when the eGFR is used in patients with extremes of body mass index for purposes of drug dosing, the eGFR should be mul tiplied by the estimated BMI. 3Result Comment: The eGFR is calculated using [...] from the National Kidney Disease Education Program ( NKDEP) which additionally recommends that when the eGFR is used in patients with extremes of body mass index for purposes of drug dosing, the eGFR should be mul tiplied by the estimated BMI. 4Result Comment: The eGFR is calculated using [...] from the National Kidney Disease Education Program ( NKDEP) which additionally recommends that when the eGFR is used in patients with extremes of body mass index for purposes of drug dosing, the eGFR should be mul tiplied by the estimated BMI. 5Interpretive Data: Adult reference range values reflect the clinical guidelines of the [place] [employer]. 6Interpretive Data: Adult reference range values reflect the clinical guidelines of the [place] [employer]. CARDIAC ENZYMES 1 2 3 Most recent to oldest [Reference Range]: <0.5 ng/mL (02/14/14 10:30 PM) CK MB [0.5-3.6 ng/mL] <0.02 ng/mL (02/14/14 10:30 PM) Troponin-I [0.00-0.40 ng/mL] TOXICOLOGY 1 2 3 Most recent to oldest [Reference Range]: 3.5 ug/ml *LOW* (02/15/14 6:39 AM) Phenytoin Total [10.0-20.0 ug/ml] URINE AND STOOL 1 2 3 Most recent to oldest [Reference Range]: Clear (02/14/14 11:47 PM) UA Turbidity [Clear] Ltyellow *NA* (02/14/14 11:47 PM) UA Color 8.0 (02/14/14 11:47 PM) UA pH [5.0-8.0] 1.013 (02/14/14 11:47 PM) UA Spec Grav [<=1.030] Negative mg/dL *NA* (02/14/14 11:47 PM) UA Glucose [Negative mg/dL] Negative (02/14/14 11:47 PM) UA Blood [Negative] 20 mg/dL *ABN* (02/14/14 11:47 PM) UA Ketones [Negative mg/dL] Negative mg/dL (02/14/14 11:47 PM) UA Protein [Negative mg/dL] <=1.0 mg/dL *NA* (02/14/14 11:47 PM) UA Urobilinogen [0.1-1.0 mg/dL] Negative *NA* (02/14/14 11:47 PM) UA Bili [Negative] Trace *ABN* (02/14/14 11:47 PM) UA Leuk Est [Negative] Negative (02/14/14 11:47 PM) UA Nitrite [Negative] 9 /HPF *HI* (02/14/14 11:47 PM) UA WBC [0-5 /HPF] 4 /HPF *HI* (02/14/14 11:47 PM) UA RBC [0-2 /HPF] Occasional /HPF *NA* (02/14/14 11:47 PM) UA Bacteria [None Seen /HPF] Occasional /LPF *NA* (02/14/14 11:47 PM) UA Sq Epi [Few /LPF] Few /LPF *NA* (02/14/14 11:47 PM) UA Mucus [None Seen /LPF] HEMATOLOGY 1 2 3 Most recent to oldest [Reference Range]: 8.7 K/CMM (02/16/14 5:02 AM) 10.2 K/CMM (02/14/14 10:30 PM) WBC [3.7-10.4 K/CMM] 3.74 M/CMM *LOW* (02/16/14 5:02 AM) 4.32 M/CMM (02/14/14 10:30 PM) RBC [4.20-5.40 M/CMM] 12.3 g/dL (02/16/14 5:02 AM) 14.1 g/dL (02/14/14 10:30 PM) Hgb [12.0-16.0 g/dL] 35.7 % *LOW* (02/16/14 5:02 AM) 40.9 % (02/14/14 10:30 PM) Hct [36.0-48.0 %] 95.4 fL (02/16/14 5:02 AM) 94.7 fL (02/14/14 10:30 PM) MCV [80.0-98.0 fL] 32.8 pg *HI* (02/16/14 5:02 AM) 32.6 pg *HI* (02/14/14 10:30 PM) MCH [27.0-31.0 pg] 34.4 g/dL (02/16/14 5:02 AM) 34.4 g/dL (02/14/14 10:30 PM) MCHC [32.0-36.0 g/dL] 13.9 % (02/16/14 5:02 AM) 13.4 % (02/14/14 10:30 PM) RDW [11.5-14.5 %] 286 K/CMM (02/16/14 5:02 AM) 300 K/CMM (02/15/14 6:39 AM) 330 K/CMM (02/14/14 10:30 PM) Platelet [133-450 K/CMM] 7.6 fL (02/16/14 5:02 AM) 7.3 fL *LOW* (02/14/14 10:30 PM) MPV [7.4-10.4 fL] 57.5 % (02/16/14 5:02 AM) 67.1 % (02/14/14 10:30 PM) Segs [45.0-75.0 %] 35.1 % (02/16/14 5:02 AM) 27.7 % (02/14/14 10:30 PM) Lymphocytes [20.0-40.0 %] 6.0 % (02/16/14 5:02 AM) 4.7 % (02/14/14 10:30 PM) Monocytes [2.0-12.0 %] 0.8 % (02/16/14 5:02 AM) 0.1 % (02/14/14 10:30 PM) Eosinophils [0.0-4.0 %] 0.6 % (02/16/14 5:02 AM) 0.4 % (02/14/14 10:30 PM) Basophils [0.0-1.0 %] 5.0 K/CMM (02/16/14 5:02 AM) 6.9 K/CMM (02/14/14 10:30 PM) Segs-Bands # [1.5-8.1 K/CMM] 3.1 K/CMM (02/16/14 5:02 AM) 2.8 K/CMM (02/14/14 10:30 PM) Lymphocytes # [1.0-5.5 K/CMM] 0.5 K/CMM (02/16/14 5:02 AM) 0.5 K/CMM (02/14/14 10:30 PM) Monocytes # [0.0-0.8 K/CMM] 0.1 K/CMM (02/16/14 5:02 AM) Eosinophils # [0.0-0.5 K/CMM] 0.1 K/CMM (02/16/14 5:02 AM) Basophils # [0.0-0.2 K/CMM] 31.7 seconds 7 (02/15/14 11:16 AM) PTT [22.9-35.8 seconds] 7Interpretive Data: Heparin Therapeutic Range: 57 - 92 Seconds Medications Administered During Your Visit No data available for this section Immunizations Vaccine Date Refusal Reason influenza virus vaccine, inactivated1 02/15/14 pneumococcal 13-valent vaccine2 02/15/14 1Admin Note: had at Drs office in nov 2013 2Admin Note: had at Drs office 2 years ago Procedures Procedure Type Body Site Date of Procedure Related Diagnosis Appendectomy Hysterectomy Lithotripsy of gall bladder using fluoroscopic guidance Mastectomy of right 1997 breast Social History Social History Type Response Alcohol Use: Never Smoking Status Never smoker, Exposure to Tobacco Smoke None, Cigarette Smoking Last 365 Days No, Reg Smoking Cessation Counseling No Assessment and Plan Extracted from: Title: Clinical Document Author: Guerrero Bucio MD Date: 02/15/14 GI Consult Requesting Physician: Cris PADILLA/Reason for Consultation: abdominal pain, diarrhea HISTORY OF PRESENT ILLNESS: 73 year old woman with reocurring episodes of abdominal pain, LOCATION: periumbilical SEVERITY: severe DURATION: started about 1 week ago TIME: all the time MOD: worse with food intake QUAL: associated with upper respiratory infection symptoms and non-bloody diarrhea. of note, normal colonoscopy / egd per pt < 2 years ago recent use of antibiotics Review of Systems: (-)=Negative,(+)=Positive 1) Const: (-) fever, (-) weight change 2) Skin: (-) rash, (-) bleeding 3) HEENT: (-) difficulty swallowing, (-) swelling 4) Eyes: (-) vision changes, (-) bleeding 5) Neuro: (-) weakness, (-) headaches 6) Resp: (-) dyspnea on exertion, (+) cough 7) Cardio: (-) chest pain, (-) orthopnea 8) GI: (-) blood in stool, (-) reflux 9) : (-) dysuria, (-) bloody discharge 10) Endo: (-) heat intolerance, (-) cold intolerance PMH: derepssion, gerd, seizures, urinary incontinence FAMHX: unknown SOCHX: no tobacco, no alcohol MEDS: Medication List Active Medications Ordered acetaminophen: 650 mg, 2 tab, PO, Q4H, PRN: Pain 1-3/Temp > 100.4 F. docusate: 100 mg, 1 cap, PO, BID, PRN: Constipation. enoxaparin: 40 mg, 0.4 mL, SUB-Q, [id number]. esomeprazole: 40 mg, 1 cap, PO, Daily. levothyroxine: 88 microgram, 1 tab, PO, Daily. metroNIDAZOLE: 500 mg, 100 mL, 200 ml/hr, IVPB, [id number]. morphine Sulfate: 2 mg, 1 mL, IVP, Q3H, PRN: Pain Score 4-6. oxybutynin: 15 mg, 1 tab, PO, Daily. phenytoin: 200 mg, 2 cap, PO, Bedtime. promethazine + Sodium Chloride 0.9% IV 50 mL: 6.25 mg, 0.25 mL, 100.5 ml/hr, IVPB, Q6H, PRN: Nausea & Vomiting. sertraline: 50 mg, 1 tab, PO, Daily. sodium chloride: 10 mL, IVP, PRN, PRN: Line Flush. sodium chloride: 10 ml, IVP, PRN, PRN: Line Flush. Sodium Chloride 0.9% IV 1,000 mL: 125 ml/hr, IV, Stop: 03/17/14 4:33:00. vancomycin: 125 mg, PO, ABXQ6H. Physical Exam: Vitals and Temp: VitalsTmp(F)[id number] 02/15 10:53----[id number] 3.0L/m 02/15 09:50----[id number] 3.0L/m 02/15 09:30 3.0L/m 02/15 07:50----[id number] 0.0L/m 02/15 06:[id number] 2.0L/m 24 Hr Tmax: 98.9F (37.17c) at 02/14 18:26Vital Signs are the last 5 in the past 48 hours. 1) General: No acute distress, awake 2) HEENT: Extraocular movements intact; oropharynx clear; moist mucous membranes 3) Neck: no JVD, full range of motion 4) Lungs: Good respiratory effort, symmetrical palpable rise of chest 5) Cardio: Regular rate, good palpable pulses 6) Abdomen: Soft, non-tender with bowel sounds, spleen not palpable 7) Extremities: no clubbing, cyanosis, +edema 8) Skin: no rashes, good palpable turgor 9) Musc: fair upper extremity ROM, assymmetrical strength 10) Psyc: good affect, appropriate insight MEDICAL DECISION MAKING REVIEWED DATA: Labs (Last four charted values) WBC 10.2(FEB 14) Hgb 14.1(FEB 14) Hct 40.9(FEB 14) Plt 300(FEB 15)330(FEB 14) Na 137(FEB 14) K C 3.0(FEB 14) CO2 24(FEB 14) Cl 103(FEB 14) Cr 0.7(FEB 15)0.6(FEB 14) BUN 10(FEB 14) Glucose Random H 116(FEB 14) Ca 8.7(FEB 14) PTT 31.7(FEB 15) Troponin <0.02(FEB 14) CK MB <0.5(FEB 14) ASSESSMENT/PLAN: Abdominal pain Right sided colitis , per ct Recent antibiotic use - start vanco po - await c diff, stool studies - outpatient colonoscopy in 6 weeks if symptoms improve - pain/emesis control Extracted from: Title: Clinical Document Author: London Lynch MD Date: 02/15/14 Chart reveiwed. Patient seen and examined. WIll continue to follow. H&P to follow.
--- OUTSIDE RECORDS SUMMARY | 2018-06-20 07:03 | XMS REPORT | Summary of Care ---
Author Author [facility] Organization [facility] Address Unknown Phone Unavailable Encounter MATT Davis(SKYLA) [id number] Date(s): 10/16/15 - 10/16/15 [facility] [address] [place] [address]- Discharge Disposition: Home or Self Care Attending Physician: Abhijit Ballesteros MD Referring Physician: Abhijit Ballesteros MD Vital Signs 1 2 3 Most recent to oldest [Reference Range]: 156.21 cm (10/09/15 1:28 PM) Height 98 DegF (10/09/15 1:29 PM) Temperature Oral [96.4-99.1 DegF] 130/61 mmHg (10/16/15 3:30 PM) 154/78 mmHg *HI* (10/16/15 1:30 PM) 142/61 mmHg *HI* (10/16/15 1:15 PM) Blood Pressure [90-140/60-90 mmHg] 23 BRMIN *HI* (10/16/15 1:15 PM) 14 BRMIN (10/16/15 1:00 PM) 14 BRMIN (10/16/15 12:45 PM) Respiratory Rate [14-20 BRMIN] 68 bpm (10/09/15 1:29 PM) Peripheral Pulse Rate [60-100 bpm] 61.364 kg (10/09/15 1:28 PM) Weight 25.15 m2 (10/09/15 1:28 PM) Body Mass Index Problem List Condition [...] Mixed anxiety and 12/08/12 Active depressive disorder9 [id number] 06/06/13 Active Osteoporosis(Confirm Active ed) Osteoporosis(Confirm Active ed) Overactive Active bladder(Confirmed) Recurrent cyst of Active breast(Confirmed)11 Seizure(Confirmed) Active Seizure(Confirmed) Resolved Seizure [id number] Active [id number] 06/06/13 Active Vitamin D 08/09/13 Active [id number] 1previous right breast cancer 2Data migrated from [...] on 10/04/14. Originally documented as PENICILLIN. Medications albuterol-ipratropium 2.5-0.5 mg inhalation solution 3 mL, Route: NEB, Dosing Weight 61.364, kg, ONCE, STAT, Start date: 10/16/15 10: 58:00 CDT, Stop date: 10/16/15 10:58:00 CDT Start Date: 10/16/15 Stop Date: 10/16/15 Status: Discontinued ANES acetaminophen 1,000 mg, Route: IVPB, Drug form: INJ, ONCE, Dosing Weight 61.364, kg, PRN Pain Score 1-3, Start date: 10/16/15 12:40:00 CDT, Duration: 1 doses or times, Stop d ate: Limited # of times Start Date: 10/16/15 Stop Date: 10/16/15 Status: Discontinued ANES diphenhydrAMINE 12.5 mg, Route: IVP, Drug form: INJ, Q6H, Dosing Weight 61.364, kg, PRN Itching, Start date: 10/16/15 12:40:00 CDT, Duration: 30 day, Stop date: 11/15/15 12:39: 00 CDT Start Date: 10/16/15 Stop Date: 10/16/15 Status: Discontinued ANES esmolol 10 mg, Route: IVP, Q5Min, Dosing Weight 61.364, kg, PRN Other -See Comment, Star t date: 10/16/15 12:40:00 CDT, Duration: 5 doses or times, Stop date: Limited # of times Start Date: 10/16/15 Stop Date: 10/16/15 Status: Discontinued ANES fentaNYL 25 microgram, Route: IVP, Q5Min, Dosing Weight 61.364, kg, PRN Pain Score 4-6, S tart date: 10/16/15 12:40:00 CDT, Duration: 4 doses or times, Stop date: Limited # of times Start Date: 10/16/15 Stop Date: 10/16/15 Status: Discontinued ANES fentaNYL 50 microgram, Route: IVP, Q5Min, Dosing Weight 61.364, kg, PRN Pain Score 7-10, Start date: 10/16/15 12:40:00 CDT, Duration: 2 doses or times, Stop date: Limite d # of times Start Date: 10/16/15 Stop Date: 10/16/15 Status: Discontinued ANES flumazenil 0.2 mg, Route: IVP, PRN, Dosing Weight 61.364, kg, PRN Benzodiazepine Reversal, Initial dose, Start date: 10/16/15 12:40:00 CDT, Duration: 30 day, Stop date: 12:39:00 CDT Start Date: 10/16/15 Stop Date: 10/16/15 Status: Discontinued ANES hydrALAZINE 10 mg, Route: IVP, Q20Min, Dosing Weight 61.364, kg, PRN Elevated BP, Start date : 10/16/15 12:40:00 CDT, Duration: 2 doses or times, Stop date: Limited # of lory es Start Date: 10/16/15 Stop Date: 10/16/15 Status: Discontinued ANES HYDROmorphone 0.5 mg, Route: IVP, Q5Min, Dosing Weight 61.364, kg, PRN Pain Score 7-10, Start date: 10/16/15 12:40:00 CDT, Duration: 4 doses or times, Stop date: Limited # of times Start Date: 10/16/15 Stop Date: 10/16/15 Status: Discontinued ANES labetalol 10 mg, Route: IVP, Q5Min, Dosing Weight 61.364, kg, PRN Elevated BP, Start date: 10/16/15 12:40:00 CDT, Duration: 5 doses or times, Stop date: Limited # of times Start Date: 10/16/15 Stop Date: 10/16/15 Status: Discontinued ANES meperidine 12.5 mg, Route: IVP, Q30Min, Dosing Weight 61.364, kg, PRN Other -See Comment, F or shivering, Start date: 10/16/15 12:40:00 CDT, Duration: 2 doses or times, Sto p date: Limited # of times Start Date: 10/16/15 Stop Date: 10/16/15 Status: Discontinued ANES naloxone 0.4 mg, Route: IVP, Q2MIN, Dosing Weight 61.364, kg, PRN Narcotic Reversal, Star t date: 10/16/15 12:40:00 CDT, Duration: 8 doses or times, Stop date: Limited # of times Start Date: 10/16/15 Stop Date: 10/16/15 Status: Discontinued ANES ondansetron 4 mg, Route: IVP, ONCE, Dosing Weight 61.364, kg, PRN Nausea & Vomiting, Start date: 10/16/15 12:40:00 CDT Start Date: 10/16/15 Stop Date: 10/16/15 Status: Discontinued ANES oxyCODONE 10 mg, Route: PO, Drug form: TAB, Q4H, Dosing Weight 61.364, kg, PRN Pain Score 7-10, Start date: 10/16/15 12:40:00 CDT, Duration: 30 day, Stop date: 11/15/15 1 2:39:00 CDT Start Date: 10/16/15 Stop Date: 10/16/15 Status: Discontinued ANES oxyCODONE 5 mg, Route: PO, Drug form: TAB, Q4H, Dosing Weight 61.364, kg, PRN Pain Score 4 -6, Start date: 10/16/15 12:40:00 CDT, Duration: 30 day, Stop date: 11/15/15 12: 39:00 CDT Start Date: 10/16/15 Stop Date: 10/16/15 Status: Discontinued ANES promethazine 6.25 mg, Route: IVPB, ONCE, Dosing Weight 61.364, kg, PRN Nausea & Vomiting, Start date: 10/16/15 12:40:00 CDT Start Date: 10/16/15 Stop Date: 10/16/15 Status: Discontinued clindamycin (ANES) Route: IV, Drug form: INJ, ONCE, Stop date: 10/16/15 12:00:00 CDT Start Date: 10/16/15 Stop Date: 10/16/15 Status: Completed dexamethasone (ANES) Route: IV, Drug form: INJ, ONCE, Stop date: 10/16/15 12:00:00 CDT Start Date: 10/16/15 Stop Date: 10/16/15 Status: Completed fentaNYL (ANES) Route: IV, Drug form: INJ, ONCE, Stop date: 10/16/15 11:55:00 CDT Start Date: 10/16/15 Stop Date: 10/16/15 Status: Completed EVA EVA, PO, Daily, Refill(s) 0 Start Date: 10/09/15 Status: Ordered ketOROLAC (ANES) IV, ONCE Start Date: 10/16/15 Stop Date: 10/16/15 Status: Completed Lactated Ringers Injection IV 1000 mL 1,000 mL, Rate: 25 ml/hr, Infuse over: 40 hr, Route: IV, Dosing Weight 61.364 kg , Total Volume: 1,000, Start date: 10/16/15 10:58:00 CDT, Duration: 30 day, Stop date: 11/15/15 10:57:00 CDT Start Date: 10/16/15 Stop Date: 10/16/15 Status: Discontinued Lactated Ringers Injection IV 1000 mL 1,000 mL, Rate: 125 ml/hr, Infuse over: 8 hr, Route: IV, Dosing Weight 61.364 kg , Total Volume: 1,000, Start date: 10/16/15 12:40:00 CDT, Duration: 30 day, Stop date: 11/15/15 12:39:00 CDT Start Date: 10/16/15 Stop Date: 10/16/15 Status: Discontinued lidocaine (ANES) Route: IV, Drug form: INJ, ONCE, Stop date: 10/16/15 11:55:00 CDT Start Date: 10/16/15 Stop Date: 10/16/15 Status: Completed LR 1000 mL INJ (ANES) Route: IV, Total Volume: 1,000, Start date: 10/16/15 10:54:00 CDT, Stop date: 11:54:00 CDT Start Date: 10/16/15 Stop Date: 10/16/15 Status: Completed meclizine 25 mg oral tablet 25 mg=1 tab, PO, TID, PRN Other-See Comments, # 30 tab, 0 Refill(s) Start Date: 10/09/15 Stop Date: 10/19/15 Status: Ordered multivitamin PO, Daily, 0 Refill(s) Start Date: 10/09/15 Status: Ordered ondansetron (ANES) Route: IV, Drug form: INJ, ONCE, Stop date: 10/16/15 12:00:00 CDT Start Date: 10/16/15 Stop Date: 10/16/15 Status: Completed Probiotic Formula 1 cap, PO, Daily, 0 Refill(s) Start Date: 10/09/15 Status: Ordered propofol (ANES) Route: IV, Drug form: INJ, ONCE, Stop date: 10/16/15 11:55:00 CDT Start Date: 10/16/15 Stop Date: 10/16/15 Status: Completed Sodium Chloride 0.9% IV 500 mL 500 mL, Rate: 25 ml/hr, Infuse over: 20 hr, Route: IV, Dosing Weight 61.364 kg, Total Volume: 500, Start date: 10/16/15 10:58:00 CDT, Duration: 30 day, Stop samuel e: 11/15/15 10:57:00 CDT Start Date: 10/16/15 Stop Date: 10/16/15 Status: Discontinued Sodium Chloride 0.9% IV 500 mL 500 mL, Rate: 125 ml/hr, Infuse over: 4 hr, Route: IV, Dosing Weight 61.364 kg, Total Volume: 500, Start date: 10/16/15 12:40:00 CDT, Duration: 30 day, Stop samuel e: 11/15/15 12:39:00 CDT Start Date: 10/16/15 Stop Date: 10/16/15 Status: Discontinued stool softener stool softener, Daily, Refill(s) 0 Start Date: 10/09/15 Status: Ordered tramadol 50 mg oral tablet 100 mg, Route: PO, Drug form: TAB, ONCE, Dosing Weight 61.364, kg, PRN Pain Scor e 4-6, Start date: 10/16/15 15:54:00 CDT, Stop date: 11/15/15 15:53:00 CDT Start Date: 10/16/15 Stop Date: 10/16/15 Status: Completed tramadol 50 mg oral tablet 50 mg=1 tab, PO, Q6H, PRN Pain, X 10 day, # 20 tab, 0 Refill(s) Start Date: 10/16/15 Stop Date: 10/26/15 Status: Ordered Zofran 4 mg oral tablet 4 mg=1 tab, PO, TID, # 3 tab, 0 Refill(s) Start Date: 10/09/15 Stop Date: 10/10/15 Status: Ordered Results ELECTROLYTES Most recent to 1 oldest [Reference Range]: Sodium Lvl [135-145 138 mEq/L mEq/L] (10/09/15 1:45 PM) Potassium Lvl 3.8 mEq/L [3.5-5.1 mEq/L] (10/09/15 1:45 PM) Chloride Lvl [95-109 104 mEq/L mEq/L] (10/09/15 1:45 PM) CO2 [24-32 mEq/L] 28 mEq/L (10/09/15 1:45 PM) AGAP [10.0-20.0 9.8 mEq/L mEq/L] *LOW* (10/09/15 1:45 PM) CHEM PANEL Most recent to 1 oldest [Reference Range]: Creatinine Lvl 0.61 mg/dL [0.50-1.40 mg/dL] (10/09/15 1:45 PM) eGFR 88 mL/min/1.73m2 1 *NA* (10/09/15 1:45 PM) BUN [7-22 mg/dL] 10 mg/dL (10/09/15 1:45 PM) Glucose Lvl [70-99 88 mg/dL mg/dL] (10/09/15 1:45 PM) Calcium Lvl 8.7 mg/dL [8.5-10.5 mg/dL] (10/09/15 1:45 PM) 1Result Comment: The eGFR is calculated using the [...] be mul tiplied by the estimated BMI. Immunizations Given and Recorded Vaccine Date Status Refusal Reason Hx influenza vaccine-unspecified1 12/08/12 Given influenza virus vaccine, inactivated 02/11/15 Given influenza virus vaccine, inactivated2 02/15/14 Given influenza virus vaccine, inactivated3 11/29/13 Given influenza virus vaccine, inactivated4 12/08/12 Given pneumococcal 13-valent vaccine5 02/15/14 Given pneumococcal 23-valent vaccine6 01/14/12 Given 1Result Comment: done. Migrated from OBS ; Data migrated from [employer] on 04/09/2015. 2Admin Note: had at Drs office in nov 2013 3Result Comment: fluzone high dose [[id number]]. Migrated from OBS ; Data migrated from [employer] on 04/09/2015. 4Result Comment: fluzone (>3 yrs.) [[id number]]. Migrated from OBS ; Data migrated from [employer] on 04/09/2015. 5Admin Note: had at Drs office 2 years ago 6Result Comment: pneumovax. Migrated from OBS ; Data migrated from [employer] on 04/09/2015. Procedures Procedure Date Related Diagnosis Body Site Biopsy of breast1 09/05/15 Mammogram2 08/26/15 Bone density scan 07/23/15 Eye examination3 05/10/15 Echocardiogram4 12/28/14 Endoscopy5 11/21/14 Colonoscopy6 12/2011 Breast lumpectomy 1996 Appendectomy CEIOL - Cataract extraction and insertion of intraocular lens Cholecystectomy Hysterectomy Lithotripsy of gall bladder using fluoroscopic guidance Procedure on thyroid gland 1Right breast invasive [...]
--- OUTSIDE RECORDS SUMMARY | 2018-06-20 07:03 | XMS REPORT | Summary of Care ---
Author Author [facility] Organization [facility] Address Unknown Phone Unavailable Encounter MATT Davis(SKYLA) [phone] Date(s): 10/02/15 - 10/04/15 [facility] [address] [place] [address] [phone] Discharge Disposition: Home or Self Care Attending Physician: Pepper Sam MD Admitting Physician: Pepper Sam MD Vital Signs 1 2 3 Most recent to oldest [Reference Range]: 165.1 cm (10/03/15 4:16 AM) 154.94 cm (10/02/15 8:38 PM) Height 97.5 DegF (10/04/15 12:20 PM) 97.5 DegF (10/04/15 8:35 AM) 98.1 DegF (10/04/15 3:58 AM) Temperature Oral [96.4-99.1 DegF] 129/71 mmHg (10/04/15 12:20 PM) 143/77 mmHg *HI* (10/04/15 8:35 AM) 108/58 mmHg (10/04/15 3:58 AM) Blood Pressure [90-140/60-90 mmHg] 16 BRMIN (10/04/15 12:20 PM) 18 BRMIN (10/04/15 8:35 AM) 18 BRMIN (10/04/15 3:58 AM) Respiratory Rate [14-20 BRMIN] 64 bpm (10/04/15 12:20 PM) 69 bpm (10/04/15 8:35 AM) 63 bpm (10/04/15 3:58 AM) Peripheral Pulse Rate [60-100 bpm] 65.455 kg (10/03/15 4:16 AM) 61.364 kg (10/02/15 8:38 PM) Weight 24.01 m2 (7/28/16 4:16 AM) 25.56 m2 (10/02/15 8:38 PM) Body Mass Index Problem List Condition Effective Dates Status Health Status Informant Breast Active cancer(Confirmed) 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 2Data migrated from [employer] on 09/22/14. 3Data migrated from [employer] on 10/27/14. 4Data migrated from [employer] on 08/04/14. 5Data migrated from [employer] on 08/04/14. 6Data migrated from [employer] on 08/04/14. 7Data migrated from [employer] on 08/04/14. 8Data migrated from [employer] on 08/04/14. 9Data migrated from [employer] on 08/04/14. 10Data migrated from [employer] on 08/04/14. 11Data migrated from [employer] on 08/04/14. Allergies, Adverse Reactions, Alerts Substance Reaction Severity Status midazolam1 Active penicillin Active penicillins2 Active Versed Active 1Data migrated from [employer] on 07/03/14. Originally documented as VERSED. 2Data migrated from [employer] on 10/04/14. Originally documented as PENICILLIN. Medications calcium-vitamin D 500 mg-200 intl units oral tablet 1 tab, Route: PO, Drug Form: TAB, Dosing Weight 65.455, kg, BID-Meals, Start samuel e: 10/03/15 17:00:00 CDT, Duration: 30 day, Stop date: 11/02/15 8:00:00 CDT Notes: (Same As: Keron-D, OsCal-D, Oyster Calcium) Start Date: 10/03/15 Stop Date: 10/04/15 Status: Discontinued Cipro 400 mg, 200 mL, Route: IVPB, Drug form: INJ, [id number], Dosing Weight 61.364, kg, Priority: STAT, Start date: 10/03/15 3:31:00 CDT, Duration: 30 day, Stop date: 0 11/01/15 15:00:00 CDT Notes: Do not refrigerate Start Date: 10/03/15 Stop Date: 10/04/15 Status: Discontinued ciprofloxacin 400 mg, Route: IVPB, ONCE, Dosing Weight 61.364, kg, Priority: STAT, Start date: 10/03/15 1:20:00 CDT, Stop date: 10/03/15 1:20:00 CDT Start Date: 10/03/15 Stop Date: 10/03/15 Status: Completed ciprofloxacin 500 mg oral tablet 500 mg=1 tab, PO, Q12H, X 7 day, # 14 tab, 0 Refill(s) Start Date: 10/04/15 Stop Date: 10/11/15 Status: Ordered Dilantin 100 mg oral capsule, extended release 300 mg, 3 cap, Route: PO, Drug form: ERCAP, Bedtime, Dosing Weight 65.455, kg, S tart date: 10/03/15 9:09:00 CDT, Duration: 30 day, Stop date: 11/01/15 21:00:00 CDT Start Date: 10/03/15 Stop Date: 10/04/15 Status: Discontinued Dilaudid 0.5 mg, 0.5 mL, Route: IV, Drug form: INJ, Q4H, Dosing Weight 61.364, kg, PRN Pa in Score 7-10, Start date: 10/03/15 4:11:00 CDT, Duration: 30 day, Stop date: 4:10:00 CDT Start Date: 10/03/15 Stop Date: 10/04/15 Status: Discontinued enoxaparin 40 mg, 0.4 mL, Route: SUB-Q, Drug form: INJ, [id number], Dosing Weight 65.455, kg, Start date: 10/03/15 9:00:00 CDT, Duration: 30 day, Stop date: 11/01/15 9:00:00 CDT Notes: (Same as: Lovenox) Start Date: 10/03/15 Stop Date: 10/04/15 Status: Discontinued Flagyl 500 mg, 100 mL, Route: IVPB, Drug form: INJ, [id number], Dosing Weight 61.364, kg, P riority: STAT, Start date: 10/03/15 3:31:00 CDT, Duration: 30 day, Stop date: 18:00:00 CDT Notes: (Same as: Flagyl) Avoid alcohol. Start Date: 10/03/15 Stop Date: 10/04/15 Status: Discontinued levothyroxine 100 microgram, 1 tab, Route: PO, Drug form: TAB, Q6AM, Dosing Weight 65.455, kg, Start date: 10/04/15 6:00:00 CDT, Duration: 30 day, Stop date: 11/02/15 6:00:00 CDT Notes: Take 1 hour before or 2 hours after meal; Enteral feeds may interefere wi th the absorption of this medication. (Same as:Levothroid, Synthroid) Start Date: 10/04/15 Stop Date: 10/04/15 Status: Discontinued LORazepam 1 mg, 1 tab, Route: PO, Drug form: TAB, Q8H, Dosing Weight 65.455, kg, PRN Anxie ty, Start date: 10/03/15 8:23:00 CDT, Duration: 30 day, Stop date: 11/02/15 8:22 :00 CDT Notes: (Same as: Ativan) Start Date: 10/03/15 Stop Date: 10/04/15 Status: Discontinued metroNIDAZOLE 500 mg, Route: IVPB, ONCE, Dosing Weight 61.364, kg, Priority: STAT, Start date: 10/03/15 1:20:00 CDT, Stop date: 10/03/15 1:20:00 CDT Start Date: 10/03/15 Stop Date: 10/03/15 Status: Completed metroNIDAZOLE 500 mg oral tablet 500 mg=1 tab, PO, Q8H, X 7 day, # 21 tab, 0 Refill(s) Start Date: 10/04/15 Stop Date: 10/11/15 Status: Ordered morphine Sulfate 4 mg, Route: IVP, Drug form: INJ, ONCE, Dosing Weight 61.364, kg, Priority: STAT , Start date: 10/03/15 2:15:00 CDT, Stop date: 10/03/15 2:15:00 CDT Start Date: 10/03/15 Stop Date: 10/03/15 Status: Completed morphine Sulfate 4 mg, 2 mL, Route: IVP, Drug form: INJ, Q4H, Dosing Weight 61.364, kg, PRN Pain Score 7-10, Start date: 10/03/15 3:31:00 CDT, Duration: 30 day, Stop date: 11/01 3:30:00 CDT Notes: (Same as:MORPhine Sulfate) Start Date: 10/03/15 Stop Date: 10/04/15 Status: Discontinued morphine Sulfate 4 mg, 2 mL, Route: IVP, Drug form: INJ, ONCE, Dosing Weight 61.364, kg, Priority : STAT, Start date: 10/02/15 21:33:00 CDT, Stop date: 10/02/15 21:33:00 CDT Notes: (Same as:MORPhine Sulfate) Start Date: 10/02/15 Stop Date: 10/02/15 Status: Completed ondansetron 4 mg, 2 mL, Route: IVP, Drug form: INJ, Q6H, Dosing Weight 61.364, kg, PRN Nause a & Vomiting, Start date: 10/03/15 3:31:00 CDT, Duration: 30 day, Stop date: 11/02/15 3:30:00 CDT Notes: (Same as: Te) MEDICATION WASTE Product Size: 4 mgProduct Was evan: ___ mg Start Date: 10/03/15 Stop Date: 10/04/15 Status: Discontinued ondansetron 4 mg, 2 mL, Route: IVP, Drug form: INJ, ONCE, Dosing Weight 61.364, kg, Priority : STAT, Start date: 10/02/15 21:33:00 CDT, Stop date: 10/02/15 21:33:00 CDT Notes: (Same as: Zofran) MEDICATION WASTE Product Size: 4 mgProduct Was evan: ___ mg Start Date: 10/02/15 Stop Date: 10/02/15 Status: Completed Pepcid 20 mg, 1 tab, Route: PO, Drug form: TAB, Daily, Start date: 10/03/15 9:00:00 CDT , Duration: 30 day, Stop date: 11/01/15 9:00:00 CDT Notes: (Same as: Pepcid) Start Date: 10/03/15 Stop Date: 10/04/15 Status: Discontinued pneumococcal 13-valent vaccine 0.5 mL, Route: IM, Drug Form: INJ, Daily, Start date: 10/03/15 9:00:00 CDT, Dura tion: 1 doses or times, Stop date: 10/03/15 9:00:00 CDT Notes: Lightly roll vial (DO NOT SHAKE) before administration. (Same as: Prevna r 13) Start Date: 10/03/15 Stop Date: 10/03/15 Status: Completed potassium chloride 40 mEq, 2 tab, Route: PO, Drug form: ERTAB, ONCE, Dosing Weight 65.455, kg, Star t date: 10/04/15 9:35:00 CDT, Stop date: 10/04/15 9:35:00 CDT Notes: (Same as: K-Dur 20)"Do Not Crush" With food and full glass of water Start Date: 10/04/15 Stop Date: 10/04/15 Status: Completed ranitidine 150 mg oral tablet 150 mg, 1 tab, Route: PO, Drug form: TAB, Daily, Dosing Weight 65.455, kg, Start date: 10/03/15 9:00:00 CDT, Duration: 30 day, Stop date: 11/01/15 9:00:00 CDT Start Date: 10/03/15 Stop Date: 10/03/15 Status: Deleted Saline Flush 0.9% 10 ml, Route: IVP, Drug Form: INJ, Dosing Weight 61.364, kg, PRN, PRN Line Flush , Start date: 10/03/15 3:31:00 CDT, Duration: 30 day, Stop date: 11/02/15 3:30:0 0 CDT Notes: (Same as: BD Posiflush) Start Date: 10/03/15 Stop Date: 10/04/15 Status: Discontinued sertraline 50 mg, 1 tab, Route: PO, Drug form: TAB, Daily, Dosing Weight 65.455, kg, Start date: 10/03/15 9:00:00 CDT, Duration: 30 day, Stop date: 11/01/15 9:00:00 CDT Notes: (Same as: Zoloft) Start Date: 10/03/15 Stop Date: 10/04/15 Status: Discontinued Sodium Chloride 0.9% (Bolus) IV 1,000 mL, 2,000 ml/hr, Infuse Over: 30 minutes, Route: IV, 1,000, Drug form: INJ , ONCE, Priority: STAT, Dosing Weight 61.364 kg, Start date: 10/02/15 21:33:00 C DT, Duration: 1 doses or times, Stop date: 10/02/15 21:33:00 CDT Start Date: 10/02/15 Stop Date: 10/02/15 Status: Completed Results ELECTROLYTES 1 2 3 Most recent to oldest [Reference Range]: 141 mEq/L (10/04/15 4:42 AM) 137 mEq/L (10/02/15 10:27 PM) Sodium Lvl [135-145 mEq/L] 3.2 mEq/L *LOW* (10/04/15 4:42 AM) 3.7 mEq/L (10/02/15 10:27 PM) Potassium Lvl [3.5-5.1 mEq/L] 105 mEq/L (10/04/15 4:42 AM) 98 mEq/L (10/02/15 10:27 PM) Chloride Lvl [95-109 mEq/L] 23 mEq/L *LOW* (10/04/15 4:42 AM) 27 mEq/L (10/02/15 10:27 PM) CO2 [24-32 mEq/L] 16.2 mEq/L (10/04/15 4:42 AM) 15.7 mEq/L (10/02/15 10:27 PM) AGAP [10.0-20.0 mEq/L] CHEM PANEL 1 2 3 Most recent to oldest [Reference Range]: 0.68 mg/dL (10/04/15 4:42 AM) 0.71 mg/dL (10/03/15 10:09 AM) 0.85 mg/dL (10/02/15 10:27 PM) Creatinine Lvl [0.50-1.40 mg/dL] 85 mL/min/1.73m2 1 *NA* (10/04/15 4:42 AM) 83 mL/min/1.73m2 2 *NA* (10/03/15 10:09 AM) 66 mL/min/1.73m2 3 *NA* (10/02/15 10:27 PM) eGFR 12 mg/dL (10/04/15 4:42 AM) 16 mg/dL (10/02/15 10:27 PM) BUN [7-22 mg/dL] 19 (10/02/15 10:27 PM) B/C Ratio [6-25] 107 mg/dL *HI* (10/04/15 4:42 AM) 102 mg/dL *HI* (10/02/15 10:27 PM) Glucose Lvl [70-99 mg/dL] 7.7 g/dL (10/02/15 10:27 PM) Total Protein [6.4-8.4 g/dL] 4.3 g/dL (10/02/15 10:27 PM) Albumin Lvl [3.5-5.0 g/dL] 3.4 g/dL (10/02/15 10:27 PM) Globulin [2.0-4.0 g/dL] 1.3 (10/02/15 10:27 PM) A/G Ratio [0.7-1.6] 7.9 mg/dL *LOW* (10/04/15 4:42 AM) 9.4 mg/dL (10/02/15 10:27 PM) Calcium Lvl [8.5-10.5 mg/dL] 3.5 mg/dL (10/04/15 4:42 AM) Phosphorus [2.5-4.5 mg/dL] 1.8 mg/dL (10/04/15 4:42 AM) Magnesium Lvl [1.8-2.4 mg/dL] 54 unit/L (10/02/15 10:27 PM) ALT [0-65 unit/L] 32 unit/L (10/02/15 10:27 PM) AST [0-37 unit/L] 143 unit/L *HI* (10/02/15 10:27 PM) Alk Phos [39-136 unit/L] 0.3 mg/dL (10/02/15 10:27 PM) Bili Total [0.2-1.3 mg/dL] 105 unit/L (10/02/15 10:27 PM) Lipase Lvl [73-393 unit/L] 1Result Comment: The eGFR is calculated using [...] be mul tiplied by the estimated BMI. 2Result Comment: The eGFR is calculated using [...] be mul tiplied by the estimated BMI. CARDIAC ENZYMES 1 2 3 Most recent to oldest [Reference Range]: 59 unit/L (10/02/15 10:27 PM) Total CK [12-191 unit/L] <0.5 ng/mL (10/02/15 10:27 PM) CK MB [0.5-3.6 ng/mL] <0.8 (10/02/15 10:27 PM) CK MB Index [0.0-2.5] <0.02 ng/mL (10/02/15 10:27 PM) Troponin-I [0.00-0.40 ng/mL] TOXICOLOGY 1 2 3 Most recent to oldest [Reference Range]: 0.85 ug/ml *LOW* (10/03/15 10:09 AM) Phenytoin Free [1.00-2.00 ug/ml] URINE AND STOOL 1 2 3 Most recent to oldest [Reference Range]: Clear (10/02/15 11:33 PM) UA Turbidity [Clear] Ltyellow *NA* (10/02/15 11:33 PM) UA Color 8.0 (10/02/15 11:33 PM) UA pH [5.0-8.0] 1.002 (10/02/15 11:33 PM) UA Spec Grav [<=1.030] Negative mg/dL *NA* (10/02/15 11:33 PM) UA Glucose [Negative mg/dL] Negative (10/02/15 11:33 PM) UA Blood [Negative] Negative mg/dL *NA* (10/02/15 11:33 PM) UA Ketones [Negative mg/dL] Negative mg/dL (10/02/15 11:33 PM) UA Protein [Negative mg/dL] <=1.0 mg/dL *NA* (10/02/15 11:33 PM) UA Urobilinogen [0.1-1.0 mg/dL] Negative *NA* (10/02/15 11:33 PM) UA Bili [Negative] Negative (10/02/15 11:33 PM) UA Leuk Est [Negative] Negative (10/02/15 11:33 PM) UA Nitrite [Negative] 1 /HPF (10/02/15 11:33 PM) UA WBC [0-5 /HPF] <1 /HPF (10/02/15 11:33 PM) UA RBC [0-2 /HPF] None Seen *NA* (10/02/15 11:33 PM) UA Sq Epi HEMATOLOGY 1 2 3 Most recent to oldest [Reference Range]: 8.8 K/CMM (10/04/15 4:42 AM) 14.9 K/CMM *HI* (10/02/15 10:27 PM) WBC [3.7-10.4 K/CMM] 4.26 M/CMM (10/04/15 4:42 AM) 4.94 M/CMM (10/02/15 10:27 PM) RBC [4.20-5.40 M/CMM] 13.7 g/dL (10/04/15 4:42 AM) 15.4 g/dL (10/02/15 10:27 PM) Hgb [12.0-16.0 g/dL] 40.0 % (10/04/15 4:42 AM) 46.6 % (10/02/15 10:27 PM) Hct [36.0-48.0 %] 93.9 fL (10/04/15 4:42 AM) 94.4 fL (10/02/15 10:27 PM) MCV [80.0-98.0 fL] 32.1 pg *HI* (10/04/15 4:42 AM) 31.1 pg *HI* (10/02/15 10:27 PM) MCH [27.0-31.0 pg] 34.2 g/dL (10/04/15 4:42 AM) 33.0 g/dL (10/02/15 10:27 PM) MCHC [32.0-36.0 g/dL] 14.2 % (10/04/15 4:42 AM) 14.1 % (10/02/15 10:27 PM) RDW [11.5-14.5 %] 231 K/CMM (10/04/15 4:42 AM) 242 K/CMM (10/03/15 10:09 AM) 266 K/CMM (10/02/15 10:27 PM) Platelet [133-450 K/CMM] 7.2 fL *LOW* (10/04/15 4:42 AM) 8.0 fL (10/02/15 10:27 PM) MPV [7.4-10.4 fL] 64.2 % (10/04/15 4:42 AM) 81.3 % *HI* (10/02/15 10:27 PM) Segs [45.0-75.0 %] 27.6 % (10/04/15 4:42 AM) 13.4 % *LOW* (10/02/15 10:27 PM) Lymphocytes [20.0-40.0 %] 6.8 % (10/04/15 4:42 AM) 4.6 % (10/02/15 10:27 PM) Monocytes [2.0-12.0 %] 0.8 % (10/04/15 4:42 AM) 0.2 % (10/02/15 10:27 PM) Eosinophils [0.0-4.0 %] 0.6 % (10/04/15 4:42 AM) 0.5 % (10/02/15 10:27 PM) Basophils [0.0-1.0 %] 5.6 K/CMM (10/04/15 4:42 AM) 12.2 K/CMM *HI* (10/02/15 10:27 PM) Segs-Bands # [1.5-8.1 K/CMM] 2.4 K/CMM (10/04/15 4:42 AM) 2.0 K/CMM (10/02/15 10:27 PM) Lymphocytes # [1.0-5.5 K/CMM] 0.6 K/CMM (10/04/15 4:42 AM) 0.7 K/CMM (10/02/15 10:27 PM) Monocytes # [0.0-0.8 K/CMM] 0.1 K/CMM (10/04/15 4:42 AM) Eosinophils # [0.0-0.5 K/CMM] 0.1 K/CMM (10/04/15 4:42 AM) 0.1 K/CMM (10/02/15 10:27 PM) Basophils # [0.0-0.2 K/CMM] 14.1 seconds (10/02/15 10:27 PM) PT [12.0-14.7 seconds] 1.06 (10/02/15 10:27 PM) INR [0.85-1.17] 27.6 seconds (10/02/15 10:27 PM) PTT [22.9-35.8 seconds] Immunizations Given and Recorded Vaccine Date Status Refusal Reason Hx influenza vaccine-unspecified1 12/08/12 Given influenza virus vaccine, inactivated 02/11/15 Given influenza virus vaccine, inactivated2 02/15/14 Given influenza virus vaccine, inactivated3 11/29/13 Given influenza virus vaccine, inactivated4 12/08/12 Given pneumococcal 13-valent vaccine5 02/15/14 Given pneumococcal 23-valent vaccine6 01/14/12 Given 1Result Comment: done. Migrated from OBS ; Data migrated from [employer] on 04/09/2015. 2Admin Note: had at Drs office in nov 2013 3Result Comment: fluzone high dose [[id number]]. Migrated from OBS ; Data migrated from [employer] on 04/09/2015. 4Result Comment: fluzone (>3 yrs.) [[id number]]. Migrated from OBS ; Data migrated from [employer] on 04/09/2015. 5Admin Note: had at Drs office 2 years ago 6Result Comment: pneumovax. Migrated from OBS ; Data migrated from [employer] on 04/09/2015. Procedures Procedure Date Related Diagnosis Body Site Biopsy of breast1 09/05/15 Mammogram2 08/26/15 Bone density scan 07/23/15 Eye examination3 05/10/15 Echocardiogram4 12/28/14 Endoscopy5 11/21/14 Colonoscopy6 12/2011 Mastectomy of right breast 1996 Appendectomy Cholecystectomy Hysterectomy Lithotripsy of gall bladder using fluoroscopic guidance 1Right breast invasive lobular carcinoma 2Right breast [...] Plan Extracted from: Title: Clinical Document Author: Gunnar Oleary MD Date: 10/03/15 Patient seen, interviewed, examined at bedside. Detailed consult note to follow.Patient has had colonoscopy by Dr Norton, my associate few months ago, per patient it was reported normal.CT finding on this admission showing diffuse colonic wall thickening, is most likely due to Infectious colitis, less likely ischemic colitis, both of these should resolve with conservative managment and supportive care, IV fluids, PPI, abx, and antiemetics, avoid NSAIDs. Abdominal exam is quite benign. Plan: Advance to regular diet Montior clinically, check white count in AM. Will obtain colonoscopy report from our office.
--- OUTSIDE RECORDS SUMMARY | 2018-06-20 07:03 | XMS REPORT | Summary of Care ---
Author Author [facility] Organization [facility] Address Unknown Phone Unavailable Encounter HQ Ryan(FIN) [id number] Date(s): 04/08/18 - 04/08/18 [facility] [address], [address] [place], [place] [address]- [phone] Discharge Disposition: Home or Self Care Attending Physician: Melissa Griffin MD Vital Signs Most recent to 1 oldest [Reference Range]: Height 157.48 cm (04/08/18 10:44 AM) Temperature Oral 97.3 DegF [96.4-99.1 DegF] (04/08/18 10:44 AM) Blood Pressure 126/77 mmHg [90-140/60-90 mmHg] (04/08/18 10:44 AM) Respiratory Rate 16 BRMIN [14-20 BRMIN] (04/08/18 10:44 AM) Peripheral Pulse 77 bpm Rate [60-100 bpm] (04/08/18 10:44 AM) Weight 58.182 kg (04/08/18 10:44 AM) Body Mass Index 23.46 m2 (04/08/18 10:44 AM) Problem List Condition Effective Dates Status [...] nov 2013 4Result Comment: fluzone high dose [[id number]]. Migrated from OBS ; Data migrated from [employer] on 04/09/2015. 5Result Comment: fluzone (>3 yrs.) [[id number]]. Migrated from OBS ; Data migrated from [...]
--- OUTSIDE RECORDS SUMMARY | 2018-06-20 07:03 | XMS REPORT | Summary of Care ---
Author Author [facility] Organization [facility] Address Unknown Phone Unavailable Encounter MATT Davis(SKYLA) [id number] Date(s): 02/03/16 - 02/03/16 [facility] [address] [place] [address]- [phone] Discharge Disposition: Home or Self Care Attending Physician: Abhijit Ballesteros MD Referring Physician: Abhijit Ballesteros MD Vital Signs 1 2 3 Most recent to oldest [Reference Range]: 154.94 cm (01/29/16 3:03 PM) Height 98 DegF (01/29/16 3:18 PM) Temperature Oral [96.4-99.1 DegF] 104/53 mmHg (02/03/16 1:15 PM) 117/55 mmHg (02/03/16 1:00 PM) 109/49 mmHg (02/03/16 12:45 PM) Blood Pressure [90-140/60-90 mmHg] 40 BRMIN *HI* (02/03/16 1:15 PM) 12 BRMIN *LOW* (02/03/16 1:00 PM) 12 BRMIN *LOW* (02/03/16 12:45 PM) Respiratory Rate [14-20 BRMIN] 65 bpm (01/29/16 3:18 PM) Peripheral Pulse Rate [60-100 bpm] 62.182 kg (01/29/16 3:03 PM) Weight 25.9 m2 (01/29/16 3:03 PM) Body Mass Index Problem List Condition Effective Dates Status Health Status Informant Anxiety(Confirmed) Active Breast Active cancer(Confirmed)1 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 Colitis(Confirmed)3 Resolved Conjunctivitis4 01/02/13 Resolved Depression(Confirmed Active ) Dizziness5 10/02/14 Active Gastritis(Confirmed) Active GERD - Active Gastro-esophageal reflux disease(Confirmed) H/O squamous cell Resolved carcinoma of skin(Confirmed) Hypertriglyceridemia Active (Confirmed) Hypothyroid(Confirme Active d) Hypothyroidism(Confi Active rmed)6 Impaired fasting Active glycaemia7 Irritable bowel Active syndrome8 Recurrent cancer of Active right breast.(Confirmed) Mixed anxiety and 12/08/12 Active depressive disorder(Confirmed)9 Motion Active sickness(Confirmed) [id number] 06/06/13 Active Osteoporosis(Confirm Active ed) Osteoporosis(Confirm Active ed) Overactive Active bladder(Confirmed) Recurrent cyst of Active breast(Confirmed)11 Seizure [id number] Active Thggtonc86 06/06/13 Active Vitamin D 08/09/13 Active [id number] 1previous right breast cancer 2Data migrated from [...] form: INJ, ONCE, Stop date: 02/03/16 12:01:00 OIL BOILER Start Date: 02/03/16 Stop Date: 02/03/16 Status: Completed ANES flumazenil 0.2 mg, Route: IVP, PRN, Dosing Weight 62.182, kg, PRN Benzodiazepine Reversal, Initial dose, Start date: 02/03/16 12:21:00 OIL BOILER, Duration: 30 day, Stop date: 12:20:00 OIL BOILER Start Date: 02/03/16 Stop Date: 02/04/16 Status: Discontinued ANES labetalol 10 mg, Route: IVP, Q5Min, Dosing Weight 62.182, kg, PRN Elevated BP, Start date: 02/03/16 12:21:00 OIL BOILER, Duration: 5 doses or times, Stop date: Limited # of times Start Date: 02/03/16 Stop Date: 02/04/16 Status: Discontinued ANES morphine Sulfate 2 mg, Route: IVP, Q5Min, Dosing Weight 62.182, kg, PRN Pain Score 4-6, Start samuel e: 02/03/16 12:21:00 OIL BOILER, Duration: 5 doses or times, Stop date: Limited # of ti mes Start Date: 02/03/16 Stop Date: 02/04/16 Status: Discontinued ANES naloxone 0.4 mg, Route: IVP, Q2MIN, Dosing Weight 62.182, kg, PRN Narcotic Reversal, Star t date: 02/03/16 12:21:00 OIL BOILER, Duration: 8 doses or times, Stop date: Limited # of times Start Date: 02/03/16 Stop Date: 02/04/16 Status: Discontinued ANES ondansetron 4 mg, Route: IVP, ONCE, Dosing Weight 62.182, kg, PRN Nausea & Vomiting, Start date: 02/03/16 12:21:00 OIL BOILER Start Date: 02/03/16 Stop Date: 02/03/16 Status: Completed fentaNYL (ANES) Route: IV, Drug form: INJ, ONCE, Stop date: 02/03/16 11:55:00 OIL BOILER Start Date: 02/03/16 Stop Date: 02/03/16 Status: Completed glycopyrrolate (ANES) Route: IV, Drug form: INJ, ONCE, Stop date: 02/03/16 12:01:00 OIL BOILER Start Date: 02/03/16 Stop Date: 02/03/16 Status: Completed Lactated Ringers Injection IV 1000 mL 1,000 mL, Rate: 25 ml/hr, Infuse over: 40 hr, Route: IV, Dosing Weight 62.182 kg , Total Volume: 1,000, Start date: 02/03/16 11:34:00 OIL BOILER, Duration: 30 day, Stop date: 03/04/16 11:33:00 OIL BOILER Start Date: 02/03/16 Stop Date: 02/03/16 Status: Discontinued lidocaine (ANES) Route: IV, Drug form: INJ, ONCE, Stop date: 02/03/16 11:55:00 OIL BOILER Start Date: 02/03/16 Stop Date: 02/03/16 Status: Completed LR 1000 mL INJ (ANES) Route: IV, Total Volume: 1,000, Start date: 02/03/16 11:00:00 OIL BOILER, Stop date: 12:00:00 OIL BOILER Start Date: 02/03/16 Stop Date: 02/03/16 Status: Completed neostigmine (ANES) Route: IV, Drug form: INJ, ONCE, Stop date: 02/03/16 12:01:00 OIL BOILER Start Date: 02/03/16 Stop Date: 02/03/16 Status: Completed ondansetron (ANES) Route: IV, Drug form: INJ, ONCE, Stop date: 02/03/16 12:01:00 OIL BOILER Start Date: 02/03/16 Stop Date: 02/03/16 Status: Completed propofol (ANES) Route: IV, Drug form: INJ, ONCE, Stop date: 02/03/16 11:55:00 OIL BOILER Start Date: 02/03/16 Stop Date: 02/03/16 Status: Completed rocuronium (ANES) Route: IV, Drug form: INJ, ONCE, Stop date: 02/03/16 11:55:00 OIL BOILER Start Date: 02/03/16 Stop Date: 02/03/16 Status: Completed Results No data available for [...] Migrated from OBS ; Data migrated from [employer] on 04/09/2015. 2Admin Note: had at Drs office in nov 2013 3Result Comment: fluzone high dose [[id number]]. Migrated from OBS ; Data migrated from [employer] on 04/09/2015. 4Result Comment: fluzone (>3 yrs.) [[id number]]. Migrated from OBS ; Data migrated from [employer] on 04/09/2015. 5Admin Note: had at Drs office 2 years ago 6Result Comment: pneumovax. Migrated from OBS ; Data migrated from [employer] on 04/09/2015. Procedures Procedure Date Related Diagnosis Body Site Breast lumpectomy 11/2015 Biopsy of breast1 09/05/15 Mammogram2 08/26/15 Bone density scan 07/23/15 Eye examination3 05/10/15 Echocardiogram4 12/28/14 Endoscopy5 11/21/14 Colonoscopy6 12/2011 Appendectomy CEIOL - Cataract extraction and insertion [...]
--- OUTSIDE RECORDS SUMMARY | 2018-06-20 07:03 | XMS REPORT | Summary of Care ---
Author Author [facility] Organization [facility] Address Unknown Phone Unavailable Encounter [facility](FIN) [id number] Date(s): 05/24/18 - 05/25/18 [facility] [address] [address]- Vital Signs No data available for this [...] nov 2013 4Result Comment: fluzone high dose [[id number]]. Migrated from OBS ; Data migrated from [employer] on 04/09/2015. 5Result Comment: fluzone (>3 yrs.) [[id number]]. Migrated from OBS ; Data migrated from [...]
--- OUTSIDE RECORDS SUMMARY | 2018-06-20 07:04 | XMS REPORT ---
Author Author HANK BRAGA [employer] Address Unknown Phone Unavailable Care Team Providers Care Fac Engineer Name Role Phone HANK BRAGA Unavailable Encounters Encounter Location Date Unknown [facility] Jan 28, 2016 Summary Purpose [employer]ClinicalWorks Submission
--- OUTSIDE RECORDS SUMMARY | 2018-06-20 07:04 | XMS REPORT ---
Author Author HANK BRAGA Organization [employer] Address Unknown Phone Unavailable Care Team Providers Care Flatwork Feeder Name Role Phone HANK BRAGA CP Unavailable Allergies No Known Allergies Problems No Known Problems Medications No Known Medications Results No Known Results Summary Purpose [employer] Submission
--- OUTSIDE RECORDS SUMMARY | 2018-06-20 07:04 | XMS REPORT ---
Author Author Jam Cuadra Organization [employer] Address Unknown Phone Unavailable Care Team Providers Care Slitter Creaser Slotter Helper Name Role Phone Jam Cuadra CP Unavailable Allergies No Known Allergies Problems Problem Type Condition Code Onset Dates Condition Status Problem Osteoporosis M81.0 Active Problem Vitamin D deficiency E55.9 Active Medications No Known Medications Results No Known Results Summary Purpose [employer] Submission
--- OUTSIDE RECORDS SUMMARY | 2018-06-20 07:04 | XMS REPORT ---
Author Author Trevor Blake Organization [employer] Address Unknown Phone Unavailable Care Team Providers Care Technical Sales Consultant Name Role Phone Trevor Blake CP Unavailable Allergies No Known Allergies Problems Problem Type Condition Code Onset Dates Condition Status Problem Osteoporosis M81.0 Active Problem Vitamin D deficiency E55.9 Active Assessment Osteoporosis M81.0 Active Medications Medication Code System Code Instructions Start Date End Date Status Dosage Prolia [facility] [id number] 60 MG/ML Subcutaneous q 6 months Dec 13, 2017 Active as directed Results No Known Results Summary Purpose [employer] Submission
--- OUTSIDE RECORDS SUMMARY | 2018-06-20 07:04 | XMS REPORT | Summary of Care ---
Author Author [facility] Organization [facility] Address Unknown Phone Unavailable Encounter MATT Davis(SKYLA) [id number] Date(s): 04/01/16 - 04/01/16 [facility] [address] [place] [address]- Discharge Disposition: Home or Self Care Attending Physician: Sidra Fox MD Referring Physician: Sidra Fox MD Vital Signs 1 2 3 Most recent to oldest [Reference Range]: 154.94 cm (03/31/16 9:53 AM) Height 97.8 DegF (03/31/16 9:54 AM) Temperature Oral [96.4-99.1 DegF] 121/62 mmHg (04/01/16 3:00 PM) 131/62 mmHg (04/01/16 2:15 PM) 128/59 mmHg (04/01/16 2:00 PM) Blood Pressure [90-140/60-90 mmHg] 14 BRMIN (04/01/16 3:00 PM) 14 BRMIN (04/01/16 2:15 PM) 16 BRMIN (04/01/16 2:00 PM) Respiratory Rate [14-20 BRMIN] 68 bpm (04/01/16 10:36 AM) 63 bpm (03/31/16 9:54 AM) Peripheral Pulse Rate [60-100 bpm] 61.989 kg (03/31/16 9:53 AM) Weight 25.82 m2 (03/31/16 9:53 AM) Body Mass Index Problem List Condition [...] 12/08/12 Active depressive disorder(Confirmed)9 Motion Active sickness(Confirmed) [id number] 06/06/13 Active Osteoporosis(Confirm Active ed) Osteoporosis(Confirm Active ed) Overactive Active bladder(Confirmed) Recurrent cyst of Active breast(Confirmed)11 Seizure [id number] Active [id number] 06/06/13 Active Vitamin D 08/09/13 Active [id number] 1previous right breast cancer 2Data migrated from [...] on 10/04/14. Originally documented as PENICILLIN. Medications acetaminophen-codeine #3 1 tab, Route: PO, Drug Form: TAB, Dosing Weight 61.989, kg, Q4H, PRN Pain Score 4-6, Start date: 04/01/16 13:14:00 GENERAL SUPERINTENDENT, Duration: 30 day, Stop date: 05/01/16 13 :13:00 GENERAL SUPERINTENDENT Start Date: 04/01/16 Stop Date: 04/02/16 Status: Discontinued ANES acetaminophen 1,000 mg, Route: PO, Drug form: TAB, ONCE, Dosing Weight 61.989, kg, PRN Pain Sc ore 1-3, Start date: 04/01/16 13:08:00 GENERAL SUPERINTENDENT, Duration: 1 doses or times, Stop samuel e: Limited # of times Start Date: 04/01/16 Stop Date: 04/02/16 Status: Discontinued ANES albuterol 0.083% inhalation solution 2.49 mg, Route: NEB, Q20Min, Dosing Weight 61.989, kg, PRN Wheezing, Priority: S TAT, Start date: 04/01/16 13:08:00 GENERAL SUPERINTENDENT, Duration: 30 day, Stop date: 05/01/16 13 :07:00 GENERAL SUPERINTENDENT Start Date: 04/01/16 Stop Date: 04/02/16 Status: Discontinued ANES diphenhydrAMINE 12.5 mg, Route: IVP, Drug form: INJ, Q6H, Dosing Weight 61.989, kg, PRN Itching, Start date: 04/01/16 13:08:00 GENERAL SUPERINTENDENT, Duration: 30 day, Stop date: 05/01/16 13:07: 00 GENERAL SUPERINTENDENT Start Date: 04/01/16 Stop Date: 04/02/16 Status: Discontinued ANES esmolol 10 mg, Route: IVP, Q5Min, Dosing Weight 61.989, kg, PRN Other -See Comment, Star t date: 04/01/16 13:08:00 GENERAL SUPERINTENDENT, Duration: 5 doses or times, Stop date: Limited # of times Start Date: 04/01/16 Stop Date: 04/02/16 Status: Discontinued ANES fentaNYL 25 microgram, Route: IVP, Q5Min, Dosing Weight 61.989, kg, PRN Pain Score 4-6, P riority: Routine, Start date: 04/01/16 13:08:00 GENERAL SUPERINTENDENT, Duration: 4 doses or times, Stop date: Limited # of times Start Date: 04/01/16 Stop Date: 04/02/16 Status: Discontinued ANES flumazenil 0.2 mg, Route: IVP, PRN, Dosing Weight 61.989, kg, PRN Benzodiazepine Reversal, Initial dose, Start date: 04/01/16 13:08:00 GENERAL SUPERINTENDENT, Duration: 30 day, Stop date: 13:07:00 GENERAL SUPERINTENDENT Start Date: 04/01/16 Stop Date: 04/02/16 Status: Discontinued ANES hydrALAZINE 10 mg, Route: IVP, Q20Min, Dosing Weight 61.989, kg, PRN Elevated BP, Start date : 04/01/16 13:08:00 GENERAL SUPERINTENDENT, Duration: 2 doses or times, Stop date: Limited # of lory es Start Date: 04/01/16 Stop Date: 04/02/16 Status: Discontinued ANES HYDROmorphone 0.5 mg, Route: IVP, Q5Min, Dosing Weight 61.989, kg, PRN Pain Score 7-10, Start date: 04/01/16 13:08:00 GENERAL SUPERINTENDENT, Duration: 4 doses or times, Stop date: Limited # of times Start Date: 04/01/16 Stop Date: 04/02/16 Status: Discontinued ANES labetalol 10 mg, Route: IVP, Q5Min, Dosing Weight 61.989, kg, PRN Elevated BP, Start date: 04/01/16 13:08:00 GENERAL SUPERINTENDENT, Duration: 5 doses or times, Stop date: Limited # of times Start Date: 04/01/16 Stop Date: 04/02/16 Status: Discontinued ANES meperidine 12.5 mg, Route: IVP, Q30Min, Dosing Weight 61.989, kg, PRN Other -See Comment, F or shivering, Start date: 04/01/16 13:08:00 GENERAL SUPERINTENDENT, Duration: 2 doses or times, Sto p date: Limited # of times Start Date: 04/01/16 Stop Date: 04/02/16 Status: Discontinued ANES naloxone 0.4 mg, Route: IVP, Q2MIN, Dosing Weight 61.989, kg, PRN Narcotic Reversal, Star t date: 04/01/16 13:08:00 GENERAL SUPERINTENDENT, Duration: 8 doses or times, Stop date: Limited # of times Start Date: 04/01/16 Stop Date: 04/02/16 Status: Discontinued ANES ondansetron 4 mg, Route: IVP, ONCE, Dosing Weight 61.989, kg, PRN Nausea & Vomiting, Start date: 04/01/16 13:08:00 GENERAL SUPERINTENDENT Start Date: 04/01/16 Stop Date: 04/01/16 Status: Completed ANES oxyCODONE 5 mg, Route: PO, Drug form: TAB, Q4H, Dosing Weight 61.989, kg, PRN Pain Score 4 -6, Start date: 04/01/16 13:08:00 GENERAL SUPERINTENDENT, Duration: 30 day, Stop date: 05/01/16 13: 07:00 GENERAL SUPERINTENDENT Start Date: 04/01/16 Stop Date: 04/02/16 Status: Discontinued ANES oxyCODONE 10 mg, Route: PO, Drug form: TAB, Q4H, Dosing Weight 61.989, kg, PRN Pain Score 7-10, Start date: 04/01/16 13:08:00 GENERAL SUPERINTENDENT, Duration: 30 day, Stop date: 05/01/16 1 3:07:00 GENERAL SUPERINTENDENT Start Date: 04/01/16 Stop Date: 04/02/16 Status: Discontinued ceFAZolin (ANES) Route: IV, Drug form: INJ, ONCE, Stop date: 04/01/16 13:09:00 GENERAL SUPERINTENDENT Start Date: 04/01/16 Stop Date: 04/01/16 Status: Completed dexamethasone (ANES) Route: IV, Drug form: INJ, ONCE, Stop date: 04/01/16 13:09:00 GENERAL SUPERINTENDENT Start Date: 04/01/16 Stop Date: 04/01/16 Status: Completed fentaNYL (ANES) Route: IV, Drug form: INJ, ONCE, Stop date: 04/01/16 13:09:00 GENERAL SUPERINTENDENT Start Date: 04/01/16 Stop Date: 04/01/16 Status: Completed Lactated Ringers Injection IV 1000 mL 1,000 mL, Rate: 25 ml/hr, Infuse over: 40 hr, Route: IV, Dosing Weight 61.989 kg , Total Volume: 1,000, Start date: 04/01/16 10:34:00 GENERAL SUPERINTENDENT, Duration: 30 day, Stop date: 05/01/16 10:33:00 GENERAL SUPERINTENDENT Start Date: 04/01/16 Stop Date: 04/02/16 Status: Discontinued levothyroxine 100 mcg (0.1 mg) oral tablet 100 microgram=1 tab, PO, Daily, # 90 tab, 1 Refill(s) Start Date: 03/31/16 Status: Ordered lidocaine (ANES) Route: IV, Drug form: INJ, ONCE, Stop date: 04/01/16 13:09:00 GENERAL SUPERINTENDENT Start Date: 04/01/16 Stop Date: 04/01/16 Status: Completed LR 1000 mL INJ (ANES) Route: IV, Total Volume: 1,000, Start date: 04/01/16 12:20:00 GENERAL SUPERINTENDENT, Stop date: 13:20:00 GENERAL SUPERINTENDENT Start Date: 04/01/16 Stop Date: 04/01/16 Status: Completed omeprazole 40 mg oral delayed release capsule 40 mg=1 cap, PO, Daily, # 90 cap, 0 Refill(s) Start Date: 03/31/16 Status: Ordered ondansetron (ANES) Route: IV, Drug form: INJ, ONCE, Stop date: 04/01/16 13:09:00 GENERAL SUPERINTENDENT Start Date: 04/01/16 Stop Date: 04/01/16 Status: Completed Radha-Colace 2 tab, PO, Dinner, 0 Refill(s) Start Date: 03/31/16 Status: Ordered phenylephrine (ANES) Route: IV, Drug form: INJ, ONCE, Stop date: 04/01/16 13:09:00 GENERAL SUPERINTENDENT Start Date: 04/01/16 Stop Date: 04/01/16 Status: Completed propofol (ANES) Route: IV, Drug form: INJ, ONCE, Stop date: 04/01/16 13:09:00 GENERAL SUPERINTENDENT Start Date: 04/01/16 Stop Date: 04/01/16 Status: Completed Tylenol with Codeine #3 oral tablet 1 - 2 tab, PO, Q4H, PRN Pain, X 4 day, # 36 tab, 0 Refill(s) Start Date: 04/01/16 Stop Date: 04/05/16 Status: Ordered Results ELECTROLYTES Most recent to 1 oldest [Reference Range]: Sodium Lvl [135-145 139 mEq/L mEq/L] (03/31/16 10:40 AM) Potassium Lvl 3.9 mEq/L [3.5-5.1 mEq/L] (03/31/16 10:40 AM) Chloride Lvl [95-109 105 mEq/L mEq/L] (03/31/16 10:40 AM) CO2 [24-32 mEq/L] 26 mEq/L (03/31/16 10:40 AM) AGAP [10.0-20.0 11.9 mEq/L mEq/L] (03/31/16 10:40 AM) CHEM PANEL Most recent to 1 oldest [Reference Range]: Creatinine Lvl 0.72 mg/dL [0.50-1.40 mg/dL] (03/31/16 10:40 AM) eGFR 82 mL/min/1.73m2 1 *NA* (03/31/16 10:40 AM) BUN [7-22 mg/dL] 9 mg/dL (03/31/16 10:40 AM) Glucose Lvl [70-99 105 mg/dL mg/dL] *HI* (03/31/16 10:40 AM) Calcium Lvl 8.7 mg/dL [8.5-10.5 mg/dL] (03/31/16 10:40 AM) 1Result Comment: The eGFR is calculated using [...] be mul tiplied by the estimated BMI. HEMATOLOGY Most recent to 1 oldest [Reference Range]: WBC [3.7-10.4 K/CMM] 6.8 K/CMM (03/31/16 10:40 AM) RBC [4.20-5.40 4.70 M/CMM M/CMM] (03/31/16 10:40 AM) Hgb [12.0-16.0 g/dL] 15.0 g/dL (03/31/16 10:40 AM) Hct [36.0-48.0 %] 44.6 % (03/31/16 10:40 AM) MCV [80.0-98.0 fL] 94.9 fL (03/31/16 10:40 AM) MCH [27.0-31.0 pg] 32.0 pg *HI* (03/31/16 10:40 AM) MCHC [32.0-36.0 33.7 g/dL g/dL] (03/31/16 10:40 AM) RDW [11.5-14.5 %] 13.6 % (03/31/16 10:40 AM) Platelet [133-450 260 K/CMM K/CMM] (03/31/16 10:40 AM) MPV [7.4-10.4 fL] 7.4 fL (03/31/16 10:40 AM) Segs [45.0-75.0 %] 54.6 % (03/31/16 10:40 AM) Lymphocytes 38.1 % [20.0-40.0 %] (03/31/16 10:40 AM) Monocytes [2.0-12.0 5.7 % %] (03/31/16 10:40 AM) Eosinophils [0.0-4.0 0.9 % %] (03/31/16 10:40 AM) Basophils [0.0-1.0 0.7 % %] (03/31/16 10:40 AM) Segs-Bands # 3.7 K/CMM [1.5-8.1 K/CMM] (03/31/16 10:40 AM) Lymphocytes # 2.6 K/CMM [1.0-5.5 K/CMM] (03/31/16 10:40 AM) Monocytes # [0.0-0.8 0.4 K/CMM K/CMM] (03/31/16 10:40 AM) Eosinophils # 0.1 K/CMM [0.0-0.5 K/CMM] (03/31/16 10:40 AM) Basophils # [0.0-0.2 0.1 K/CMM K/CMM] (03/31/16 10:40 AM) Immunizations Given and Recorded Vaccine Date Status Refusal Reason Hx influenza vaccine-unspecified1 12/08/12 Given influenza virus vaccine, inactivated 02/11/15 Given influenza virus vaccine, inactivated2 02/15/14 Given influenza virus vaccine, inactivated3 11/29/13 Given influenza virus vaccine, inactivated4 12/08/12 Given pneumococcal 13-valent vaccine5 02/15/14 Given pneumococcal 23-valent vaccine6 01/14/12 Given 1Result Comment: done. Migrated from OBS ; Data migrated from [employer] on 04/09/2015. 2Admin Note: had at Drs office in nov 2013 3Result Comment: fluzone high dose [[id number]]. Migrated from OBS ; Data migrated from [employer] on 04/09/2015. 4Result Comment: fluzone (>3 yrs.) [[id number]]. Migrated from OBS ; Data migrated from [employer] on 04/09/2015. 5Admin Note: had at Drs office 2 years ago 6Result Comment: pneumovax. Migrated from OBS ; Data migrated from [employer] on 04/09/2015. Procedures Procedure Date Related Diagnosis [...] None. Alcohol Never Smoking Status Never smoker; Ready to change: No; Concerns about tobacco use in household: No; Exposure to Tobacco Smoke None; Cigarette Smoking Last 365 Days No; Reg Smoking Cessation Counseling No Assessment and Plan Extracted from: Title: Clinical Document Author: Sidra Fox MD Date: 04/01/16 OPERATIVE REPORT DATE OF PROCEDURE:04/01/16 PREOPERATIVE DIAGNOSIS: Right breast cancer POSTOPERATIVE DIAGNOSIS: Same TITLE OF THE OPERATION: Ultrasound guided right internal jugular central venous port placement SURGEON(s):Sidra Fox MD ANESTHESIA: General COMPLICATIONS: None FINDINGS: Patent RIJ. Port at SVC/atrial junction on completion X-ray. Port flushed and withdrew easily. Wound class: clean EBL; 10mls Implants: 8Fr single lumen low profile port DETAILS OF PROCEDURE: Patient was identified and brought to the operating room by anesthesia. SCDs were placed for DVT prophylaxis. Kefzol was given 30 minutes prior to incision. The patient was positioned supine on the operating room table and prepped and draped in a sterile manner. A surgical pause was performed. Ultrasound was used to confirm patency of the right internal jugular vein. 0.25% marcaine with epinephrine was injected over the proposed cannulation site. The right IJ was cannulated and a J wire was introduced. Spot X-ray demonstrated proper position of the wire. I then marked the area for the port and created a subcutaneous pocket above the pectoral fascia. I then placed my 3-0 prolone stay sutures on the medial inferior, and lateral sites of the port and tagged them. A counter incision was made at the site of the wire and the catheter was tunneled from the port pocket to the counter incision on the neck. The catheter was attached to the port and port was secured to the pectoral fascia by tying the stay sutures. I then measured the appropriate lenght of the the catheter to ensure adequate placement at the SVC/atrial junction by aligning the catheter along the trajectory of the wire and then divided the cathter there. The dilator was the inserted over the wire using Seldinger technique and the cathteter was inserted through the breakaway catheter. X-ray confirmed proper position of the catheter. I then accessed the port with the soliman needle which withdrew well and the flushed it with 5cc of heparinized saline. The skin over the port site was then closed with interrupted 3-0 deep dermal vicryl sutures followed by a running 4-0 monocryl subcuticular suture. Dermabond was then applied. There were no complications. All sponge and needle counts were correct at the end of the case. The patient was transferred to the PACU in stable condition.
--- OUTSIDE RECORDS SUMMARY | 2018-06-20 07:04 | XMS REPORT ---
Author Author HANK BRAGA Organization [employer] Address Unknown Phone Unavailable Care Team Providers Care Play Therapist Name Role Phone HANK BRAGA CP Unavailable Allergies No Known Allergies Problems No Known Problems Medications No Known Medications Results No Known Results Summary Purpose [employer] Submission
--- OUTSIDE RECORDS SUMMARY | 2018-06-20 07:04 | XMS REPORT ---
Author Author [facility] Address Unknown Phone Unavailable Care Team Providers Care Webbing Inspector Name Role Phone Jose Francisco FREEMAN Unavailable Unavailable Problems This patient has no known problems. Allergies, Adverse Reactions, Alerts This patient has no known allergies or adverse reactions. Medications This patient has no known medications. Results Test Description Test Time Test Comments Text Results Atomic Results Result Comments CHEST 2 VIEWS 2018-06-17 10:56:00 [place] [address] Patient Name: HERBERT KAY MR #: [id number] : 1940 Age/Sex: 78/F Req #: [id number] [facility] Physician: Ordered by: JESSIE FREEMAN MD Report #: [id number] Location: OR Room/Bed: Procedure: [id number] DX/CHEST 2 VIEWS Exam Date: 06/17/18 Exam Time: 1024 REPORT STATUS: Signed EXAMINATION: CHEST 2 VIEWS INDICATION: Pre-op radi ograph. COMPARISON: None FINDINGS: TUBES and LINES: None. LUNGS: Lungs are well inflated. There is no evidence of pneumonia or pulmonary edema. PLEURA: No pleural effusion or pneumothorax. HEART AND MEDIASTINUM: The cardiomediastinal silhouette is unremarkable. BONES AND SOFT TISSUES: No acute osseous abnormality. Status post right mastectomy. Right axillary surgical clips. UPPER ABDOMEN: No free air under the diaphragm. IMPRESSION: No acute radiographic abnormality. Signed by: Dr. Patricia Ramsey MD on 06/17/2018 10:58 AM Dictated By: PATRICIA RAMSEY MD 57 Transcribed By: FANTASMA on 06/17/181057 COPY TO: JESSIE FREEMAN MD MRI Breast Bilateral w/wo contrast 2018-05-18 09:10:10 Addendum created at 06/14/2018 2:51:43 PM:COMPARISON: Prior breast imaging has become available for comparison: Mammograms March 2009, April 2010, April 2011, May 2012, June 2013, July 2014, July 2015, August 1999, February 2017, March 2018 and April 2018. Ultrasound-guided left axillary lymph node biopsy April 2018 at outside facility with malignant metastatic ductal carcinoma pathology results.FINDINGS:Right breast: The patient is status post right complete mastectomy. There is 32 mm transverse by 8 mm deep mixed enhancement at the mastectomy site scar and chest wall. Enhancement is nonspecific and may represent fat necrosis, benign granulation tissue, however, recurrence cannot be excluded.Left breast: There is mild background parenchymal enhancement left breast. 1. In the left axilla, there is enlarged 13 x 8 mm axillary lymph node seen best on axial slice number 100. This has rapid wash in and washout. This corresponds with recently ultrasound-guided biopsy of enlarged lymph node with malignant concordant pathology results.2. Left upper outer quadrant, posterior depth 1 o clock approximately 6 cm from the nipple, there is 5 mm homogeneously enhancing mass. This corresponds with partially calcified degenerating fibroadenoma best seen mammographically.3. 4 mm oval enhancing mass 6 o clock posterior depth breast adjacent to a blood vessel corresponds with a partially c alcified fibroadenoma seen best mammographically. This demonstrates rapid wash in and washout.No right or left internal mammary adenopathy. No right axillary adenopathy.IMPRESSION:1. enhancing masses left 6 o clock, left 1 o clock correspond with degenerating fibroadenomata best seen mammographically. 2. Enlarged left axillary lymph node corresponds with recently biopsied malignant concordant lymph node.3. Enhancement at the right mastectomy scar site/chest wall may represent fat necrosis versus recurrence.Recommendation:Clinical follow-up of the known left axillary lynsey metastasis:1. Enlarged left axillary lymph node correlates with recent ultrasound guided biopsy of enlarged lymph node with malignant pathology results.2. Circumscribed sub-centimeter enhancing masses in the left 1 o clock and 6 o clock breast correspond with degenerating fibroadenomata best seen mammographically.3. Nonspecific enhancement right mastectomy chest wall site may represent granulation tissue versus recurrence. Clinical correlation is recommended.BIRADS 6: Known malignancy in left axillary lymph node. Known right mastectomy bed. For internal use only. C:XAddendum by: SHANI BaxterLINICAL INDICATION: Z85.3 Personal history of malignant neoplasm of breast C77.3 Sec and unsp malig neoplasm of axilla and upper limb nodes. History of right mastectomy .MODALITY: Avanto 1.5 [place] 18 channel MRITECHNIQUE: In-vivo 15 channel dedicated breast coil is used for imaging purposes with patient prone. Imaging is performed on the ACR accredited Siemens Avanto. Pre-contrast imaging including T1, STIR and T2 acquisitions initially performed. Contrast is administered and dynamic sequences are obtained at 67 second intervals over 6 minutes. Post contrast sagittal imaging is performed. Post-processing with MIP and 3-D depiction performed. Quantitative analysis is then accomplished with Demdex. IV contrast, 16 ml dotarem was administered.COMPARISON: No prior mammograms are breast ultrasounds are available comparison. PET CT January 06, 2017.FINDINGS:Right breast: The patient is status post right complete mastectomy. There is 32 mm transverse by 8 mm deep mixed enhancement at the mastectomy site scar and chest wall. Enhancement is nonspecific and may represent fat necrosis, recurrence cannot be excluded.Left breast: There is mild background parenchymal enhancement left breast. 1. In the left axilla, there is enlarged 13 x 8 mm axillary lymph node seen best on axial slice number 100. This has rapid wash in and washout2. Left upper outer quadrant, posterior depth 1 o clock approximately 6 cm from the nipple, there is 5 mm homogeneously enhancing mass. This demonstrates rapid initial kinetics and washout. This may represent lymph node in the axillary tail region, however, is indeterminate.3. 4 mm oval enhancing mass 6 o clock posterior depth breast adjacent to a blood vessel resembles intramammary lymph node. This demonstrates rapid wash in and washout.No right or left internal mammary adenopathy. No right axillary adenopathy.IMPRESSION:1. Nonspecific enhancing masses left 6 o clock, left 1 o clock and left axilla. The smaller masses may represent intramammary lymph nodes and the left axillary mass appears enlarged.2. Enhancement at the right mastectomy scar site/chest wall may represent fat necrosis versus recurrence.Recommendation:1. Previous mammograms and breast ultrasounds as well as biopsies are requested for comparison.2. If previous exams are not obtainable within 30 days or if the findings are not stable for least 2 years, a second look ultrasound bilaterally and possible mammogram are recommended.BIRADS 0 - Incomplete. Needs additional imaging for evaluation. For internal use only. P:0 BREAST ULTRASOUND CORE BIOPSY LEFT 2018-05-02 13:22:22 - BREAST ULTRASOUND CORE BIOPSY LEFTULTRASOUND GUIDED BIOPSY LEFT BREAST WITH MARKING DEVICE INSERTED: 04/26/2018CLINICAL: Ultrasound biopsy, right breast. Comparison is made to exam [facility]2018 [facility] An ultrasound guided biopsy using real-time ultrasound was performed for the 3 cm lymph node located in the left axillary tail. The skin was prepped in the usual manner. Local anesthetic was administered to the access site. A 14 gauge biopsy needle was placed adjacent to the abnormality under ultrasound guidance. Once the needle was documented to be in the correct location, multiple specimens were obtained using a BARD biopsy device. A clip was inserted into the biopsy cavity. The specimens were sent to the laboratory for pathological analysis. IMPRESSION: ULTRASOUND GUIDED BIOPSY MALIGNANT Ultrasound guided biopsy of the 3 cm lymph node in the left axillary tail was successful with no apparent post procedure complications. PATHOLOGY INDICATES:Malignant metastatic ductal carcinoma. Jacklyn Cox M.D. dm/:05/02/2018 13:22:22 Entry: - 05/03/2018 08:05:42Imaging Technologist: Keysha GARCIA, [facility] DI[facility] MAMM LEFT CAD DIGITAL 2018-04-26 11:03:15 - DIAG MAMM LEFT CAD DIGITALUNILATERAL LEFT DIGITAL DIAGNOSTIC MAMMOGRAM WITH CAD POST-PROCEDURE IMAGING FOR MARKER PLACEMENT: 04/26/2018CLINICAL: Post clip placement. Current mammographic images were evaluated by either a [employer] M-Vu or a [employer] ImageChecker CAD (computer aided detection system). Comparison is made to exams dated 03/31/2018 mammogram, 02/10/2017 mammogram, and 09/03/2015 [facility]. There are scattered fibroglandular tissues in the left breast. There is a marker clip in the appropriate position in the left axilla. This marker clip placement is at the biopsy site. IMPRESSION: POST PROCEDURE IMAGING FOR MARKER PLACEMENTThere was a successful marker clip placement in the left axilla.Jacklyn Cox M.D. dm/:04/26/2018 11:03:15 Electrician: Yumiko GARCIA, [facility]-FWMammogram BI-RADS: Post-procedure mammogram for marker placement BREAST ULTRASOUND BILATERAL 2018-03-31 15:48:26 - BREAST ULTRASOUND BILATERALULTRASOUND OF BOTH BREASTS AND RIGHT AXILLA: 03/31/2018CLINICAL: History of Breast Cancer. No prior exams were available for comparison. Real-time ultrasound of both marcel asts and right axilla was performed. There is a 3 cm lymph node in the left axilla that has increased in size and cortical thickness - 6 mm. No abnormalities were seen sonographically in the left breast or the right axilla. The right breast has been surgically removed. The chest wall shows no abnormalities. IMPRESSION: SUSPICIOUS OF MALIGNANCY - FOLLOW-UP RECOMMENDEDThe 3 cm lymph node needs histological evaluation. An ultrasound guided biopsy is recommended. Jacklyn Cox M.D. dm/:03/31/2018 15:48:26 Entry: cp - 03/31/2018 15:53:31Imaging Technologist: Keysha GARCIA, [facility]-FWletter sent: BIRADS 4/5 Biopsy Ultrasound BI-RADS: 4 Suspicious abnormality DIAG MAMM LEFT GEORGE CAD DIGITAL 2018-03-31 15:44:56 - DIAG MAMM LEFT GEORGE CAD DIGITALUNILATERAL LEFT DIGITAL DIAGNOSTIC MAMMOGRAM 3D/2D WITH CAD: 03/31/2018CLINICAL: Follow up to previous exam. Digital breast tomosynthesis was performed in addition to routine CC and MLO views. Current mammographic images were evaluated by either a [employer] M-Vu or a [employer] ImageChecker CAD (computer aided detection system). Comparison is made to exams dated 07/12/2015 mammogram, 07/06/2014 mammogram, and 06/09/2013 mammogram - [facility] There are scattered fibroglandular tissues in the left breast. There is a lymph node in the left axilla that has increased in size. No other significant masses or calcifications are seen in the breast. IMPRESSION: INCOMPLETE ASSESSMENT: ADDITIONAL IMAGING EVALUATION RECOMMENDEDUltrasound pending for additional theresa luation. Jacklyn Cox M.D. dm/:03/31/2018 15:44:56 Entry: cp - 03/31/2018 15:53:10Imaging Technologist: Slime GARCIA, [facility]-FWMammogram BI-RADS: 0 Indeterminate
--- OUTSIDE RECORDS SUMMARY | 2018-06-20 07:04 | XMS REPORT ---
Author Author Trevor Blake Organization [employer] Address Unknown Phone Unavailable Care Team Providers Care Facilities Maintenance Manager Name Role Phone Trevor Blake CP Unavailable Allergies No Known Allergies Problems Problem Type Condition Code Onset Dates Condition Status Problem Osteoporosis M81.0 Active Problem Vitamin D deficiency E55.9 Active Medications No Known Medications Results No Known Results Summary Purpose [employer] Submission
--- OUTSIDE RECORDS SUMMARY | 2018-06-20 07:04 | XMS REPORT ---
Author Author Jam Cuadra Organization [employer] Address Unknown Phone Unavailable Care Team Providers Care Civil Celebrant Name Role Phone Venecia, Jam CP Unavailable Allergies, Adverse Reactions, Alerts Substance Reaction Event Type penicillin rash Non Drug Allergy Problems Problem Type Condition Code Onset Dates Condition Status Problem Osteoporosis M81.0 Active Problem Vitamin D deficiency E55.9 Active Assessment Osteoporosis M81.0 Active Assessment Vitamin D deficiency E55.9 Active Medications Medication Code System Code Instructions Start Date End Date Status Dosage Omeprazole [facility] 66052388859 40 MG Orally Once a day Active 1 capsule Levothyroxine Sodium [facility] 95576999049 88 MCG Orally Once a day Active 1 tablet on an empty stomach in the morning Probiotic ND 88679542428 250 MG Orally Twice a day Active 1 capsule Multivitamin [facility] 26488-69848 - Orally Active as directed Dilantin ND 79224888382 100 MG Orally twice a day Active 1 capsule Sertraline HCl ND 13697929808 50 MG Orally Once a day Active 1 tablet Tumeric NDC 0 400 MG Orally Once a day Active 1 capsule Green Tea ND 92787495726 150 MG Orally Active as directed Prolia [facility] 12432377357 60 MG/ML Subcutaneous Dec 13, 2017 Active as directed Oxybutynin Chloride [facility] [address]-85 15 MG Orally Active as directed Vital Signs Date/Time: Dec 13, 2017 BMI 25.58 Index Weight 131 lbs Height 60 in Temperature 98.2 F Cardiac Monitoring Heart Rate 72 /min Blood Pressure Diastolic 60 mm Hg Blood Pressure Systolic 108 mm Hg Results Name Result Date Reference Range Unit Abnormality Flag VITAMIN D, 25 OH ----VITAMIN D, 25 OH 39 [id number] SEE BELOW NG/ML Summary Purpose [employer] Submission
--- OUTSIDE RECORDS SUMMARY | 2018-06-20 07:04 | XMS REPORT ---
Author Author Trevor Blake Organization [employer] Address Unknown Phone Unavailable Care Team Providers Care Water Softener Servicer And Installer Name Role Phone Trevor Blake CP Unavailable Allergies No Known Allergies Problems Problem Type Condition Code Onset Dates Condition Status Problem Osteoporosis M81.0 Active Problem Vitamin D deficiency E55.9 Active Medications No Known Medications Results No Known Results Summary Purpose [employer] Submission
--- OUTSIDE RECORDS SUMMARY | 2018-06-20 07:04 | XMS REPORT ---
Author Author Trevor Blake Organization [employer] Address Unknown Phone Unavailable Care Team Providers Care Farm Instructor Name Role Phone Trevor Blake CP Unavailable Allergies No Known Allergies Problems Problem Type Condition Code Onset Dates Condition Status Problem Osteoporosis M81.0 Active Assessment Osteoporosis M81.0 Active Problem Vitamin D deficiency E55.9 Active Medications Medication Code System Code Instructions Start Date End Date Status Dosage Prolia [facility] 24431914069 60 MG/ML Subcutaneous q 6 months Dec 13, 2017 Active as directed Results No Known Results Summary Purpose [employer] Submission
--- OUTSIDE RECORDS SUMMARY | 2018-06-20 07:04 | XMS REPORT ---
Author Author Jam Cuadra Organization [employer] Address Unknown Phone Unavailable Care Team Providers Care Asset Recovery Specialist Name Role Phone VeneciaJam martinez CP Unavailable Allergies, Adverse Reactions, Alerts Substance Reaction Event Type penicillin rash Non Drug Allergy Problems Problem Type Condition Code Onset Dates Condition Status Problem Osteoporosis M81.0 Active Problem Vitamin D deficiency E55.9 Active Assessment Osteoporosis M81.0 Active Medications Medication Code System Code Instructions Start Date End Date Status Dosage Prolia [facility] 78063263490 60 MG/ML Subcutaneous q 6 months Dec 13, 2017 Active as directed Green Tea ND 18302548075 150 MG Orally Active as directed Multivitamin [facility] 94162-[address]362 - Orally Active as directed Dilantin ND 56778147208 100 MG Orally twice a day Active 1 capsule Oxybutynin Chloride [facility] [address]-84 15 MG Orally Active as directed Omeprazole ND 19673423335 40 MG Orally Once a day Active 1 capsule Probiotic ND 11938778816 250 MG Orally Twice a day Active 1 capsule Tumeric NDC 0 400 MG Orally Once a day Active 1 capsule Sertraline HCl ND 01288339444 50 MG Orally Once a day Active 1 tablet Levothyroxine Sodium ND 10070303050 88 MCG Orally Once a day Active 1 tablet on an empty stomach in the morning Vital Signs Date/Time: Dec 23, 2017 BMI 25.58 Index Weight 131 lbs Height 60 in Temperature 99.2 F Cardiac Monitoring Heart Rate 80 /min Blood Pressure Diastolic 86 mm Hg Blood Pressure Systolic 130 mm Hg Results No Known Results Summary Purpose [employer] Submission
[2018-06-20 08:06] LABS: BASOPHILS % 0.6 % (0.0-1.0); EOSINOPHILS # (AUTO) 0.1 (0.0-0.4); EOSINOPHILS % 1.5 % (0.0-6.0); HEMATOCRIT 41.9 % (34.2-44.1); HEMOGLOBIN 14.2 g/dL (12.0-16.0); LYMPHOCYTES # (AUTO) 2.1 (1.0-3.2); MEAN CORPUSCULAR HEMOGLOBIN 32.8 pg (28-32); MEAN CORPUSCULAR HGB CONC 33.9 g/dL (31-35); MEAN CORPUSCULAR VOLUME 96.8 fL (81-99); MONOCYTES # (AUTO) 0.7 (0.2-0.8); MONOCYTES % 10.6 % (4.4-11.3); NEUTROPHILS # (AUTO) 3.7 (2.1-6.9); NEUTROPHILS % 56.1 % (38.7-80.0); PLATELET COUNT 204 x10e3/uL (140-360); RED BLOOD COUNT 4.33 x10e6/uL (3.6-5.1); RED CELL DISTRIBUTION WIDTH 13.5 % (11.7-14.4)
[2018-06-20 09:40] LABS: ANION GAP 13.4 mmol/L (8-16); BLOOD UREA NITROGEN 11 mg/dL (7-26); BUN/CREATININE RATIO 16 (6-25); CALCIUM 8.9 mg/dL (8.4-10.2); CARBON DIOXIDE 23 mmol/L (22-29); CHLORIDE 102 mmol/L (98-107); CREATININE, SERUM 0.67 mg/dL (0.57-1.11); EST GLOMERULAR FILTRATION RATE > 60 ML/MIN (60-); GLUCOSE 103 mg/dL (74-118); POTASSIUM 3.4 mmol/L (3.5-5.1); SODIUM 135 mmol/L (136-145)
[2018-06-20] MEDS ORDERED: SODIUM CHLORIDE 0.9% 1000ML 1,000 ML IV SCH (11:14)
[2018-06-20] MEDS ORDERED: ONDANSETRON HCL INJ 2MG/ML 2ML 2 MG/ML VIAL IV PRN (11:15)
[2018-06-20] MEDS ORDERED: HYDROMORPHONE 2MG/ML 2 MG/ML ML IV PRN (11:15)
[2018-06-20] MEDS ORDERED: HYDROCODONE/APAP 7.5MG-325MG 1 EA TAB PO PRN (11:15)
[2018-06-20] MEDS ORDERED: ACETAMINOPHEN 1000 MG/100 ML IV PRN (11:15)
[2018-06-20] MEDS ORDERED: FENTANYL CITRATE/PF 100MCG/2 ML INJ ONE ×2 (11:48→18:47)
[2018-06-20] MEDS ORDERED: ONDANSETRON HCL INJ 2MG/ML 2ML 2 MG/ML VIAL ONE ×2 (12:11→17:38)
[2018-06-20 13:45] VITALS: BP 124/67
--- NOTE | 2018-06-20 15:12 | Operative Report ---
DATE OF PROCEDURE: 06/20/2018 SURGEON: Stefano Ching MD PREOPERATIVE DIAGNOSIS: Carcinoma of the left breast with positive left axillary nodes. 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 OPERATION PERFORMED: Left modified radical mastectomy. PAPER SPOOLER: Trace Ching M.D. SECOND PAPER SPOOLER: KEYSHAWN Khalil. ANESTHESIA: General. COMPLICATIONS: None. ESTIMATED BLOOD LOSS: 25 mL. DESCRIPTION OF PROCEDURE: With the patient lying in bed in the supine position under good general anesthesia, the left chest and axilla were prepped with Betadine solution and draped in the usual manner. An elliptical incision was made to include the nipple areolar complex. Flaps were then developed in all directions. The borders of the flaps were superiorly to the clavicle, medially to the sternum, inferiorly to the rectus muscle, laterally to the latissimus dorsi. The breast was then slowly and carefully taken off the pectoralis major muscle using the cautery and was swung laterally. The lateral border of pectoralis major muscle was then entered and the groove between the major and minor muscle. The fat pad was as part of the specimen. The lateral border of the pectoralis minor muscle was then dissected and the axilla was entered at the top. The axillary vein was identified and preserved and all the fat pad below the axillary fat pad was removed. The long thoracic and thoracodorsal nerves were preserved. All bleeding points were either electrocoagulated or ligated with 3-0 silk. There was some palpable lymph nodes, which were all included in the specimen and no gross and large lymph nodes were left behind. The specimen was totally removed and sent for pathological examination. The whole area was thoroughly irrigated. Perfect hemostasis was ascertained. Two 10 flat Eliecer-Back drains were placed, one over the pectoralis muscle, the other one in the axilla and brought out through separate stab wound incisions and sutured to the skin with 2-0 silk and the skin was then closed with interrupted vertical mattress sutures of 2-0 and 3-0 silk. Dressing was applied. The sponge, lap, and needle count was correct. The patient tolerated the procedure well and returned to the recovery room in stable condition. MD NEW [place]/GABRIELLE /[id number]
[2018-06-20] MEDS ORDERED: SEVOFLURANE INHAL SOLN 250 ML PEN BTL ONE (17:38)
[2018-06-20] MEDS ORDERED: LIDOCAINE HCL 2% LOCAL INJ 5 ML SDV VIAL INJ ONE (17:38)
[2018-06-20] MEDS ORDERED: DEXAMETHASONE SOD PHOS INJ 4 MG/ML VIAL ONE (17:38)
[2018-06-20] MEDS ORDERED: EPHEDRINE SULFATE INJ 50 MG/10 ML SYR ONE (17:38)
[2018-06-20] MEDS ORDERED: PROPOFOL IV EMULSION 10 MG/ML 20 ML VIAL ONE (17:38)
[2018-06-20] MEDS ORDERED: PHENYTOIN SODIUM EXT REL 100 MG CAP PO SCH (21:00)
[2018-06-21] MEDS ORDERED: SERTRALINE HCL 50 MG TAB PO SCH (09:00)
== END 2018-06-20 14:36 | disposition home or self-care (01) ==
LOC: OR 06:58 → PACU V 11:16
PROVIDERS: ADMIT Surgery; ATTEND Surgery
DX: C50.912 Malignant neoplasm of unspecified site of left female breast (principal); C77.3 Secondary and unspecified malignant neoplasm of axilla and upper limb lymph nodes; Z01.810 Encounter for preprocedural cardiovascular examination; Z01.812 Encounter for preprocedural laboratory examination; Z01.811 Encounter for preprocedural respiratory examination; Z88.0 Allergy status to penicillin; Z88.8 Allergy status to other drugs, medicaments and biological substances; K21.9 Gastro-esophageal reflux disease without esophagitis
CPT/HCPCS: 19307; 36415; 71046; 80048; 85025; 88309; 93005; G0378; J1100; J2001; J2405; J2704; J7030

== ENCOUNTER 2024-09-06 14:16 | Emergency (ER) | payer MEDICARE, OTHER ==
[~2024-09-06] VITALS: Ht 157.5 cm; Wt 57.2 kg
[2024-09-06 14:31] VITALS: PULSE 73; RESP 18; TEMP 98; O2SAT 99
[2024-09-06 14:48] LABS: BASOPHILS % 0.5 % (0.0-1.0); EOSINOPHILS % 0.5 % (0.0-6.0); LYMPHOCYTES % 40.1 % (18.0-39.1); MONOCYTES % 6.3 % (4.4-11.3); NEUTROPHILS % 52.5 % (38.7-80.0); RED CELL DISTRIBUTION WIDTH 13.6 % (11.7-14.4)
[2024-09-06] MEDS ORDERED: ULTRAM 50MG50 MG PO (14:51)
[2024-09-06] MEDS ORDERED: FEMARA2.5 MG PO (14:51)
[2024-09-06] MEDS ORDERED: ALPRAZOLAM0.25 M1 PO (14:51)
[2024-09-06] MEDS ORDERED: LEVOTHYROXINE112 MCG PO (14:51)
[2024-09-06] MEDS ORDERED: PROPRANOLOL HCL10 MG PO (14:51)
[2024-09-06] MEDS ORDERED: CALCIUM CARBON500 MG PO (14:51)
[2024-09-06] MEDS ORDERED: METHOCARBAMOL750 MG PO (14:51)
[2024-09-06] MEDS ORDERED: [UNRECOGNIZED DRUG - OTHER] PO (14:51)
[2024-09-06] MEDS ORDERED: BUSPIRONE HCL10 MG PO (14:51)
[2024-09-06] MEDS ORDERED: SERTRALINE HCL100 MG PO (14:51)
[2024-09-06] MEDS ORDERED: DOCUSATE SODIU100 MG PO (14:51)
[2024-09-06 15:16] LABS: EST GLOMERULAR FILTRATION RATE 78 ML/MIN (>=60)
[2024-09-06] MEDS: DEXAMETHASONE SOD PHOS 10 MG/1 ML VIAL IV ONE (16:18)
[2024-09-06] MEDS: KETOROLAC TROMETHAMINE 30 MG/ML VIAL IV STA (16:18)
[2024-09-06 16:26] LABS: LEUKOCYTE ESTERASE ,URINE NEGATIVE (NEGATIVE); PROTEIN,URINE DIPSTICK NEGATIVE (NEGATIVE)
[2024-09-06 16:27] LABS: URINE UROBILINOGEN 0.2 mg/dL (0.2 - 1)
[2024-09-06 16:47] LABS: EPITHELIAL CELLS,URINE FEW /LPF; WBC,URINE (MAN) 0-5 /HPF (0-5)
[2024-09-06] MEDS ORDERED: MEDROL4 M2 PO (18:15)
== END 2024-09-06 18:35 | disposition home or self-care (01) ==
LOC: ER 15:38
DX: M54.41 Lumbago with sciatica, right side (principal); E03.9 Hypothyroidism, unspecified; G40.909 Epilepsy, unspecified, not intractable, without status epilepticus; K21.9 Gastro-esophageal reflux disease without esophagitis; M81.0 Age-related osteoporosis without current pathological fracture; F32.A Depression, unspecified; R94.31 Abnormal electrocardiogram [ECG] [EKG]; Z85.3 Personal history of malignant neoplasm of breast
CPT/HCPCS: 36415; 71045; 72131; 80053; 81001; 82550; 84484; 85025; 93005; 99284; J1100; J1885

== ENCOUNTER 2024-12-18 16:22 | Emergency (ER) | payer MEDICARE ==
[~2024-12-18] VITALS: Ht 157.5 cm; Wt 57.2 kg
[~2024-12-18 16:22] MED LIST changes: +ALPRAZOLAM0.25 M1 PO; +BUSPIRONE HCL10 MG PO; +CALCIUM CARBON500 MG PO; +DOCUSATE SODIU100 MG PO; +FEMARA2.5 MG PO; +LEVOTHYROXINE112 MCG PO; +MEDROL4 M2 PO; +METHOCARBAMOL750 MG PO; +PROPRANOLOL HCL10 MG PO; +SERTRALINE HCL100 MG PO; +ULTRAM 50MG50 MG PO; +[UNRECOGNIZED DRUG - OTHER] PO
[2024-12-18 18:57] LABS: BASOPHILS % 0.7 % (0.0-1.0); EOSINOPHILS % 1.0 % (0.0-6.0); LYMPHOCYTES % 41.7 % (18.0-39.1); MONOCYTES % 6.7 % (4.4-11.3); NEUTROPHILS % 49.7 % (38.7-80.0); RED CELL DISTRIBUTION WIDTH 13.2 % (11.7-14.4)
[2024-12-18 18:59] LABS: LEUKOCYTE ESTERASE ,URINE TRACE (NEGATIVE); PROTEIN,URINE DIPSTICK NEGATIVE (NEGATIVE); URINE UROBILINOGEN 0.2 mg/dL (0.2 - 1)
[2024-12-18 19:09] LABS: EPITHELIAL CELLS,URINE FEW /LPF; WBC,URINE (MAN) 0-5 /HPF (0-5)
[2024-12-18 19:17] LABS: EST GLOMERULAR FILTRATION RATE 71.0 ML/MIN (>=60)
[2024-12-18] MEDS ORDERED: IOPAMIDOL 370 MG/ML 100 ML INFUS..BTL INJ ONE (19:29)
[2024-12-18 23:05] VITALS: PULSE 60; RESP 17; TEMP 98.8
[2024-12-18 23:18] VITALS: BP 148/88; PULSE 60; RESP 17; TEMP 98.8; O2SAT 99
== END 2024-12-18 23:13 | disposition home or self-care (01) ==
LOC: ER 20:52
DX: R10.32 Left lower quadrant pain (principal); K59.00 Constipation, unspecified; R11.0 Nausea; E03.9 Hypothyroidism, unspecified; G40.909 Epilepsy, unspecified, not intractable, without status epilepticus; N32.81 Overactive bladder; M81.0 Age-related osteoporosis without current pathological fracture; F41.9 Anxiety disorder, unspecified; F32.A Depression, unspecified; M19.09 Primary osteoarthritis, other specified site; Z85.3 Personal history of malignant neoplasm of breast
CPT/HCPCS: 36415; 74177; 80053; 81001; 85025; 99284; Q9967